=== PATIENT | female | born 1970 | race Caucasian/White ===

== ENCOUNTER 2017-02-19 19:04 | Emergency (ER) | payer MEDICARE, MEDICAID ==
[2017-02-19] MEDS ORDERED: BENZONATATE 100 MG CAPSULE PO ONE (20:11)
[2017-02-19] MEDS ORDERED: DEXAMETHASONE SOD PHOS INJ 10 MG/1 ML VIAL IM ONE (20:11)
[2017-02-19] MEDS ORDERED: ALBUTEROL SULFATE 0.083% NEB 2.5 MG/3 ML AMPUL NEB ONE (20:11)
--- NOTE | 2017-02-19 20:17 | ER Document Report ---
ED General - General Mode of Arrival: Ambulatory Information source: Patient TRAVEL OUTSIDE OF THE [place] IN LAST 30 DAYS: No - General Chief Complaint: Headache Stated Complaint: VOMITING Time Seen by Provider: 02/19/17 19:55 - HPI Notes: Patient is a 46-year-old female presented emergency department for cough headache and difficulty breathing. Patient states she has had these symptoms for 2 days. Patient states her cough is productive with thick green sputum. Patient also has some chills and rhinorrhea. Patient states she uses nebulizers and inhalers which have not been helping her. Patient does have seasonal allergies and she takes Claritin for such. Patient denies having a diagnosis of COPD. Patient is allergic to Prednisone and red dye but states she can take Decadron. (TITO FERNANDEZ) - Related Data Allergies/Adverse Reactions: prednisone [Prednisone] Allergy (Severe, Verified 02/19/17 19:09) Hives red dye [Red Dye] Allergy (Severe, Verified 02/19/17 19:09) Hives Past Medical History - General Information source: Patient - Social History Smoking Status: Current Every Day Smoker Cigarette use (# per day): Yes Chew tobacco use (# tins/day): No Smoking Education Provided: Yes - > 5 minutes Frequency of alcohol use: None Drug Abuse: None Family History: None Patient has suicidal ideation: No Patient has homicidal ideation: No - Past Medical History Cardiac Medical History: Reports: Hx Coronary Artery Disease, Hx Hypercholesterolemia, Hx Hypertension - on meds Pulmonary Medical History: Reports: Hx Asthma - inhalers,neb, Hx Bronchitis - hx of, Hx Pneumonia - hx of Neurological Medical History: Reports: Hx Cerebrovascular Accident - 2011, [facility] Endocrine Medical History: Reports: Hx Diabetes Mellitus Type 2 Musculoskeltal Medical History: Reports Hx Arthritis - generalized Psychiatric Medical History: Reports: Hx Bipolar Disorder, Hx Depression Past Surgical History: Reports: Hx Oral Surgery, Hx Orthopedic Surgery - R ankle , Hx Tonsillectomy - Immunizations Hx Diphtheria, Pertussis, Tetanus Vaccination: No Hx Pneumococcal Vaccination: 03/22/14 Review of Systems - Review of Systems Constitutional: See HPI, Chills. denies: Fever EENT: See HPI, Nose congestion Cardiovascular: No symptoms reported. denies: Chest pain Respiratory: See HPI, Cough, Short of breath, Sputum Gastrointestinal: No symptoms reported Musculoskeletal: No symptoms reported Skin: No symptoms reported Hematologic/Lymphatic: No symptoms reported Neurological/Psychological: See HPI, Headaches Physical Exam - Vital signs Interpretation: Normal - Vital signs Vitals: Temp Pulse Resp BP Pulse Ox 98.1 F 116 H 20 133/84 H 97 02/19/17 19:09 02/19/17 19:09 02/19/17 19:09 02/19/17 19:09 02/19/17 19:09 - Notes Notes: GENERAL: Alert, interacts well. Mild distress. HEAD: Normocephalic, atraumatic. EYES: Pupils equal, round, and reactive to light. Extraocular movements intact. ENT: Oral mucosa moist, tongue midline. NECK: Full range of motion. Supple. Trachea midline. LUNGS: Decreased air movement. Wet cough. Speaking 4-5 word sentences. Expiratory wheezes. No respiratory distress. HEART: Mild tachycardia. Regular rhythm. No murmurs, gallops, or rubs. ABDOMEN: Soft, non-tender. Non-distended. Bowel sounds present in all 4 quadrants. EXTREMITIES: Moves all 4 extremities spontaneously. No edema. No cyanosis. NEUROLOGICAL: Alert and oriented x3. Normal speech. PSYCH: Normal affect, normal mood. SKIN: Warm, dry, normal turgor. No rashes or lesions noted. (TITO FERNANDEZ) Course - Re-evaluation Re-evalutation: 02/19/17 21:45 Chest x-ray does not show any signs of pneumonia, oxygenating well, symptoms decreased with breathing treatments. Patient given dose of Decadron as she is allergic to prednisone, discharged to home on Decadron orally, albuterol and Tessalon Perles. (KATY SOFIA) - Vital Signs Vital signs: Temp Pulse Resp BP Pulse Ox 98.6 F 111 H 20 128/90 H 95 02/19/17 22:03 02/19/17 22:03 02/19/17 22:03 02/19/17 22:03 02/19/17 22:03 Discharge - Discharge Clinical Impression: Acute wheezy bronchitis, Tobacco abuse, Tobacco abuse counseling Hypertension Qualifiers: Hypertension type: essential hypertension Qualified Code(s): I10 - Essential ( primary) hypertension Condition: Stable Disposition: HOME, SELF-CARE Additional Instructions: Bronchitis You have acute bronchitis. This disease is an infection or inflammation of the air passageways in your lungs. Symptoms usually include cough, low grade fever, shortness of breath, and wheezing. The cough usually persists for a couple of weeks. Most cases of bronchitis get better without antibiotics. We prescribe antibiotics when we believe bacteria are damaging your airways, or if there's high risk the bronchitis will worsen into pneumonia. Increase your fluid intake. A cool mist humidifier may make your lungs more comfortable. An expectorant (cough medicine that loosens phlegm) can help. If you smoke, STOP!!! Recovery from bronchitis can be somewhat slow, but you should see improvement within a day or two. Repeated episodes of bronchitis may result in lung damage -- for example, chronic bronchitis, recurrent pneumonias, or emphysema. Call the doctor if you develop increasing fever, shortness of breath, chest pain, bloody sputum, or otherwise worsen. If you have not improved at all after several days, contact the physician. Prescriptions: Benzonatate [Tessalon Perles 100 mg Capsule] 100 mg PO Q8HP PRN #40 capsule PRN Reason: Dexamethasone [Decadron 4 Mg Tablet] 4 mg PO ONCE PRN #3 tablet PRN Reason: Forms: Smoking Cessation Education, Elevated Blood Pressure Referrals: MARYELLEN ZARATE MD [Primary Care Provider] - Follow up as needed Scribe Attestation: 02/19/17 23:57 I personally performed the services described in the documentation, reviewed and edited the documentation which was dictated to the scribe in my presence, and it accurately records my words and actions. (KATY SOFIA) Scribe Documentation - Scribe Written by Sebastien:: Sebastien Villanueva, 02/19/2017 23:22 acting as scribe for :: Inez
--- NOTE | 2017-02-19 21:24 | RADIOLOGY REPORT (SQ) ---
EXAM DESCRIPTION: CHEST PA/LAT COMPLETED DATE/TIME: 02/19/2017 9:10 pm REASON FOR STUDY: cough, wheeze, r/o pna COMPARISON: 03/18/2015 EXAM PARAMETERS: NUMBER OF VIEWS: two views TECHNIQUE: Digital Frontal and Lateral radiographic views of the chest acquired. RADIATION DOSE: NA LIMITATIONS: none FINDINGS: LUNGS AND PLEURA: No opacities, masses or pneumothorax. No pleural effusion. MEDIASTINUM AND HILAR STRUCTURES: No masses or contour abnormalities. HEART AND VASCULAR STRUCTURES: Heart normal size. No evidence for failure. BONES: No acute findings. HARDWARE: None in the chest. OTHER: No other significant finding. IMPRESSION: NO SIGNIFICANT RADIOGRAPHIC FINDING IN THE CHEST. TECHNICAL DOCUMENTATION: JOB ID: [id number] [email or web address]- All Rights Reserved
[2017-02-19 22:05] VITALS: BP 128/90
== END 2017-02-19 22:04 | disposition home or self-care (01) ==
LOC: ER 19:04
DX: J20.9 Acute bronchitis, unspecified (principal); R51 Headache; I10 Essential (primary) hypertension; F17.210 Nicotine dependence, cigarettes, uncomplicated; I25.10 Atherosclerotic heart disease of native coronary artery without angina pectoris; E78.00 Pure hypercholesterolemia, unspecified; I69.954 Hemiplegia and hemiparesis following unspecified cerebrovascular disease affecting left non-dominant side; E11.9 Type 2 diabetes mellitus without complications
CPT/HCPCS: 99406; 99283; 71020; A9270 ×2; J1100

== ENCOUNTER → 2017-03-30 | Outpatient (CLI) | payer MEDICARE, MEDICAID ==
--- NOTE | 2017-03-30 10:00 | RADIOLOGY REPORT (SQ) ---
EXAM DESCRIPTION: MRI LT LOWER JOINT WITHOUT COMPLETED DATE/TIME: 03/30/2017 9:43 am REASON FOR STUDY: OSTEOARTHRITIS LT KNEE M17.12 UNILATERAL PRIMARY OSTEOARTHRITIS, LEFT KNEE COMPARISON: None. TECHNIQUE: Leftknee images acquired and stored on PACS. Multiplanar images include fat sensitive se quences as T1, water sensitive sequences as FST2 or STIR, cartilage sensitive sequences as FSPD, and gradient echo sequences. LIMITATIONS: None. FINDINGS: JOINT AND BURSAE: No effusion. BONE CORTEX AND MARROW: No alteration of signal to suggest marrow replacement. No worrisome bone lesi ons. No occult fracture. ACL: Intact. No degeneration or ganglion cyst. PCL: Intact. MCL: Intact. No periligamentous edema or fluid. LCL: Intact. No periligamentous edema or fluid. MEDIAL MENISCUS: No tears. No abnormal signal. LATERAL MENISCUS: No tears. No abnormal signal. MEDIAL COMPARTMENT: Cartilage preserved. No bone bruises or reactive marrow edema. No osteophytes. LATERAL COMPARTMENT: Cartilage preserved. No bone bruises or reactive marrow edema. No osteophytes. PATELLA: Normal location. Irregular diffuse patellar chondral loss. This is full-thickness near the upper patellar apex with underlying subchondral cysts. Small osteophytes. EXTENSOR MECHANISM: Intact. Quadriceps and patella tendons normal. SOFT TISSUES: Small loculated hyperintense T2 lesion tracks superiorly along the medial knee, posteri or to the femur. This appears to track back towards the joint, suspect a popliteal cyst measuring at least in craniocaudal extent. Similar probable bursa or inferiorly dissecting deep popliteal cyst a s well. This likely measures just under 5 cm craniocaudal. OTHER: No other significant finding. IMPRESSION: 1. Chondromalacia patella. 2. Small superiorly and inferiorly deep dissecting popliteal cysts are suspected. 3. No cruciate or collateral ligament pathology. Menisci intact. TECHNICAL DOCUMENTATION: JOB ID: [id number] [employer]- All Rights Reserved
== END ==
LOC: RAD 08:46
PROVIDERS: ATTEND Orthopaedic Surgery Sports Medicine
DX: M17.12 Unilateral primary osteoarthritis, left knee (principal)

== ENCOUNTER → 2017-04-26 | Outpatient (CLI) | payer MEDICARE, MEDICAID ==
--- NOTE | 2017-04-26 16:48 | WOMENS IMAGING REPORT ---
EXAM DESCRIPTION: 3D SCREENING MAMMO BILAT COMPLETED DATE/TIME: 04/26/2017 12:03 pm REASON FOR STUDY: ROUTINE SCREENING; Z12.31 Z12.31 ENCNTR SCREEN MAMMOGRAM FOR MALIGNANT NEOPLASM O F SLAVA COMPARISON: March 2016 TECHNIQUE: Standard craniocaudal and mediolateral oblique views of each breast recorded using digita l acquisition and breast tomosynthesis. LIMITATIONS: None. FINDINGS: No masses, calcifications or architectural distortion. No areas of suspicion. Read with the assistance of CAD. .[facility] - R2 Cenova Version 1.3 .[facility] Imaging - R2 Cenova Version 1.3 .[facility] - R2 Cenova Version 2.4 .[facility] - R2 Cenova Version 2.4 .[facility] - R2 Learning [employer] Teacher Version 9.2 IMPRESSION: NORMAL MAMMOGRAM. BIRADS 1. BREAST DENSITY: b. There are scattered areas of fibroglandular density. BIRAD: 1 NEGATIVE RECOMMENDATION: ROUTINE SCREENING COMMENT: The patient has been notified of the results by letter per SA requirements. Additional no tification policies are in place for contacting patient with suspicious or incomplete findings. Quality ID #[id number]: The [employer] recommends an annual screening mammogram for women aged 40 years or over. This facility utilizes a reminder system to ensure that all patients receive reminder letters, and/or direct phone calls for appointments. This includes reminders for routine scr eening mammograms, diagnostic mammograms, or other Breast Imaging Interventions when appropriate. Th is patient will be placed in the appropriate reminder system. The [employer] (ACR) has developed recommendations for screening MRI of the breast s in certain patient populations, to be used in conjunction with mammography. Breast MRI surveillanc e may be appropriate for women with more than 20% lifetime risk of developing breast cancer as deter mined by genetic testing, significant family history of the disease, or history of mantle radiation f or Hodgkins Disease. ACR Practice Guidelines 2008. DBT Technology DBT is a type of tomographic mammography. With conventional mammography, overlapping breast tissue ma y make lesions difficult to detect, even with good compression. DBT uses an x-ray tube that rotates a round the breast, taking images at different angles. These images are then combined to create thin sl ices of the breast that the radiologist can view as a 3D reconstruction. The [facility] unit can perform full-field digital mammograms (2D imaging); or DBT (3D imaging); or both, in a combination mode that quickly performs both the mammogram and the tomosynthesis scan while the breast is still compressed. PQRS 6045F: Fluoroscopic imaging is not utilized for breast tomosynthesis. TECHNICAL DOCUMENTATION: FINDING NUMBER: (1) ASSESSMENT: (1) JOB ID: [id number] [employer]- All Rights Reserved
== END ==
LOC: WI 11:39
PROVIDERS: ATTEND Internal Medicine
DX: Z12.31 Encounter for screening mammogram for malignant neoplasm of breast (principal)
CPT/HCPCS: 77063; G0202; 77067

== ENCOUNTER 2017-06-06 16:34 | Observation (INO) | payer MEDICARE, MEDICAID ==
--- NOTE | 2017-06-06 16:56 | RADIOLOGY REPORT (SQ) ---
EXAM DESCRIPTION: CT HEAD WITHOUT COMPLETED DATE/TIME: 06/06/2017 4:48 pm REASON FOR STUDY: Stroke-like symptoms COMPARISON: 03/18/2012. TECHNIQUE: Axial images acquired through the brain without intravenous contrast. Images reviewed wi th bone, brain and subdural windows. Images stored on PACS. All CT scanners at this facility use dose modulation, iterative reconstruction, and/or weight based d osing when appropriate to reduce radiation dose to as low as reasonably achievable (ALARA). [facility]: Dose Right [facility]: CareDose [facility]: Dose Right [facility]: Teradose 4D [facility]: EntrenaYa RADIATION DOSE: CT Rad equipment meets quality standard of care and radiation dose reduction techniq ues were employed. CTDIvol: 64.6 mGy. DLP: 1163 mGy-cm. mGy. LIMITATIONS: None. FINDINGS: VENTRICLES: Normal size and contour. CEREBRUM: No masses. No hemorrhage. No midline shift. No evidence for acute infarction. Normal gra y/white matter differentiation. No areas of low density in the white matter. CEREBELLUM: No masses. No hemorrhage. No alteration of density. No evidence for acute infarction. EXTRAAXIAL SPACES: No fluid collections. No masses. ORBITS AND GLOBE: No intra- or extraconal masses. Normal contour of globe without masses. CALVARIUM: No fracture. PARANASAL SINUSES: No fluid or mucosal thickening. SOFT TISSUES: No mass or hematoma. OTHER: No other significant finding. IMPRESSION: NORMAL BRAIN CT WITHOUT CONTRAST. EVIDENCE OF ACUTE STROKE: NO. COMMENT: Quality ID # [id number]: Final reports with documentation of one or more dose reduction techniques (e.g., Automated exposure control, adjustment of the mA and/or kV according to patient size, use of iterative reconstruction technique) TECHNICAL DOCUMENTATION: JOB ID: [id number] [employer]- All Rights Reserved
--- NOTE | 2017-06-06 17:08 | RADIOLOGY REPORT (SQ) ---
EXAM DESCRIPTION: CHEST SINGLE VIEW COMPLETED DATE/TIME: 06/06/2017 4:52 pm REASON FOR STUDY: Stroke-like symptoms COMPARISON: 02/19/2017. EXAM PARAMETERS: NUMBER OF VIEWS: One view. TECHNIQUE: Single frontal radiographic view of the chest acquired. RADIATION DOSE: NA LIMITATIONS: None. FINDINGS: LUNGS AND PLEURA: No opacities, masses or pneumothorax. No pleural effusion. MEDIASTINUM AND HILAR STRUCTURES: No masses. Contour normal. HEART AND VASCULAR STRUCTURES: Heart normal in size. Normal vasculature. BONES: No acute findings. HARDWARE: None in the chest. OTHER: No other significant finding. IMPRESSION: NO ACUTE RADIOGRAPHIC FINDING IN THE CHEST. TECHNICAL DOCUMENTATION: JOB ID: [id number] [employer]- All Rights Reserved
[2017-06-06] MEDS ORDERED: ASPIRIN 325 MG TABLET PO ONE (17:12)
--- NOTE | 2017-06-06 17:21 | ER Document Report ---
ED Neuro Symptoms/Deficit - General Mode of Arrival: Ambulatory Information source: Patient Notes: 47 year old female with history of CVA (2011), TIA x7 (most recent 2015), hypertension, hyperlipidemia, and diabetes mellitus presents to the ED complaining of left sided numbness and altered sensation that started yesterday. Patient reports that her left side feels like 'bricks', is heavy, and is having difficulty moving her left upper and lower extremities. Patient additionally complains of a 'thick' feeling to her tongue and is experiencing some difficulty talking. Patient denies any pain. Patient's last known normal is unknown, but symptoms began yesterday. Patient denies changes in vision, nausea, or vomiting. Family reports that the patient's left her 2 weeks ago and the patient has been worked up secondary to this. Following her stroke in 2011, the patient regained some feeling in her left extremities, but explains that today she feels worse and is similar to when she had her stroke in 2012. PCP: Dr. Anderson Neurologist: Dr. Delgadillo ([place]) TRAVEL OUTSIDE OF THE [place] IN LAST 30 DAYS: No - HPI Patient complains to provider of: Weakness - left side Onset: Yesterday Exact time of onset: unknown Symptoms are: Constant Loss of consciousness: No loss of consciousness Baseline Cognitive: Alert, oriented X 3 Alert To: Name/Voice New weakness: LUE, LLE Altered sensation: LLE Associated symptoms: Other - see notes above <AZUL VILLANUEVA - Last Filed: 06/06/17 19:54> <KATY SOFIA - Last Filed: 06/06/17 23:25> - General Chief Complaint: Numbness Stated Complaint: LEFT SIDE PAIN Time Seen by Provider: 06/06/17 16:54 - Related Data Allergies/Adverse Reactions: prednisone [Prednisone] Allergy (Severe, Verified 02/19/17 19:09) Hives red dye [Red Dye] Allergy (Severe, Verified 02/19/17 19:09) Hives Home Medications: Current Home Medications Desvenlafaxine Succinate [Pristiq] 100 mg PO DAILY 06/06/17 [History] Folic Acid/Multivit,Iron,[place] [One Daily For Women Tablet] 1 tab PO DAILY 06/06 [History] Insulin Aspart [Novolog Insulin (Aspart) 100 unit/mL] See Protocol SQ PRN PRN 12 /25/17 [History] Pregabalin [Lyrica] 75 mg PO DAILY 06/06/17 [History] Verapamil HCl [Verapamil ER] 120 mg PO DAILY 06/06/17 [History] Past Medical History - General Information source: Patient - Social History Smoking Status: Current Every Day Smoker Chew tobacco use (# tins/day): No Frequency of alcohol use: None Drug Abuse: None Family History: None - Past Medical History Cardiac Medical History: Reports: Hx Coronary Artery Disease, Hx Hypercholesterolemia, Hx Hypertension - on meds Denies: Hx Heart Attack Pulmonary Medical History: Reports: Hx Asthma - inhalers,neb, Hx Bronchitis - hx of, Hx Pneumonia - hx of Denies: Hx COPD, Hx Tuberculosis Neurological Medical History: Reports: Hx Cerebrovascular Accident - 2012, L side seakness TIA x7 (most recent 2015). Denies: Hx Seizures Endocrine Medical History: Reports: Hx Diabetes Mellitus Type 2 Renal/ Medical History: Denies: Hx Peritoneal Dialysis Musculoskeltal Medical History: Reports Hx Arthritis - generalized Psychiatric Medical History: Reports: Hx Bipolar Disorder, Hx Depression Past Surgical History: Reports: Hx Oral Surgery, Hx Orthopedic Surgery - R ankle , Hx Tonsillectomy - Immunizations Hx Diphtheria, Pertussis, Tetanus Vaccination: No Hx Pneumococcal Vaccination: 03/22/14 <AZUL VILLANUEVA - Last Filed: 06/06/17 19:54> Review of Systems - Review of Systems Constitutional: No symptoms reported EENT: No symptoms reported. denies: Blurred vision, Double vision Cardiovascular: No symptoms reported Respiratory: No symptoms reported Gastrointestinal: No symptoms reported. denies: Nausea, Vomiting Genitourinary: No symptoms reported Female Genitourinary: No symptoms reported Musculoskeletal: See HPI, Other - Left upper and lower extremity weakness Skin: No symptoms reported Hematologic/Lymphatic: No symptoms reported Neurological/Psychological: See HPI, Sensory change - left sided and tongue, Weakness - left upper and lower extremity weakness, Speech impairment, Numbness - left sided -: Yes All other systems reviewed and negative <AZUL VILLANUEVA - Last Filed: 06/06/17 19:54> Physical Exam - Notes Notes: GENERAL: Alert, interacts well. No acute distress. HEAD: Normocephalic, atraumatic. EYES: Pupils equal, round, and reactive to light. Extraocular movements intact. Central visual field intact, bilaterally. Peripheral vision decreased, bilaterally. ENT: Oral mucosa moist, tongue midline. NECK: Full range of motion. Supple. Trachea midline. LUNGS: Clear to auscultation bilaterally, no wheezes, rales, or rhonchi. No respiratory distress. HEART: Regular rate and rhythm. No murmurs, gallops, or rubs. ABDOMEN: Soft, non-tender. Non-distended. Bowel sounds present in all 4 quadrants. EXTREMITIES: Moves all 4 extremities spontaneously, but has left upper extremity drift and is unable to hold left lower extremity above the bed for more than 5 seconds. No edema, radial and dorsalis pedis pulses 2/4 bilaterally. No cyanosis. Weakness to the left upper and lower extremities. NEUROLOGICAL: Alert and oriented x3. Normal speech. Cranial nerves II through XII grossly intact. Finger to Nose test normal, bilaterally. [id number] test normal, bilaterally. Slightly decreased audience coordinator strength on the left. Right audience coordinator strength normal. Loss of complete sensation to the left lower extremity. Left upper extremity and right extremities sensation intact. PSYCH: Normal affect, normal mood. SKIN: Warm, dry, normal turgor. No rashes or lesions noted. <AZUL VILLANUEVA - Last Filed: 06/06/17 19:54> - Vital signs Vitals: Pulse Resp BP Pulse Ox 87 21 H 127/97 H 95 06/06/17 16:41 06/06/17 16:41 06/06/17 16:41 06/06/17 16:41 <KATY SOFIA - Last Filed: 06/06/17 23:25> Course - Laboratory Result Diagrams: 06/06/17 17:25 06/06/17 17:25 - Consults Dr. Short Time consulted: 18:21 Reason for consultation: 06/06/17 18:21 Not accepting admits until 19:15. Dr. Liang Time consulted: 18:23 Reason for consultation: 06/06/17 18:23 Not accepting admits until 19:15. Dr. Rodriguez Time consulted: 19:21 Reason for consultation: 06/06/17 19:21 Patient was discussed with Dr. Rodriguez and he agrees to admit the patient. <AZUL VILLANUEVA - Last Filed: 06/06/17 19:54> - Re-evaluation Re-evalutation: 06/06/17 19:27 Symptoms consistent with a stroke, they onset close to 24 hours ago therefore she is not a candidate for TPA. Not a candidate for CT perfusion to look for mismatch and possible clot retrieval given how long ago the symptoms started. CBC shows slight leukocytosis of 10.7 CMP unremarkable, cardiac enzymes negative , CT scan of the head negative, coags normal. Chest x-ray shows no acute process. No evidence of atrial fibrillation on her EKG or while she has been here in the emergency department. Discussed patient with Dr. Rodriguez who agrees to admit the patient to his service on [facility]. 06/06/17 23:25 Hospitalist will continue to manage hypertension - Vital Signs Vital signs: Temp Pulse Resp BP Pulse Ox 98.0 F 87 16 134/83 H 94 06/06/17 17:04 06/06/17 16:41 06/06/17 18:16 06/06/17 18:16 06/06/17 18:16 - Laboratory Result Diagrams: 06/06/17 17:25 06/06/17 17:25 Laboratory results interpreted by me: 06/06/17 06/06/17 17:25 17:25 WBC 10.7 H Glucose 115 H - EKG Interpretation by Me Additional EKG results interpreted by me: 06/06/17 19:28 EKG shows sinus rhythm at a rate of 93, right axis deviation, normal intervals, no ST segment elevations or depressions, nonspecific T-wave inversions in lead III per my interpretation. <KATY SOFIA - Last Filed: 06/06/17 23:25> ED Alteplase Inc/Exc Criteria - Date/Time patient arrived in ED: _: 06/06/2017 16:34 <AZUL VILLANUEVA - Last Filed: 06/06/17 19:54> - Date/Time patient last known well: Date/Time: unknown - Inclusion Criteria: 1: Patient presented to ED within 3 hours of acute ischemic stroke symptom onset ? -: No 2: Did baseline CT exclude intracranial hemorrhage and/or other risk factors? -: Yes 3: Is the age of the patient 18 years of age or greater? -: Yes : If any of the above questions are answered "NO" then stop, patient is not a candidate for Alteplase, : If all of the above questions are answered "YES" then continue with Exclusion Criteria. - The patient is: -: Included and is eligible to receive Alteplase. *Initiate bed placement at higher level of care* Reviewd risks & benefits of thrombolytic therapy: I have reviewed the risks and benefits of thrombolytic therapy with the patient and/or his/her family. -: Excluded and not eligible to receive Alteplase for the above exclusions. --: Yes - onset over 6 hours ago -: Excluded and not eligible to receive Alteplase for other reasons (specify in comments): - Diagnosis of TIA: -: Patient presented with transient symptoms that are now resolved and no other neurologic findings are currently present. List symptoms in comments. -: Patient is NOT a candidate for tPA. -: Yes -: ____(put name in comment) has been consulted for admission and continued evaluation of risk factor assessment. Comment: Michael <KATY SOFIA - Last Filed: 06/06/17 23:25> ED NIH Stroke Scale - NIH Stroke Scale When completed:: Before Alteplase *: 1. NIH scale should be completed with appropriate accompanying assessment tools. *: 2. The NIH should reflect what the patient is capable of doing and should not be coached by the clinician. 1a. Level of Consciousness: 0=Alert;keenly responsive -: 1=Drowsy -: 2=Obtunded -: 3=Coma/unresponsive or reflex to noxious stimuli. 1a. Responses: 0 1b. Orientation Questions: a. What month is it? -: b. How old are you? -: 0=Answers both questions correctly. -: 1=Answers one question correctly or patient is intubated or has orotracheal trauma. -: 2=Answers neither question correctly. 1b. Responses: 0 1c. Response to commands: a. Open and close eyes? -: b. Stock Checkerer and release hand? -: Credit is given despite weakness. Demonstration of task is permitted. Substitute command if hands cannot be used. -: 0=Performs both tasks correctly -: 1=Performs one task correctly -: 2=Performs neither task correctly 1c. Responses: 0 2. Gaze: Establish eye contact and instruct patient to "Follow my finger" -: 0=Normal -: 1=Partial gaze palsy. Gaze is abnormal in one or both eyes, but where forced deviation or total gaze paresis is not present. -: 2=Forced deviation or total gaze paresis. 2. Responses: 0 3. Visual Dyson: Sees fingers in all four quadrants. -: 0=No visual loss. -: 1=Partial hemianopsia. -: 2=Complete hemianopsia. -: 3=Bilateral hemianopsia (including Cortical blindness) 3. Responses: 0 - Visual field is intact centrally, bilaterally. Peripheral vision decreased, bilaterally. 4. Facial Movement: Instruct patient to: -: a. Show me your teeth -: b. Raise your eyebrows -: c. Close your eyes -: d. Smile -: 0=Normal symmetrical movement -: 1=Minor paralysis (flattened nasolabial fold, asymmetry on smiling). -: 2=Partial paralysis (total or near total paralysis of lower face). -: 3=Complete paralysis of upper and lower face 4. Responses: 0 5. Motor functions (left arm): Alternate sides and extend each arm with palms down (90 degrees if sitting or 45 degrees for supine). -: 0=No drift;limb holds for full 10 seconds. -: 1=Drift; limb holds but drifts down before full 10 seconds, but does not hit bed. -: 2=Some effort against gravity; limb cannot get to or maintain position. -: 3=No effort against gravity; limb falls. -: 4=No movement. -: UN=Amputation, joint fusion, explain in comments. 5. Responses (left arm): 1 5. Motor Functions (right arm): Alternate sides and extend each arm with palms down (90 degrees if sitting or 45 degrees for supine). -: 0=No drift;limb holds for full 10 seconds. -: 1=Drift; limb holds but drifts down before full 10 seconds, but does not hit bed. -: 2=Some effort against gravity; limb cannot get to or maintain position. -: 3=No effort against gravity; limb falls. -: 4=No movement. -: UN=Amputation, joint fusion, explain in comments. 5. Responses (right arm): 0 6. Motor Functions (left leg): With patient lying supine, alternate sides and extend each leg (30 degrees always while supine). -: 0=No drift, leg holds position for full 5 seconds -: 1=Drift; leg falls before full 5 seconds but does not hit bed. -: 2=Some effort against gravity, leg falls to bed but some effort against gravity. -: 3=No effort against gravity, leg falls to bed immediately. -: 4=No movement. -: UN=Amputation, joint fusion; explain in comments. 6. Responses (left leg): 2 6. Motor Functions (right leg): With patient lying supine, alternate sides and extend each leg (30 degrees always while supine). -: 0=No drift, leg holds position for full 5 seconds -: 1=Drift; leg falls before full 5 seconds but does not hit bed. -: 2=Some effort against gravity, leg falls to bed but some effort against gravity. -: 3=No effort against gravity, leg falls to bed immediately. -: 4=No movement. -: UN=Amputation, joint fusion; explain in comments. 6. Responses (right leg): 0 7. Limb Ataxia: With eyes open instruct patient to: -: a. "Touch your finger to your nose". -: b. "Touch your heel to your h[place]" -: 0=Absent -: 1=Present in one limb. -: 2=Present in two limbs. -: UN=Amputation or joint fusion; explain in comments. 7. Responses: 0 8. Sensory: Test sensation using pinprick or noxious stimuli. Test as many body parts as possible. -: 0=Normal;no sensory loss -: 1=Mile to moderate sensory loss (patient feels pin prick but is less sharp on affected side). -: 2=Severe or total sensory loss. 8. Responses: 2 - Left lower extremity 9. Best Language: Instruct patient to: -: a. "Describe what you see in this picture." -: b. "Name the items in this picture." -: c. "Read these sentences." -: 0=No aphasia, normal -: 1=Mild to moderate aphasia. -: 2=Severe aphasia -: 3=Mute, global aphasia, no usable speech or auditory comprehension. 9. Responses: 1 10. Articulation, Dysarthia: Instruct patient to: -: "Read these words" or "Repeat these words" -: 0=Normal -: 1=Mild to moderate; patient may slur some words but can be understood without difficulty. -: 2=Severe; patients speech so slurred as to be unintelligible in the absence of dysphasia. -: UN=Intubated or other physical barrier, explain in comments. 10. Responses: 0 11. Extinction or inattention: 0=No abnormality -: 1= Visual, tactile, auditory, spatial, or personal inattention or extinction to bilateral simulation in one or the sensory modalities. -: 2=Profound cristopher-inattention or cristopher-inattention to more than one modality; does not recognize own hand. 11. Responses: 0 Total Score: 6 Notes: Completed at 1709. <AZUL VILLANUEVA - Last Filed: 06/06/17 19:54> Discharge <AZUL VILLANUEVA - Last Filed: 06/06/17 19:54> - Discharge Admitting Provider: [facility] Admitted: ELINA Scribe Attestation: 06/06/17 23:25 I personally performed the services described in the documentation, reviewed and edited the documentation which was dictated to the scribe in my presence, and it accurately records my words and actions. <KATY SOFIA - Last Filed: 06/06/17 23:25> - Discharge Clinical Impression: Acute CVA (cerebrovascular accident) Hypertension Qualifiers: Hypertension type: essential hypertension Qualified Code(s): I10 - Essential ( primary) hypertension Condition: Fair Disposition: ADMITTED INPATIENT Scribe Documentation - Scribe Written by Abdulazizibe:: Sebastien Prado, 06/06/2017 1733 acting as scribe for :: Inez <AZUL VILLANUEVA - Last Filed: 06/06/17 19:54>
[2017-06-06 17:44] LABS: ABSOLUTE BASOPHILS # (AUTO) 0.1 10^3/uL (0.0-0.2); ABSOLUTE EOSINOPHILS # (AUTO) 0.3 10^3/uL (0.0-0.6); ABSOLUTE LYMPHOCYTES (AUTO) 2.5 10^3/uL (0.5-4.7); ABSOLUTE MONOCYTES (AUTO) 0.6 10^3/uL (0.1-1.4); ABSOLUTE NEUT (AUTO) 7.2 10^3/uL (1.7-8.2); BASOPHILS % (AUTO) 0.8 % (0-2); EOSINOPHILS % (AUTO) 2.4 % (0-6); HEMATOCRIT 38.5 % (36.0-47.0); MEAN CORPUSCULAR HEMOGLOBIN 31.3 pg (27.0-33.4); MEAN CORPUSCULAR HGB CONC 33.8 g/dL (32.0-36.0); MEAN CORPUSCULAR VOLUME 93 fl (80-97); MONOCYTES % (AUTO) 5.9 % (3-13); PLATELET COUNT 167 10^3/uL (150-450); RED BLOOD COUNT 4.15 10^6/uL (3.72-5.28); SEGMENTED NEUTROPHILS % (AUTO) 67.9 % (42-78); TOTAL CELLS COUNTED % (AUTO) 100 %; WHITE BLOOD COUNT 10.7 10^3/uL (4.0-10.5)
[2017-06-06 17:46] LABS: PARTIAL THROMBOPLASTIN TIME 31.3 SEC (23.5-35.8); PROTHROMBIN TIME 12.8 SEC (11.4-15.4)
[2017-06-06 18:04] LABS: ALANINE AMINOTRANSFERASE 37 U/L (9-52); ALBUMIN 3.8 g/dL (3.5-5.0); ALKALINE PHOSPHATASE 96 U/L (38-126); ANION GAP 8 (5-19); ASPARTATE AMINO TRANSFERASE 26 U/L (14-36); BILIRUBIN,DIRECT 0.3 mg/dL (0.0-0.4); BILIRUBIN,TOTAL 0.5 mg/dL (0.2-1.3); BLOOD UREA NITROGEN 7 mg/dL (7-20); CALCIUM 9.7 mg/dL (8.4-10.2); CARBON DIOXIDE 27 mmol/L (22-30); CHLORIDE 104 mmol/L (98-107); CREATINE KINASE 74 U/L (30-135); GLUCOSE 115 mg/dL (75-110); POTASSIUM 4.2 mmol/L (3.6-5.0); SODIUM 138.9 mmol/L (137-145); TOTAL PROTEIN 6.4 g/dL (6.3-8.2)
[2017-06-06 18:16] LABS: CREATINE KINASE MB 0.49 ng/mL (<4.55)
[2017-06-06 18:18] LABS: TROPONIN I < 0.012 ng/mL
[2017-06-06] MEDS ORDERED: GLUCAGON,HUMAN RECOMB 1 MG INJ IM PRN (19:34)
[2017-06-06] MEDS ORDERED: MAGNESIUM HYDROXIDE SUSP 30 ML UDCUP PO PRN (19:34)
[2017-06-06] MEDS ORDERED: DEXTROSE 50%-WATER 25 GM/50 ML DISP.SYRIN IV PRN ×2 (19:34)
[2017-06-06] MEDS ORDERED: DOCUSATE SODIUM 100 MG CAPSULE PO PRN (19:34)
[2017-06-06] MEDS ORDERED: DEXTROSE 40% GEL 15 GM TUBE PO PRN ×2 (19:34)
--- NOTE | 2017-06-06 22:11 | EKG REPORT ---
SEVERITY:- OTHERWISE NORMAL ECG - SINUS RHYTHM RIGHT AXIS DEVIATION : Confirmed by: Leonel Recinos 06-Jun-2017 22:10:43
[2017-06-07] MEDS: ATORVASTATIN CALCIUM 20 MG TABLET PO SCH ×2 (00:09→21:44)
[2017-06-07] MEDS: HEPARIN SOD (PORCINE) 5,000 UNIT/ML 1 ML SYRINGE SUBCUT SCH ×4 (00:09→21:44)
[2017-06-07] MEDS ORDERED: INFLUENZA ADLT QUAD (36MOS+) 2017-18 VAC 0.5 ML SYR IM PRN (01:28)
[2017-06-07 06:21] LABS: TRIGLYCERIDES 202 mg/dL (<150)
[2017-06-07 06:32] LABS: DIRECT LDL 58 mg/dL (<100)
--- NOTE | 2017-06-07 06:39 | PDOC H&P ---
History of Present Illness Admission Date/PCP: 06/06/17 20:16 MARYELLEN ZARATE MD Patient complains of: 24 hours of left-sided weakness History of Present Illness: MELISSA NAGEL is a 47 year old female with a past medical history of diabetes, hypertension, morbid obesity, bipolar depression, multiple TIAs without long-term deficit or positive imaging. Patient presents with greater than 24 hours of vague left-sided weakness and numbness. Denies recent change in medications headache, palpitations, nausea vomiting or confusion. She admits exceptional social stressors undergoing separation and what sounds like assault charges from her spouse. Past Medical History Cardiac Medical History: Reports: Coronary Artery Disease, Hyperlipidema, Hypertension - on meds Denies: Myocardial Infarction Pulmonary Medical History: Reports: Asthma - inhalers,neb, Bronchitis - hx of, Pneumonia - hx of Denies: Chronic Obstructive Pulmonary Disease (COPD), Tuberculosis Neurological Medical History: Denies: Seizures Endocrine Medical History: Reports: Diabetes Mellitus Type 2, Obesity Musculoskeltal Medical History: Reports: Arthritis - generalized Psychiatric Medical History: Reports: Bipolar Disorder, Depression, Tobacco Dependency Hematology: Denies: Anemia Past Surgical History Past Surgical History: Reports: Orthopedic Surgery - R ankle, Tonsillectomy Social History Smoking Status: Current Every Day Smoker Cigarettes Packs Per Day: 3 Number of Years Smokin Hx Recreational Drug Use: No Drugs: None Hx Prescription Drug Abuse: No - Advance Directive Resuscitation Status: Full Code Family History Family History: DM Parental Family History Reviewed: Yes Children Family History Reviewed: Yes Sibling(s) Family History Reviewed.: Yes Medication/Allergy Home Medications: Albuterol Sulfate [Proventil 0.5% Neb 2.5 mg/0.5 mL Vial] 2.5 mg IH Q4HP PRN 27/05 Gabapentin [Neurontin 100 Mg Capsule] 100 mg PO TID 11/14/11 Ascorbic Acid [Vitamin C] 500 mg PO DAILY 03/19/12 Aspirin [Aspirin 81 mg Chewable Tablet] 325 mg PO DAILY 03/19/12 Metformin HCl 1,000 mg PO BID 03/22/12 Ezetimibe [Zetia 10 mg Tablet] 10 mg PO DAILY 07/29/13 Buspirone HCl [Buspar 30 mg Tablet] 10 mg PO DAILY 08/22/14 Linaclotide [Linzess 145 Mcg Capsule] 145 mcg PO DAILY 04/01/15 Atorvastatin Calcium 20 mg PO QHS 04/03/15 Cyanocobalamin (Vitamin B-12) [Vitamin B12] 1,000 mg PO BID 04/03/15 Hydrochlorothiazide 50 mg PO DAILY 04/03/15 Indomethacin [Indocin 25 Mg Capsule] 25 mg PO TID 04/03/15 Insulin Pump 70-30 See Protocol SQ CONTINUOUS PRN 04/03/15 Lisinopril 5 mg PO DAILY 04/03/15 Potassium Citrate [Urocit-K] 10 meq PO DAILY 04/03/15 Vitamin B6 100 mg PO DAILY 04/03/15 Tramadol HCl [Ultram] 50 mg PO BID #14 tablet 04/17/15 Desvenlafaxine Succinate [Pristiq] 100 mg PO DAILY 06/06/17 Folic Acid/Multivit,Iron,[place] Hammer Machine Operator [One Daily For Women Tablet] 1 tab PO DAILY 06/06 Insulin Aspart [Novolog Insulin (Aspart) 100 unit/mL] See Protocol SQ PRN PRN Pregabalin [Lyrica] 75 mg PO DAILY 06/06/17 Verapamil HCl [Verapamil ER] 120 mg PO DAILY 06/06/17 Allergies/Adverse Reactions: prednisone [Prednisone] Allergy (Severe, Verified 02/19/17 19:09) Hives red dye [Red Dye] Allergy (Severe, Verified 02/19/17 19:09) Hives Review of Systems ROS unobtainable: Due to mental status - History felt unreliable as she answers affirmatively to all questions Constitutional: ABSENT: chills, fever(s), headache(s), weight gain, weight loss Eyes: ABSENT: visual disturbances Ears: ABSENT: hearing changes Cardiovascular: ABSENT: chest pain, dyspnea on exertion, edema, orthropnea, palpitations Respiratory: ABSENT: cough, hemoptysis Gastrointestinal: ABSENT: abdominal pain, constipation, diarrhea, hematemesis, hematochezia, nausea, vomiting Genitourinary: ABSENT: dysuria, hematuria Musculoskeletal: ABSENT: joint swelling Integumentary: ABSENT: rash, wounds Neurological: ABSENT: abnormal gait, abnormal speech, confusion, dizziness, focal weakness, syncope Psychiatric: ABSENT: anxiety, depression, homidical ideation, suicidal ideation Endocrine: ABSENT: cold intolerance, heat intolerance, polydipsia, polyuria Hematologic/Lymphatic: ABSENT: easy bleeding, easy bruising Physical Exam Vital Signs: Temp Pulse Resp BP Pulse Ox 97.7 F 73 19 117/62 96 06/07/17 04:24 06/07/17 04:24 06/07/17 04:24 06/07/17 04:24 06/07/17 04:24 Intake & Output 06/05/17 06/06/17 06/07/17 11:59 11:59 11:59 Intake Total 0 Output Total 0 Balance 0 Weight 127.3 kg General appearance: PRESENT: no acute distress, cooperative, morbidly obese Head exam: PRESENT: atraumatic, normocephalic Eye exam: PRESENT: conjunctiva pink, EOMI, PERRLA. ABSENT: scleral icterus Ear exam: PRESENT: normal external ear exam Mouth exam: PRESENT: moist, tongue midline Neck exam: ABSENT: carotid bruit, JVD, lymphadenopathy, thyromegaly Respiratory exam: PRESENT: clear to auscultation jean. ABSENT: rales, rhonchi, wheezes Cardiovascular exam: PRESENT: RRR. ABSENT: diastolic murmur, rubs, systolic murmur Pulses: PRESENT: normal dorsalis pedis pul Vascular exam: PRESENT: normal capillary refill GI/Abdominal exam: PRESENT: normal bowel sounds, soft. ABSENT: distended, guarding, mass, organolmegaly, rebound, tenderness Rectal exam: PRESENT: deferred Extremities exam: PRESENT: full ROM. ABSENT: calf tenderness, clubbing, pedal edema Neurological exam: PRESENT: alert, awake, oriented to person, oriented to place , oriented to time, oriented to situation, CN II-XII grossly intact. ABSENT: motor sensory deficit Psychiatric exam: PRESENT: appropriate affect, normal mood. ABSENT: homicidal ideation, suicidal ideation Skin exam: PRESENT: dry, intact, warm. ABSENT: cyanosis, rash Results Impressions: Chest X-Ray 06/06/17 16:40 IMPRESSION: NO ACUTE RADIOGRAPHIC FINDING IN THE CHEST. Head CT 06/06/17 16:40 IMPRESSION: NORMAL BRAIN CT WITHOUT CONTRAST. EVIDENCE OF ACUTE STROKE: NO. Assessment & Plan - Diagnosis (1) TIA (transient ischemic attack) Is this a current diagnosis for this admission?: Yes Plan: Obtain records from [facility] for recent TIA and MRI, Dr. Thornton her neurologist, on aspirin consider Aggrenox, continue statin. No clear current deficits case complicated by bipolar affect. Will obtain physical therapy eval. (2) Bipolar affective Is this a current diagnosis for this admission?: Yes Plan: Medication reconciliation and incomplete, patient does not know her regiment (3) Diabetes Is this a current diagnosis for this admission?: Yes Plan: Obtain A1c and sliding scale hold metformin. (4) Morbid obesity Is this a current diagnosis for this admission?: Yes Plan: Morbid obesity will evaluate for metabolic cause with evaluation of thyroid function and dietitian consultation (5) Hypertension Qualifiers: Hypertension type: essential hypertension Qualified Code(s): I10 - Essential (primary) hypertension Is this a current diagnosis for this admission?: Yes Plan: Medication reconciliation pending, permissive hypertension (6) Tobacco dependency Is this a current diagnosis for this admission?: Yes Plan: Tobacco Dependence patient received tobacco cessation counseling and offered nicotine replacement options - Time Time Spent: 50 to 70 Minutes - Inpatient Certification Medical Necessity: Need Close Monitoring Due to Risk of Patient Decompensation
[2017-06-07 06:42] LABS: VLDL CHOLESTEROL 40.4 mg/dL (10-31)
--- NOTE | 2017-06-07 08:31 | RADIOLOGY REPORT (SQ) ---
EXAM DESCRIPTION: MRI HEAD WITHOUT COMPLETED DATE/TIME: 06/07/2017 7:46 am REASON FOR STUDY: left sided weakness and numbness COMPARISON: CT dated 06/06/2017. TECHNIQUE: Multiplanar imaging includes non-contrasted T1, T2, FLAIR, and diffusion with ADC map seq uences. Images stored on PACS. LIMITATIONS: None. FINDINGS: ANATOMY: No anomalies. Normal vascular flow voids. Pituitary fossa normal. CSF SPACES: Normal in size and contour. No hemorrhage. CEREBRUM: Sulci and gyri normal in size and contour. Normal white matter signal on FLAIR imaging. No evidence of hemorrhage, mass, or extraaxial fluid collection. POSTERIOR FOSSA: No signal alteration. No hemorrhage. No edema, masses or mass effect. Internal ly tory canals, cerebello-pontine angles, mastoids normal. DIFFUSION IMAGING: Negative for acute or sub-acute infarction. ORBITS: No masses. Globes normal. PARANASAL SINUSES: No fluid levels. Mucosa normal. OTHER: No other significant finding. IMPRESSION: NORMAL MRI OF THE BRAIN WITHOUT INTRAVENOUS GADOLINIUM CONTRAST. EVIDENCE OF ACUTE STROKE: NO. TECHNICAL DOCUMENTATION: JOB ID: [id number] [employer]- All Rights Reserved
[2017-06-07] MEDS: ASPIRIN 325 MG TABLET, ENT COATED PO SCH (09:59)
[2017-06-07] MEDS: VERAPAMIL HCL 120 MG TABLET.SA PO SCH (09:59)
[2017-06-07] MEDS: INSULIN LISPRO 100 UNIT/ML 3 ML VIAL SUBCUT PRN ×2 (13:38→17:20)
[2017-06-07] MEDS ORDERED: NICOTINE 21 MG/24 HR PATCH.TD24 TD PRN (13:46)
--- NOTE | 2017-06-07 14:53 | PROGRESS NOTE E ---
Progress Note NAME: MELISSA NAGEL : 1970 AGE: 47Y DATE: 06/07/2017 ROOM: 323 SUBJECTIVE: The patient is currently lying in bed. The patient states that she still feels weak in her left upper and lower extremity and describes numbness. The patient has been afebrile. Blood pressures have been in a good range. There have been no reported episodes of nausea, vomiting or diarrhea, shortness of breath, dizziness, chest pain. No fever or chills. The patient has been afebrile. Blood pressures have been in a good range. Patient does not voice any other concerns at this time. REVIEW OF SYSTEMS: Rest of the review of systems negative. MEDICATIONS: Have been reviewed. OBJECTIVE: GENERAL: The patient is a 47-year-old female who is awake, alert, and oriented to person, place, time, and situation. She is verbal, conversational, and does not appear to be in any acute distress. VITAL SIGNS: Temperature 97.6, pulse 77, respirations 20, blood pressure 125/67, oxygen saturation 97% on room air. SKIN: Warm and dry. No rash. She is not diaphoretic. HEENT: Pupils equal, round, reactive to light and accommodation. Conjunctivae are pink. There is no JVP. CARDIOVASCULAR: Heart is regular. There is no murmur or rub. CHEST: The patient does have a prolonged expiratory phase, sounds of emphysema. Symmetrical, unlabored. ABDOMEN: Obese, soft. Bowel sounds are present. EXTREMITIES: No clubbing, cyanosis, or edema. PSYCHIATRIC: Bizarre affect and flat mood. DIAGNOSTICS: Lab values are as follow: Hematology obtained on 06/06/2017: WBCs are 10.7, hemoglobin is 13.0, hematocrit is 35.6, platelet count is 167,000. Chemistry obtained on 06/06/2017: Triglycerides are 202, cholesterol 115, LDL 58, VLDL 40, HDL is 40, TSH is 1.28, A1c is 8.5. IMPRESSION AND PLAN: 1. LEFT-SIDED PARESTHESIAS AND WEAKNESS. Uncertain of the exact etiology of this. MRI is unremarkable. Will obtain carotid echo and await records from [facility]. Will continue aspirin and statin therapy and follow. 2. BIPOLAR DISORDER. The patient does have a bizarre affect. The patient is unsure of her home medications, which is not a sign that the patient is taking these medications. 3. DIABETES MELLITUS TYPE 2. A1c is elevated. Will continue metformin as well as sliding scale coverage. 4. MORBID OBESITY WITH A BMI OF 48. Will encourage weight reduction. 5. HYPERTENSION. Will continue the patient's home medications. 6. TOBACCO DEPENDENCY CONTINUOUS. Spent 3 minutes discussing smoking cessation education. The patient declines any pharmacological intervention at this time. Will add a p.r.n. nicotine patch. DISPOSITION: The patient is a FULL CODE. Pending patient's symptomatology and diagnostic findings, will reevaluate in the a.m. Time spent on this followup including assessment, plan, physical examination, patient education, and family meeting is 35 minutes. DICTATING PHYSICIAN: MARYELLEN GERMAIN NP [id number] PHY#: [id number] ID: [id number] JOB#: [id number] ACCT: [id number] cc: >
--- NOTE | 2017-06-07 16:11 | RADIOLOGY REPORT (SQ) ---
EXAM DESCRIPTION: CAROTID DOPPLER COMPLETED DATE/TIME: 06/07/2017 4:00 pm REASON FOR STUDY: Left weakness COMPARISON: None. TECHNIQUE: Grayscale ultrasound, Doppler velocity and spectra, and color Doppler images acquired of the extra-cranial carotid and vertebral arteries. Images stored on PACS. LIMITATIONS: None. FINDINGS: RIGHT CAROTID CCA Velocities: Within normal limits. ICA Velocities Peak systolic 0.92 m/s. End diastolic 0.29 m/s. Proximal ICA/CCA peak systolic ratio 1.2. Spectra normal. No significant plaque. LEFT CAROTID CCA Velocities: Within normal limits. ICA Velocities Peak systolic 0.6 m/s. End diastolic 0.25 m/s. Proximal ICA/CCA peak systolic ratio 1.0. Spectra normal. No significant plaque. VERTEBRAL ARTERIES: Antegrade flow. Normal waveforms. SUBCLAVIAN ARTERIES: No finding. OTHER: No other significant finding. IMPRESSION: NO HEMODYNAMICALLY SIGNIFICANT STENOSIS. COMMENT: Quality ID #[id number]: Velocity criteria are extrapolated from the diameter data as defined by t he Society of Radiologists in Ultrasound Consensus Conference. Radiology 2003: 229; 340-346. TECHNICAL DOCUMENTATION: JOB ID: [id number] [employer]- All Rights Reserved
[2017-06-07] MEDS: METFORMIN HCL 500 MG TABLET PO SCH (17:19)
[2017-06-07] MEDS: GABAPENTIN 100 MG CAPSULE PO SCH ×2 (17:20→21:44)
[2017-06-07] MEDS: CYANOCOBALAMIN (VITAMIN B-12) 1,000 MCG TABLET PO SCH (17:20)
[2017-06-07] MEDS ORDERED: CYANOCOBALAMIN 1000 MG PO SCH (18:00)
[2017-06-07] MEDS ORDERED: (PENDING PHARMACY ID) (Metformin Hcl [Metformin Hcl] 1,000 MG) PO SCH (18:00)
--- NOTE | 2017-06-07 18:02 | XCELERA REPORT ---
[address] [address] Transthoracic Echocardiogram Report Name: MELISSA NAGEL Age: 47 yrs Gender: Female : 1970 Patient Status: Inpatient Patient Location: [address] [place] [address] Study Date: 06/07/2017 03:06 PM Height: 64 in Weight: 270 lb BSA: 2.2 m2 Procedure: A complete two-dimensional transthoracic echocardiogram was performed (2D, M-mode, spectral and color flow Doppler). The study was technically difficult with many images being suboptimal in quality. Reason For Study: tia hx pafib? Ordering Physician: MAUREEN HOU Performed By: Mindy Paz Interpretation Summary The study was technically difficult with many images being suboptimal in quality. The left ventricular ejection fraction is normal. There is borderline concentric left ventricular hypertrophy. The left ventricle is grossly normal size. Doppler measurements suggest impaired left ventricular relaxation, which is associated with grade I/IV or mild diastolic dysfunction Wall motion cannot be accurately commented on, but no definite regional wall motion abnormalities noted. The right ventricular systolic function is normal. The left atrial size is normal. The right atrium is normal in size There is a trace amount of mitral regurgitation There is no mitral valve stenosis. No aortic regurgitation is present. There is no aortic valve stenosis There is a trace or physiologic amount of tricuspid regurgitation Tricuspid regurgitation jet envelope not well defined to measure RV systolic pressure accurately. The aortic root is not well visualized but is probably normal size. The inferior vena cava was not visualized There is no pericardial effusion. No definite cardiac source of CVA/TIA noted on this particular trans- thoracic study. Consider LENA if clinically indicated. May consider mobile cardiac telemetry monitoring (MCT) for ruling out transient AFIB. MMode/2D Measurements & Calculations RVDd: 3.1 cm LVIDd: 4.9 cm FS: 30.8 % Ao root diam: 2.6 cm IVSd: 1.1 cm LVIDs: 3.4 cm EDV(Teich): 114.8 ml LVPWd: 1.1 cm ESV(Teich): 48.0 ml Ao root area: 5.2 cm2 EF(Teich): 58.2 % LA dimension: 3.3 cm Doppler Measurements & Calculations MV E max evaristo: MV P1/2t max evaristo: Ao V2 max: LV V1 max P.1 cm/sec 109.6 cm/sec 144.3 cm/sec 5.6 mmHg MV A max evaristo: MV P1/2t: 49.5 msec Ao max PG: LV V1 max: 65.2 cm/sec 8.3 mmHg 118.0 cm/sec MV E/A: 1.7 MVA(P1/2t): 4.4 cm2 MV dec slope: 648.3 cm/sec2 PA V2 max: 90.3 cm/sec PA max P.3 mmHg Left Ventricle The left ventricle is grossly normal size. There is borderline concentric left ventricular hypertrophy. The left ventricular ejection fraction is normal. Doppler measurements suggest impaired left ventricular relaxation, which is associated with grade I/IV or mild diastolic dysfunction. Wall motion cannot be accurately commented on, but no definite regional wall motion abnormalities noted. Right Ventricle The right ventricle is grossly normal size. There is normal right ventricular wall thickness. The right ventricular systolic function is normal. Atria The right atrium is normal in size. The left atrial size is normal. Interarterial septum not well visualized and not well dopplered. Cannot comment on ASD/PFO presence. Mitral Valve The mitral valve is grossly normal. There is no mitral valve stenosis. There is a trace amount of mitral regurgitation. Aortic Valve The aortic valve is not well visualized secondary to technical limitations. There is no aortic valve stenosis. No aortic regurgitation is present. Tricuspid Valve The tricuspid valve is not well visualized secondary to technical limitations. There is no tricuspid stenosis. There is a trace or physiologic amount of tricuspid regurgitation. Tricuspid regurgitation jet envelope not well defined to measure RV systolic pressure accurately. Pulmonic Valve The pulmonic valve is not well visualized. Great Vessels The aortic root is not well visualized but is probably normal size. The inferior vena cava was not visualized. Effusions There is no pericardial effusion. Incidental Findings No definite cardiac source of CVA/TIA noted on this particular trans- thoracic study. Consider LENA if clinically indicated. May consider mobile cardiac telemetry monitoring (MCT) for ruling out transient AFIB. : MAUREEN HOU > Leonel Recinos
[2017-06-08] MEDS: HEPARIN SOD (PORCINE) 5,000 UNIT/ML 1 ML SYRINGE SUBCUT SCH (05:34)
[2017-06-08] MEDS: GABAPENTIN 100 MG CAPSULE PO SCH (05:34)
--- NOTE | 2017-06-08 09:16 | DISCHARGE SUMMARY E ---
Discharge Summary NAME: MELISSA NAGEL : 1970 AGE: 47Y ADMITTED: 06/06/2017 DISCHARGED: 06/08/2017 CODE STATUS: FULL CODE. PRIMARY CARE PROVIDER: Dr. Anderson OUTPATIENT NEUROLOGIST: Dr. Delgadillo DISCHARGE DIAGNOSES: Includes: 1. Left-sided paresthesia, most likely complex migraine. 2. History of complex migraines. 3. Bipolar disorder. 4. Diabetes mellitus type 2. 5. Morbid obesity with a BMI of 48. 6. Hypertension. 7. Tobacco dependency, continuous with excessive consumption. DISCHARGE MEDICATIONS: Include: 1. Vitamin B6 100 mg p.o. daily. 2. 70/30 as directed. 3. Verapamil 120 mg p.o. daily. 4. Ultram 50 mg p.o. b.i.d. 5. Lyrica 75 mg p.o. daily. 6. Potassium citrate 10 mEq p.o. daily. 7. Metformin 1000 mg p.o. b.i.d. 8. Lisinopril 5 mg p.o. daily. 9. Linzess 145 mcg p.o. daily. 10. Novolog sliding scale coverage before meals and at bedtime. 11. Indomethacin 25 mg p.o. t.i.d. 12. Neurontin 100 mg p.o. t.i.d. 13. Multivitamin 1 tablet p.o. daily. 14. Zetia 10 mg p.o. daily. 15. Pristiq 100 mg p.o. daily. 16. Vitamin B12 1000 mg p.o. b.i.d. 17. BuSpar 10 mg p.o. daily. 18. Atorvastatin 25 mg p.o. q. hour of sleep. 19. Aspirin 325 mg p.o. daily. 20. Vitamin C 500 mg p.o. daily. 21. Proventil 2.5 mg inhalation q. 4 hours p.r.n. DIET: Heart healthy. ACTIVITY: Recommend 45 minutes of cardiovascular activity most days of the week. DIAGNOSTICS: Lab values are as follows: Hematology obtained on 06/06/2017: WBCs are 10.7, hemoglobin is 13.0, hematocrit is 38.5, platelet count is 168,000. Coagulation obtained on 06/06/2017: PT is 12.8, INR is 0.9. Chemistry obtained on 06/08/2017: Sodium is 138, potassium 4.2, chloride is 104, carbon dioxide 27, BUN 7, creatinine is 0.66, glucose 115. A1C is 8.5, calcium is 9.7, bilirubin is 0.5. AST 26, ALT is 37, Alk phos 96, CK 74, CK-MB is 0.49, troponin is 0.012. Total protein 6.4, albumin 3.8, triglycerides are 202, cholesterol 115. LDL 58, VLDL was 40, HDL was 40. TSH is 1.28. Chest x-ray obtained on 06/06/2017 reveals no acute radiographic finding of the chest. EKG obtained on 06/06/[address] Head [address] obtained on 06/06/[address] reveals [address] normal brain CT without contrast. Carotid Doppler obtained on 06/06/2017 reveals no hemodynamically significant stenosis. Echocardiogram obtained on 06/07/2017 reveals mild diastolic dysfunction. Head MRI obtained on 06/07/2017 reveals normal MRI of the brain without gadolinium. PHYSICAL EXAMINATION: GENERAL: On examination, the patient is a morbidly obese 47-year-old female who is awake, alert. She is oriented to person, place, time, and situation. She is verbal, conversational, has a bizarre affect, does not appear to be distressed. VITAL SIGNS: Temperature is 97.7, pulse 78, respirations 16, blood pressure is 99/61, oxygen saturation is 94% on room air. SKIN: Warm and dry. No rash. She is not diaphoretic. HEENT: Pupils equal, round, and reactive to light and accommodation. Conjunctiva is pink. No JVP. CARDIOVASCULAR SYSTEM: Heart is regular. There is no murmur or rub. CHEST: Diminished, symmetrical, unlabored. ABDOMEN: Soft, nontender, nondistended. BACK: No CVA tenderness or sacral edema. EXTREMITIES: No clubbing, cyanosis, edema. PSYCHIATRIC: Once again, very odd unusual affect. HISTORY OF PRESENT ILLNESS: The patient is a 47-year-old female with a past medical history of diabetes, hypertension, and bipolar depression. The patient presented to the emergency department with a chief complaint of 24 hours of left-sided weakness. The patient denied any recent changes in medication, headache. Denied any heart palpitation, nausea, vomiting, or confusion. The patient admitted to exceptional social stressors while undergoing a separation and what sounds like a possible assault charge against herself on her . Given the patient's reported history of TIAs, she was referred to the hospitalist for observation and management. The patient has been seen numerous times at [facility] for similar complaints and the patient is actually followed by Dr. Delgadillo of Neurology. The patient has been placed on chronic indomethacin, aspirin, as well as verapamil for the symptoms, which could be associated with complex migraine. The patient does not have any imaging to suggest actual cerebrovascular disease. HOSPITAL COURSE: The patient was observed in [facility]. The patient underwent MRI and findings were unremarkable. The patient did have a carotid Doppler as well as an echocardiogram. The patient's echocardiogram did reveal a mild diastolic dysfunction as well as a carotid Doppler that was unremarkable. The patient was continued on aspirin, but dose was maximized to 325 as well as the statin therapy. The patient did not have any weakness on examination, but reported paresthesias. The patient appears stable for discharge. The patient's, who was initially hypertensive, blood pressure improved with the addition of her home medication. The patient did receive a significant amount of tobacco cessation education given her heavy tobacco use. DISCHARGE PLANNING: The patient is to follow up with Dr. Delgadillo within 1-2 weeks for hospital followup. Time spent on this discharge including assessment and plan, physical examination, patient education, family meeting, and review of records is 25 minutes. DICTATING PHYSICIAN: MARYELLEN GERMAIN NP [id number] PHY#: [id number] ID: [id number] JOB#: [id number] ACCT: [id number] cc:MAUREEN HOU M.D. MARYELLEN GERMAIN NP >
[2017-06-08] MEDS: CYANOCOBALAMIN (VITAMIN B-12) 1,000 MCG TABLET PO SCH (09:51)
[2017-06-08] MEDS: ASPIRIN 325 MG TABLET, ENT COATED PO SCH (09:51)
[2017-06-08] MEDS: METFORMIN HCL 500 MG TABLET PO SCH (09:51)
[2017-06-08] MEDS ORDERED: PYRIDOXINE HCL 50 MG TABLET PO SCH (10:00)
[2017-06-08] MEDS ORDERED: [UNRECOGNIZED DRUG - OTHER] PO SCH (10:00)
[2017-06-08] MEDS ORDERED: PREGABALIN 75 MG CAPSULE PO SCH (10:00)
[2017-06-08] MEDS ORDERED: EZETIMIBE 10 MG TABLET PO SCH (10:00)
[2017-06-08] MEDS ORDERED: VITAMIN B6 100 MG PO SCH (10:00)
[2017-06-08] MEDS ORDERED: BUSPIRONE HCL 10 MG TABLET PO SCH (10:00)
[2017-06-08] MEDS ORDERED: ASCORBIC ACID 500 MG TABLET PO SCH (10:00)
[2017-06-08] MEDS ORDERED: LISINOPRIL 5 MG TABLET PO SCH (10:00)
[2017-06-08] MEDS ORDERED: POTASSIUM CHLORIDE 10 MEQ TABLET.SA PO SCH (10:00)
[2017-06-08] MEDS ORDERED: MULTIVIT-STRESS FORMULA/ZINC TABLET PO SCH (10:00)
[2017-06-08] MEDS ORDERED: (PENDING PHARMACY ID) (Ascorbic Acid [Vitamin C] 500 MG) PO SCH (10:00)
[2017-06-08] MEDS ORDERED: MULTIVIT IRON MINER PO SCH (10:00)
[2017-06-08] MEDS ORDERED: (PENDING PHARMACY ID) (Linaclotide 145 MCG) PO SCH (10:00)
[2017-06-08] MEDS ORDERED: DESVENLAFAXINE SUCCINATE 100 MG PO SCH (10:00)
[2017-06-08] MEDS ORDERED: BUSPIRONE HCL 10 MG PO SCH (10:00)
[2017-06-08] MEDS ORDERED: (PENDING PHARMACY ID) (Potassium Citrate [Urocit-K] 10 MEQ) PO SCH (10:00)
[2017-06-08] MEDS ORDERED: FOLIC ACID PO SCH (10:00)
[2017-06-08] MEDS: VERAPAMIL HCL 120 MG TABLET.SA PO SCH (11:02)
[2017-06-08 11:51] VITALS: BP 119/60
== END 2017-06-08 13:23 | disposition home or self-care (01) ==
LOC: ER 16:34 → EH 20:16 → 3W 22:16
PROVIDERS: ADMIT Internal Medicine; ATTEND Internal Medicine
PROC: 3E0234Z Introduction of Serum, Toxoid and Vaccine into Muscle, Percutaneous Approach (ICD-10-PCS; principal; 2017-06-08)
DX: R20.2 Paresthesia of skin (principal); Z86.69 Personal history of other diseases of the nervous system and sense organs; F31.9 Bipolar disorder, unspecified; E11.9 Type 2 diabetes mellitus without complications; E66.01 Morbid (severe) obesity due to excess calories; R53.1 Weakness; I10 Essential (primary) hypertension; R20.0 Anesthesia of skin; I51.89 Other ill-defined heart diseases; F17.210 Nicotine dependence, cigarettes, uncomplicated; R44.8 Other symptoms and signs involving general sensations and perceptions; I69.354 Hemiplegia and hemiparesis following cerebral infarction affecting left non-dominant side; R47.89 Other speech disturbances; I25.10 Atherosclerotic heart disease of native coronary artery without angina pectoris; J45.909 Unspecified asthma, uncomplicated; Z68.42 Body mass index [BMI] 45.0-49.9, adult; Z63.5 Disruption of family by separation and divorce; Z79.1 Long term (current) use of non-steroidal anti-inflammatories (NSAID); Z23 Encounter for immunization; Z79.4 Long term (current) use of insulin
CPT/HCPCS: 93005; 99285; 36415 ×2; 82553; 82962 ×3; 82550; 84443; 85025; 85610; 85730; 80053; 84484; 83036; 80061; 93306; 93880; 70551; 71010; 70450; 90686; 93010; 97163; 97167; A9270 ×19; J1644 ×2; J3490 ×2; G8978; G8979; G8987; G8988; G8989; J1815

== ENCOUNTER 2017-08-01 14:24 | Emergency (ER) | payer MEDICARE, MEDICAID ==
--- NOTE | 2017-08-01 16:09 | ER Document Report ---
ED Medical Screen (RME) - General Chief Complaint: Breathing Difficulty Stated Complaint: COUGH,CONGESTION,CHILLS Time Seen by Provider: 08/01/17 16:08 Notes: cp, cough, sob, vomiting. weak TRAVEL OUTSIDE OF THE [place] IN LAST 30 DAYS: No - Related Data Allergies/Adverse Reactions: prednisone [Prednisone] Allergy (Severe, Verified 08/01/17 14:25) Hives red dye [Red Dye] Allergy (Severe, Verified 08/01/17 14:25) Hives Past Medical History - Social History Frequency of alcohol use: None Drug Abuse: None - Past Medical History Cardiac Medical History: Reports: Hx Coronary Artery Disease, Hx Hypercholesterolemia, Hx Hypertension - on meds Denies: Hx Heart Attack Pulmonary Medical History: Reports: Hx Asthma - inhalers,neb, Hx Bronchitis - hx of, Hx Pneumonia - hx of Denies: Hx COPD, Hx Tuberculosis Neurological Medical History: Reports: Hx Cerebrovascular Accident - 2011, L side seakness TIA x7 (most recent 2015). Denies: Hx Seizures Endocrine Medical History: Reports: Hx Diabetes Mellitus Type 2 Renal/ Medical History: Denies: Hx Peritoneal Dialysis Musculoskeltal Medical History: Reports Hx Arthritis - generalized Psychiatric Medical History: Reports: Hx Bipolar Disorder, Hx Depression - anxiety Past Surgical History: Reports: Hx Oral Surgery, Hx Orthopedic Surgery - R ankle , Hx Tonsillectomy - Immunizations Hx Diphtheria, Pertussis, Tetanus Vaccination: No History of Influenza Vaccine for 03/2017 - 08/2017 Season: No Physical Exam - Vital signs Vitals: Temp Pulse Resp BP Pulse Ox 97.7 F 97 20 119/73 97 08/01/17 14:29 08/01/17 14:29 08/01/17 14:29 08/01/17 14:29 08/01/17 14:29 Course - Vital Signs Vital signs: Temp Pulse Resp BP Pulse Ox 97.7 F 97 20 119/73 97 08/01/17 14:29 08/01/17 14:29 08/01/17 14:29 08/01/17 14:29 08/01/17 14:29
[2017-08-01 16:48] LABS: ABSOLUTE BASOPHILS # (AUTO) 0.1 10^3/uL (0.0-0.2); ABSOLUTE EOSINOPHILS # (AUTO) 0.2 10^3/uL (0.0-0.6); ABSOLUTE LYMPHOCYTES (AUTO) 2.2 10^3/uL (0.5-4.7); ABSOLUTE MONOCYTES (AUTO) 0.4 10^3/uL (0.1-1.4); ABSOLUTE NEUT (AUTO) 7.3 10^3/uL (1.7-8.2); BASOPHILS % (AUTO) 0.6 % (0-2); EOSINOPHILS % (AUTO) 2.1 % (0-6); HEMOGLOBIN 13.1 g/dL (12.0-15.5); LYMPHOCYTES % (AUTO) 21.7 % (13-45); MEAN CORPUSCULAR HEMOGLOBIN 31.4 pg (27.0-33.4); MEAN CORPUSCULAR HGB CONC 33.7 g/dL (32.0-36.0); MEAN CORPUSCULAR VOLUME 93 fl (80-97); MONOCYTES % (AUTO) 4.1 % (3-13); PLATELET COUNT 173 10^3/uL (150-450); RED BLOOD COUNT 4.18 10^6/uL (3.72-5.28); RED CELL DISTRIBUTION WIDTH 13.4 % (11.5-14.0); SEGMENTED NEUTROPHILS % (AUTO) 71.5 % (42-78); TOTAL CELLS COUNTED % (AUTO) 100 %; WHITE BLOOD COUNT 10.2 10^3/uL (4.0-10.5)
[2017-08-01 17:04] LABS: ALANINE AMINOTRANSFERASE 27 U/L (9-52); ALBUMIN 3.9 g/dL (3.5-5.0); ALKALINE PHOSPHATASE 107 U/L (38-126); ANION GAP 10 (5-19); ASPARTATE AMINO TRANSFERASE 15 U/L (14-36); BILIRUBIN,TOTAL 0.3 mg/dL (0.2-1.3); BLOOD UREA NITROGEN 9 mg/dL (7-20); CALCIUM 8.8 mg/dL (8.4-10.2); CARBON DIOXIDE 27 mmol/L (22-30); CHLORIDE 104 mmol/L (98-107); GLUCOSE 236 mg/dL (75-110); POTASSIUM 4.5 mmol/L (3.6-5.0); SODIUM 141.4 mmol/L (137-145); TOTAL PROTEIN 6.2 g/dL (6.3-8.2)
--- NOTE | 2017-08-01 17:08 | RADIOLOGY REPORT (SQ) ---
EXAM DESCRIPTION: CHEST PA/LAT COMPLETED DATE/TIME: 08/01/2017 4:59 pm REASON FOR STUDY: cough COMPARISON: 02/19/2017. EXAM PARAMETERS: NUMBER OF VIEWS: two views TECHNIQUE: Digital Frontal and Lateral radiographic views of the chest acquired. RADIATION DOSE: NA LIMITATIONS: none FINDINGS: LUNGS AND PLEURA: No acute infiltrates or effusions. MEDIASTINUM AND HILAR STRUCTURES: No masses or contour abnormalities. HEART AND VASCULAR STRUCTURES: The heart is normal with normal pulmonary vasculature. BONES: No acute findings. HARDWARE: None in the chest. OTHER: No other significant finding. IMPRESSION: NO ACUTE DISEASE. TECHNICAL DOCUMENTATION: JOB ID: [id number] [employer]- All Rights Reserved
--- NOTE | 2017-08-01 17:28 | ER Document Report ---
ED General - General Chief Complaint: Breathing Difficulty Stated Complaint: COUGH,CONGESTION,CHILLS Time Seen by Provider: 08/01/17 16:08 Mode of Arrival: Ambulatory Information source: Patient Notes: 47-year-old diabetic female presents with complaints of 3 day duration of productive cough shortness of breath. Patient admits to intermittent fevers denies any chills. Patient denies any nausea vomiting. Patient notes that the sputum is a thick brownish green color TRAVEL OUTSIDE OF THE [place] IN LAST 30 DAYS: No - HPI Onset: Other Onset/Duration: Persistent Quality of pain: Achy Severity: Mild Pain Level: 1 Associated symptoms: Productive cough, Nausea, Vomiting, Shortness of breath Exacerbated by: Denies Relieved by: Denies Similar symptoms previously: No Recently seen / treated by doctor: No - Related Data Allergies/Adverse Reactions: prednisone [Prednisone] Allergy (Severe, Verified 08/01/17 14:25) Hives red dye [Red Dye] Allergy (Severe, Verified 08/01/17 14:25) Hives Past Medical History - Social History Smoking Status: Current Every Day Smoker Cigarette use (# per day): Yes Chew tobacco use (# tins/day): No Smoking Education Provided: No Frequency of alcohol use: None Drug Abuse: None Family History: DM Patient has suicidal ideation: No Patient has homicidal ideation: No - Past Medical History Cardiac Medical History: Reports: Hx Coronary Artery Disease, Hx Hypercholesterolemia, Hx Hypertension - on meds Denies: Hx Heart Attack Pulmonary Medical History: Reports: Hx Asthma - inhalers,neb, Hx Bronchitis - hx of, Hx Pneumonia - hx of Denies: Hx COPD, Hx Tuberculosis Neurological Medical History: Reports: Hx Cerebrovascular Accident - 2011, L side seakness TIA x7 (most recent 2016). Denies: Hx Seizures Endocrine Medical History: Reports: Hx Diabetes Mellitus Type 2 Renal/ Medical History: Denies: Hx Peritoneal Dialysis Musculoskeltal Medical History: Reports Hx Arthritis - generalized Psychiatric Medical History: Reports: Hx Bipolar Disorder, Hx Depression - anxiety Past Surgical History: Reports: Hx Oral Surgery, Hx Orthopedic Surgery - R ankle , Hx Tonsillectomy - Immunizations Hx Diphtheria, Pertussis, Tetanus Vaccination: No Hx Pneumococcal Vaccination: 03/22/14 Review of Systems - Review of Systems Notes: REVIEW OF SYSTEMS: CONSTITUTIONAL : Admits to fever EENT: Denies eye, ear, throat, or mouth pain or symptoms. Denies nasal or sinus congestion or discharge. Denies throat, tongue, or mouth swelling or difficulty swallowing. CARDIOVASCULAR: Denies chest pain. Denies palpitations or racing or irregular heart beat. Denies ankle edema. RESPIRATORY: Admits to productive cough GASTROINTESTINAL: Admits nausea vomiting GENITOURINARY: Denies difficulty urinating, painful urination, burning, frequency, blood in urine, or discharge. FEMALE GENITOURINARY: Denies vaginal bleeding, heavy or abnormal periods, irregular periods. Denies vaginal discharge or odor. MUSCULOSKELETAL: Denies back or neck pain or stiffness. Denies joint pain or swelling. SKIN: Denies rash, lesions or sores. HEMATOLOGIC : Denies easy bruising or bleeding. LYMPHATIC: Denies swollen, enlarged glands. NEUROLOGICAL: Denies confusion or altered mental status. Denies passing out or loss of consciousness. Denies dizziness or lightheadedness. Denies headache. Denies weakness or paralysis or loss of use of either side. Denies problems with gait or speech. Denies sensory loss, numbness, or tingling. Denies seizures. PSYCHIATRIC: Denies anxiety or stress. Denies depression, suicidal ideation, or homicidal ideation. ALL OTHER SYSTEMS REVIEWED AND NEGATIVE. PHYSICAL EXAMINATION: GENERAL: Well-appearing, well-nourished and in no acute distress. HEAD: Atraumatic, normocephalic. EYES: Pupils equal round and reactive to light, extraocular movements intact, conjunctiva are normal. ENT: Nares patent, oropharynx clear without exudates. Moist mucous membranes. NECK: Normal range of motion, supple without lymphadenopathy LUNGS: Breath sounds clear to auscultation bilaterally and equal. No wheezes rales or rhonchi. No respiratory distress HEART: Regular rate and rhythm without murmurs ABDOMEN: Soft, nontender, nondistended abdomen. No guarding, no rebound. No masses appreciated. Female : deferred Musculoskeletal: Normal range of motion, no pitting or edema. No cyanosis. NEUROLOGICAL: Cranial nerves grossly intact. Normal speech, normal gait. Normal sensory, motor exams PSYCH: Normal mood, normal affect. SKIN: Warm, Dry, normal turgor, no rashes or lesions noted. Dictation was performed using [employer] voice recognition software Physical Exam - Vital signs Vitals: Temp Pulse Resp BP Pulse Ox 97.7 F 97 20 119/73 97 02/19/18 14:29 08/01/17 14:29 08/01/17 14:29 08/01/17 14:29 08/01/17 14:29 Course - Re-evaluation Re-evalutation: 08/01/17 23:00 Patient on evaluation is noted intermittent hacking cough noted, patient has had no apneic episodes or respiratory distress, given hx of diabetes i will treat the patient with antibiotics and nausea control. Patient states she feels well is happy with this plan After performing a Medical Screening Examination, I estimate there is LOW risk for ACUTE CORONARY SYNDROME, PULMONARY EMBOLI, RESPIRATORY FAILURE, SEPSIS OR MENINGITIS, thus I consider the discharge disposition reasonable. I have reevaluated this patient multiple times and no significant life threatening changes are noted. The patient and I have discussed the diagnosis and risks, and we agree with discharging home with close follow-up. We also discussed returning to the Emergency Department immediately if new or worsening symptoms occur. We have discussed the symptoms which are most concerning (e.g., changing or worsening pain, trouble swallowing or breathing, neck stiffness, fever) that necessitate immediate return. - Vital Signs Vital signs: Temp Pulse Resp BP Pulse Ox 98.0 F 85 16 105/63 96 08/01/17 17:57 08/01/17 17:57 08/01/17 17:57 08/01/17 17:57 08/01/17 17:57 - Laboratory Result Diagrams: 08/01/17 16:30 08/01/17 16:30 Laboratory results interpreted by me: 08/01/17 16:30 Glucose 236 H Total Protein 6.2 L Discharge - Discharge Clinical Impression: Pneumonia Qualifiers: Pneumonia type: due to unspecified organism Laterality: left Lung location: upper lobe of lung Qualified Code(s): J18.1 - Lobar pneumonia, unspecified organism Diabetes Qualifiers: Diabetes mellitus type: type 2 Diabetes mellitus complication status: with unspecified complications Diabetes mellitus buttermaker continuous churn insulin use: without buttermaker continuous churn use Qualified Code(s): E11.8 - Type 2 diabetes mellitus with unspecified complications Nausea & vomiting Qualifiers: Vomiting type: unspecified Vomiting Intractability: non-intractable Qualified Code(s): R11.2 - Nausea with vomiting, unspecified Condition: Stable Disposition: HOME, SELF-CARE Instructions: Pneumonia ([facility]) Additional Instructions: Follow up with your physician tomorrow for further care or return to the ED IMMEDIATELY if symptoms worsen or new concerns occur. If you cannot afford to follow up with your primary care physician a list of low cost clinics have been provided at the end of your discharge papers as well. Prescriptions: Levofloxacin [Levaquin 750 mg Tablet] 750 mg PO DAILY #4 tablet Ondansetron [Zofran Odt 4 mg Tablet] 1 - 2 tab PO Q4H PRN #15 tab.rapdis PRN Reason: For Nausea/Vomiting Referrals: MARYELLEN ZARATE MD [Primary Care Provider] - Follow up as needed
[2017-08-01] MEDS ORDERED: LEVOFLOXACIN 750 MG TABLET PO ONE (17:49)
[2017-08-01 17:59] VITALS: BP 105/63
--- NOTE | 2017-08-01 18:08 | EKG REPORT ---
SEVERITY:- OTHERWISE NORMAL ECG - SINUS RHYTHM RIGHT AXIS DEVIATION : Confirmed by: Regulo Chavira MD 01-Aug-2017 18:06:44
== END 2017-08-01 17:57 | disposition home or self-care (01) ==
LOC: ER 14:24
DX: J18.1 Lobar pneumonia, unspecified organism (principal); E11.8 Type 2 diabetes mellitus with unspecified complications; R11.2 Nausea with vomiting, unspecified; R06.02 Shortness of breath; R05 Cough; R09.81 Nasal congestion; R50.9 Fever, unspecified; F17.210 Nicotine dependence, cigarettes, uncomplicated
CPT/HCPCS: 93005; 99285; 36415; 85025; 80053; 84484; 71046; 93010; A9270

== ENCOUNTER 2017-10-08 21:18 | Emergency (ER) | payer MEDICARE, MEDICAID ==
[2017-10-08] MEDS ORDERED: MORPHINE SULFATE 10 MG/ML INJ IV ONE (22:42)
[2017-10-08] MEDS ORDERED: ONDANSETRON HCL INJ/PF 4 MG/2 ML SDV IV ONE (22:42)
[2017-10-08] MEDS ORDERED: ASPIRIN 81 MG TABLET, CHEWABLE PO ONE (22:42)
--- NOTE | 2017-10-08 22:45 | ER Document Report ---
ED General - General Chief Complaint: Chest Pain Stated Complaint: CHEST PAIN Time Seen by Provider: 10/08/17 22:30 Notes: Patient is a 47-year-old female comes emergency department for chief complaint of sharp pain in her left side, pain happens when she takes deep breaths, coughs , or moves. Pain started yesterday, she started having a productive cough with green sputum yesterday. She also complains of nasal congestion and irritation in her throat. She states that when she does not move, take deep breaths, or cough she does not have any pain. She denies dizziness, nausea or vomiting, or fever. Past medical history includes morbid obesity, type 2 diabetes on insulin pump, hypertension, smoking, TIA, bipolar, depression. TRAVEL OUTSIDE OF THE [place] IN LAST 30 DAYS: No - Related Data Allergies/Adverse Reactions: prednisone [Prednisone] Allergy (Severe, Verified 08/01/17 14:25) Hives red dye [Red Dye] Allergy (Severe, Verified 08/01/17 14:25) Hives Past Medical History - General Information source: Patient - Social History Smoking Status: Current Every Day Smoker Smoking Education Provided: Yes - <3 min Frequency of alcohol use: None Drug Abuse: None Lives with: Family Family History: DM - Past Medical History Cardiac Medical History: Reports: Hx Coronary Artery Disease, Hx Hypercholesterolemia, Hx Hypertension - on meds Denies: Hx Heart Attack Pulmonary Medical History: Reports: Hx Asthma - inhalers,neb, Hx Bronchitis - hx of, Hx Pneumonia - hx of Denies: Hx COPD, Hx Tuberculosis Neurological Medical History: Reports: Hx Cerebrovascular Accident - 2011, L side seakness TIA x7 (most recent 2015). Denies: Hx Seizures Endocrine Medical History: Reports: Hx Diabetes Mellitus Type 2 Renal/ Medical History: Denies: Hx Peritoneal Dialysis Musculoskeltal Medical History: Reports Hx Arthritis - generalized Psychiatric Medical History: Reports: Hx Bipolar Disorder, Hx Depression - anxiety Past Surgical History: Reports: Hx Oral Surgery, Hx Orthopedic Surgery - R ankle , Hx Tonsillectomy - Immunizations Hx Diphtheria, Pertussis, Tetanus Vaccination: No Hx Pneumococcal Vaccination: 03/22/14 Review of Systems - Review of Systems Constitutional: See HPI EENT: See HPI Cardiovascular: No symptoms reported Respiratory: See HPI Gastrointestinal: No symptoms reported Genitourinary: No symptoms reported Female Genitourinary: No symptoms reported Musculoskeletal: No symptoms reported Skin: No symptoms reported Hematologic/Lymphatic: No symptoms reported Neurological/Psychological: No symptoms reported Physical Exam - Vital signs Vitals: Temp Pulse Resp BP Pulse Ox 98.6 F 106 H 22 H 118/84 95 10/08/17 21:38 10/08/17 21:38 10/08/17 21:38 10/08/17 21:38 10/08/17 21:38 - General General appearance: Appears well, Alert In distress: None - HEENT Head: Normocephalic, Atraumatic Eyes: Normal Conjunctiva: Normal Eyelashes: Normal Pupils: PERRL Nasal: Normal Mouth/Lips: Normal Mucous membranes: Normal Pharynx: Normal Neck: Normal - Respiratory Respiratory status: No respiratory distress. No: Respiratory distress, Labored Chest status: Tender - Tender over the left chest wall in approximately ribs 4 through 6, reproducible, no crepitus, ecchymosis, erythema, or other abnormality noted Breath sounds: Productive cough - Patient coughed up some greenish sputum on evaluation - Cardiovascular Rhythm: Regular. No: Tachycardia Heart sounds: Normal auscultation, S1 appreciated, S2 appreciated - Abdominal Inspection: Normal Tenderness: Nontender. No: Tender, Guarding - Back Back: Normal, Nontender. No: Tender - Extremities General upper extremity: Normal inspection, Nontender, Normal ROM, Normal strength General lower extremity: Normal inspection, Nontender, Normal ROM, Normal strength - Neurological Neuro grossly intact: Yes Cognition: Normal Orientation: AAOx4 [place] Coma Scale Eye Opening: Spontaneous [place] Coma Scale Verbal: Oriented [place] Coma Scale Motor: Obeys Commands [place] Coma Scale Total: 15 Speech: Normal Cranial nerves: Normal Cerebellar coordination: Normal Motor strength normal: LUE, RUE, LLE, RLE Sensory: Normal - Skin Skin Temperature: Warm Skin Moisture: Dry Skin Color: Normal Course - Re-evaluation Re-evalutation: Patient is well-appearing except for productive cough. Symptoms have been going on for over 48 hours. Cardiac enzymes negative, CBC is not remarkable, chemistry unremarkable, chest x-ray does not show pneumonia. Patient coughed up more green sputum on reevaluation. Patient was given dexamethasone for her chest wall pain and cough, apparently she can take this despite being allergic to prednisone per her report. Because of productive cough after discussion patient will be treated with doxycycline for possible developing underlying sinus or pneumonia infections. Discussed follow-up and return precautions with patient and family, they state satisfaction and agreement with plan. - Vital Signs Vital signs: Temp Pulse Resp BP Pulse Ox 97.7 F 106 H 16 119/81 97 10/09/17 01:27 10/08/17 21:38 10/09/17 01:01 10/09/17 01:01 10/09/17 01:01 - Laboratory Result Diagrams: 10/08/17 23:38 10/08/17 23:38 Laboratory results interpreted by me: 10/08/17 10/08/17 23:38 23:38 WBC 10.6 H Glucose 228 H Discharge - Discharge Clinical Impression: Productive cough, Chest wall pain, Tobacco dependency Condition: Stable Disposition: HOME, SELF-CARE Additional Instructions: Your workup at this time does not show pneumonia or any concerning abnormalities , however because of the productive cough we are covering you to prevent development of pneumonia with doxycycline. You have been treated with dexamethasone to help your rib and symptoms as well, take Tessalon for cough during the day if needed, take the syrup at night if needed. Stop smoking. Follow-up with primary care for additional evaluation and management. Return for any concerning symptoms including difficulty breathing, spiking fever, or any other concerning or worsening symptoms. Prescriptions: Hydrocodone Bit/Homatropine [Hycodan Syrup 5-1.5 mg/5 ml Ud Cup] 5 ml PO Q4HP PRN #120 ml PRN Reason: Benzonatate [Tessalon Perle 100 mg Capsule] 100 mg PO Q8HP PRN #20 cap PRN Reason: Doxycycline Hyclate 100 mg PO BID #14 capsule Forms: Smoking Cessation Education Referrals: MARYELLEN ZARATE MD [Primary Care Provider] - Follow up as needed
[2017-10-08] MEDS ORDERED: OXYCODONE-ACETAMINOPHEN 5-325 MG TABLET PO ONE (22:49)
--- NOTE | 2017-10-09 00:06 | RADIOLOGY REPORT (SQ) ---
EXAM DESCRIPTION: CHEST SINGLE VIEW CLINICAL HISTORY: 47 years Female, chest pain COMPARISON: 2.19.18. NUMBER OF VIEWS/TECHNIQUE: 1/AP FINDINGS: Adequate lung volume, clear parenchyma, normal cardiac silhouette, and intact bony thorax. IMPRESSION: No acute cardiopulmonary findings.
[2017-10-09 00:07] LABS: ABSOLUTE BASOPHILS # (AUTO) 0.1 10^3/uL (0.0-0.2); ABSOLUTE EOSINOPHILS # (AUTO) 0.4 10^3/uL (0.0-0.6); ABSOLUTE MONOCYTES (AUTO) 0.5 10^3/uL (0.1-1.4); ABSOLUTE NEUT (AUTO) 6.6 10^3/uL (1.7-8.2); BASOPHILS % (AUTO) 0.7 % (0-2); EOSINOPHILS % (AUTO) 3.6 % (0-6); HEMATOCRIT 41.9 % (36.0-47.0); HEMOGLOBIN 14.2 g/dL (12.0-15.5); MEAN CORPUSCULAR HEMOGLOBIN 31.4 pg (27.0-33.4); MEAN CORPUSCULAR HGB CONC 33.9 g/dL (32.0-36.0); MEAN CORPUSCULAR VOLUME 93 fl (80-97); MONOCYTES % (AUTO) 5.2 % (3-13); PLATELET COUNT 163 10^3/uL (150-450); RED BLOOD COUNT 4.52 10^6/uL (3.72-5.28); RED CELL DISTRIBUTION WIDTH 13.7 % (11.5-14.0); SEGMENTED NEUTROPHILS % (AUTO) 62.5 % (42-78); TOTAL CELLS COUNTED % (AUTO) 100 %; WHITE BLOOD COUNT 10.6 10^3/uL (4.0-10.5)
[2017-10-09 00:20] LABS: ALANINE AMINOTRANSFERASE 21 U/L (9-52); ALBUMIN 4.1 g/dL (3.5-5.0); ALKALINE PHOSPHATASE 109 U/L (38-126); ANION GAP 12 (5-19); ASPARTATE AMINO TRANSFERASE 21 U/L (14-36); BILIRUBIN,DIRECT 0.2 mg/dL (0.0-0.4); BILIRUBIN,TOTAL 0.2 mg/dL (0.2-1.3); BLOOD UREA NITROGEN 11 mg/dL (7-20); CALCIUM 9.4 mg/dL (8.4-10.2); CARBON DIOXIDE 27 mmol/L (22-30); CHLORIDE 102 mmol/L (98-107); CREATINE KINASE 69 U/L (30-135); GLUCOSE 228 mg/dL (75-110); POTASSIUM 4.3 mmol/L (3.6-5.0); SODIUM 141.1 mmol/L (137-145); TOTAL PROTEIN 6.9 g/dL (6.3-8.2)
[2017-10-09 00:35] LABS: TROPONIN I < 0.012 ng/mL
[2017-10-09] MEDS ORDERED: DOXYCYCLINE HYCLATE 100 MG TABLET PO ONE (00:57)
[2017-10-09] MEDS ORDERED: DEXAMETHASONE SOD PHOS INJ 10 MG/1 ML VIAL IM ONE (00:57)
[2017-10-09 01:14] VITALS: BP 119/81
--- NOTE | 2017-10-09 08:09 | EKG REPORT ---
SEVERITY:- BORDERLINE ECG - SINUS RHYTHM RIGHT AXIS DEVIATION BORDERLINE T ABNORMALITIES, ANTERIOR LEADS : Confirmed by: Regulo Chavira MD 09-Oct-2017 08:08:41
== END 2017-10-09 01:30 | disposition home or self-care (01) ==
LOC: ER 21:18
DX: R05 Cough (principal); R07.89 Other chest pain; F17.200 Nicotine dependence, unspecified, uncomplicated; J45.909 Unspecified asthma, uncomplicated; R09.81 Nasal congestion; R09.89 Other specified symptoms and signs involving the circulatory and respiratory systems; I25.10 Atherosclerotic heart disease of native coronary artery without angina pectoris; I10 Essential (primary) hypertension; E11.9 Type 2 diabetes mellitus without complications; Z96.41 Presence of insulin pump (external) (internal); Z88.8 Allergy status to other drugs, medicaments and biological substances; Z91.048 Other nonmedicinal substance allergy status; Z87.01 Personal history of pneumonia (recurrent)
CPT/HCPCS: 93005; 99285; 96372; 36415; 82553; 82550; 85025; 80053; 84484; 71045; 93010; A9270 ×3; J1100

== ENCOUNTER → 2018-06-14 | Outpatient (CLI) | payer MEDICARE, MEDICAID ==
--- NOTE | 2018-06-14 11:03 | WOMENS IMAGING REPORT ---
EXAM DESCRIPTION: 3D SCREENING MAMMO BILAT COMPLETED DATE/TIME: 06/14/2018 10:39 am REASON FOR STUDY: SCREENING MAMMO Z12.31 ENCNTR SCREEN MAMMOGRAM FOR MALIGNANT NEOPLASM OF SLAVA COMPARISON: 2015, 2016 TECHNIQUE: Standard craniocaudal and mediolateral oblique views of each breast recorded using digita l acquisition and breast tomosynthesis. LIMITATIONS: None. FINDINGS: No masses, calcifications or architectural distortion. No areas of suspicion. Read with the assistance of CAD. .[facility] - R2 Cenova Version 1.3 .[facility] - R2 Cenova Version 1.3 .[facility] - R2 Cenova Version 2.4 .[facility] - R2 Cenova Version 2.4 .[facility] - R2 [employer] Version 9.2 IMPRESSION: NORMAL MAMMOGRAM. BIRADS 1. BREAST DENSITY: a. The breasts are almost entirely fatty. BIRAD: 1 NEGATIVE RECOMMENDATION: ROUTINE SCREENING COMMENT: The patient has been notified of the results by letter per SA requirements. Additional no tification policies are in place for contacting patient with suspicious or incomplete findings. Quality ID #[id number]: The [employer] [employer] recommends an annual screening mammogram for women aged 40 years or over. This facility utilizes a reminder system to ensure that all patients receive reminder letters, and/or direct phone calls for appointments. This includes reminders for routine scr eening mammograms, diagnostic mammograms, or other Breast Imaging Interventions when appropriate. Th is patient will be placed in the appropriate reminder system. The [employer] [place] [employer] (ACR) has developed recommendations for screening MRI of the breast s in certain patient populations, to be used in conjunction with mammography. Breast MRI surveillanc e may be appropriate for women with more than 20% lifetime risk of developing breast cancer as deter mined by genetic testing, significant family history of the disease, or history of mantle radiation f or Hodgkins Disease. ACR Practice Guidelines 2008. DBT Technology DBT is a type of tomographic mammography. With conventional mammography, overlapping breast tissue ma y make lesions difficult to detect, even with good compression. DBT uses an x-ray tube that rotates a round the breast, taking images at different angles. These images are then combined to create thin sl ices of the breast that the radiologist can view as a 3D reconstruction. The evOLED unit can perform full-field digital mammograms (2D imaging); or DBT (3D imaging); or both, in a combination mode that quickly performs both the mammogram and the tomosynthesis scan while the breast is still compressed. PQRS 6045F: Fluoroscopic imaging is not utilized for breast tomosynthesis. TECHNICAL DOCUMENTATION: FINDING NUMBER: (1) ASSESSMENT: (1) JOB ID: [id number] [employer]- All Rights Reserved Reading location - IP/workstation name: [facility]
== END ==
LOC: WI 10:05
PROVIDERS: ATTEND Internal Medicine
DX: Z12.31 Encounter for screening mammogram for malignant neoplasm of breast (principal)
CPT/HCPCS: 77063; 77067

== ENCOUNTER 2018-07-30 20:36 | Emergency (ER) | payer MEDICARE, MEDICAID ==
--- NOTE | 2018-07-30 21:40 | RADIOLOGY REPORT (SQ) ---
EXAM DESCRIPTION: XR HIP 2 OR MORE VIEWS COMPLETED DATE/TME: 07/30/2018 00:00 CLINICAL HISTORY: 48 years, Female, Fell this AM. Hurts to walk. COMPARISON: 12/15/2014. NUMBER OF VIEWS: Two TECHNIQUE: Single frontal view of the pelvis and lateral view of the RIGHT hip was obtained. LIMITATIONS: None. FINDINGS: No fracture or dislocation. The joint spaces are preserved. The soft tissues are within normal limits. IMPRESSION: No acute radiographic abnormality. copyright 2010 [employer]- All Rights Reserved
[2018-07-30] MEDS ORDERED: ACETAMINOPHEN 325 MG TABLET PO ONE (22:18)
[2018-07-30] MEDS ORDERED: LIDOCAINE 5% (700 MG) TRANSDERMAL ADH..PATCH TP ONE (22:18)
[2018-07-30] MEDS ORDERED: IBUPROFEN 600 MG TABLET PO ONE (22:18)
--- NOTE | 2018-07-30 22:18 | ER Document Report ---
HPI - HPI Time Seen by Provider: 07/30/18 21:44 Pain Level: 5 Context: Patient is an obese 48-year-old female who presents to the emergency department with a chief complaint of right hip pain. She states that she fell this morning on her hip and was able to get up with the help of her "helping dog." She is able to walk with help. Reports she fell also a month ago and has had issues since. She took some ibuprofen earlier today, but states that only helped a little bit. She has a an extensive past medical history with chronic issues. She is on Lyrica. - CONSTITUTIONAL Constitutional: DENIES: Fever, Chills - NEURO Neurology: DENIES: Headache, Weakness, Vision blurred, Dizzinesss / Vertigo - CARDIOVASCULAR Cardiovascular: DENIES: Chest pain - RESPIRATORY Respiratory: DENIES: Trouble Breathing - GASTROINTESTINAL Gastrointestinal: DENIES: Abdominal Pain - URINARY Urinary: DENIES: Dysuria - REPRODUCTIVE Reproductive: DENIES: : - MUSCULOSKELETAL Musculoskeletal: REPORTS: Extremity pain - DERM Skin Color: Normal Skin Problems: None Past Medical History - Social History Smoking Status: Current Every Day Smoker Frequency of alcohol use: None Drug Abuse: None Family History: DM Patient has suicidal ideation: No Patient has homicidal ideation: No - Past Medical History Cardiac Medical History: Reports: Hx Coronary Artery Disease, Hx Hypercholesterolemia, Hx Hypertension - on meds Denies: Hx Heart Attack Pulmonary Medical History: Reports: Hx Asthma - inhalers,neb, Hx Bronchitis - hx of, Hx Pneumonia - hx of Denies: Hx COPD, Hx Tuberculosis Neurological Medical History: Reports: Hx Cerebrovascular Accident - 2012, L side seakness TIA x7 (most recent 2015). Denies: Hx Seizures Endocrine Medical History: Reports: Hx Diabetes Mellitus Type 2 Renal/ Medical History: Denies: Hx Peritoneal Dialysis Musculoskeletal Medical History: Reports Hx Arthritis - generalized Psychiatric Medical History: Reports: Hx Bipolar Disorder, Hx Depression - anxiety Past Surgical History: Reports: Hx Oral Surgery, Hx Orthopedic Surgery - R ankle, Hx Tonsillectomy - Immunizations Hx Diphtheria, Pertussis, Tetanus Vaccination: No Hx Pneumococcal Vaccination: 03/22/14 Vertical Provider Document - CONSTITUTIONAL Exam Limitations: No Limitations General Appearance: No Apparent Distress, Obese - INFECTION CONTROL TRAVEL OUTSIDE OF THE [place] IN LAST 30 DAYS: No - HEENT HEENT: Atraumatic - NECK Neck: Normal Inspection - RESPIRATORY Respiratory: Breath Sounds Normal, No Respiratory Distress - CARDIOVASCULAR Cardiovascular: Regular Rate, Regular Rhythm Pulses: Normal: Radial, Dorsalis pedis - GI/ABDOMEN Gastrointestinal: Abdomen Soft, Normal Bowel Sounds - BACK Back: Normal Inspection - MUSCULOSKELETAL/EXTREMETIES Musculoskeletal/Extremeties: FROM, Tender - right hip, No Edema - NEURO Level of Consciousness: Awake, Alert, Appropriate Motor/Sensory: No Motor Deficit, No Sensory Deficit - DERM Integumentary: Warm, Dry Course - Re-evaluation Re-evalutation: The patient's x-ray is negative for an acute fracture or dislocation. She will be ordered motin, tylenol, and a lidocaine patch for her symptoms. She is on Lyrica I have informed her to keep taking her lyrica as directed. She does not move a lot, nor is she physically active. I have strongly suggested she go to physical therapy to help strengthen her muscles since she does not seem like she is strong normally. Verbal discharge instructions were given to the patient. They verbalized understanding. They are stable for discharge. - Vital Signs Vital signs: Temp Pulse Resp BP Pulse Ox 98.8 F 122 H 20 178/110 H 94 07/30/18 20:43 07/30/18 20:43 07/30/18 20:43 07/30/18 20:43 07/30/18 20:43 Discharge - Discharge Clinical Impression: Right hip pain Fall Qualifiers: Encounter type: initial encounter Qualified Code(s): W19.XXXA - Unspecified fall, initial encounter Condition: Stable Disposition: HOME, SELF-CARE Additional Instructions: You were seen today in the emergency apartment for a fall. There is no fracture on x-ray. You may have bruised your hip, causing your pain. You can take Motrin 600 mg and Tylenol 1000 mg every 6 hours as needed for your pain. Please follow-up with your primary care doctor in regards to this visit. If you are unable to walk, have worsening symptoms, or have any symptoms that are worrisome to you, please return to the emergency department. Referrals: MARYELLEN ZARATE MD [Primary Care Provider] - 07/31/18
[2018-07-30 22:42] VITALS: BP 138/77
== END 2018-07-30 22:37 | disposition home or self-care (01) ==
LOC: ER 20:36
DX: M25.551 Pain in right hip (principal); W19.XXXA Unspecified fall, initial encounter; F17.200 Nicotine dependence, unspecified, uncomplicated; I25.10 Atherosclerotic heart disease of native coronary artery without angina pectoris; I10 Essential (primary) hypertension; J45.909 Unspecified asthma, uncomplicated; E11.9 Type 2 diabetes mellitus without complications
CPT/HCPCS: 99283; 73502; A9270 ×2

== ENCOUNTER 2019-01-28 07:04 | Emergency (ER) | payer MEDICARE, MEDICAID ==
--- NOTE | 2019-01-28 07:11 | ER Document Report ---
ED Medical Screen (RME) - General Stated Complaint: FALL/KNEE PAIN Time Seen by Provider: 01/28/19 07:09 Primary Care Provider: MARYELLEN ZARATE MD [Primary Care Provider] - Follow up as needed Mode of Arrival: Wheelchair Information source: Patient Notes: Patient presents emergency department with complaints of left knee pain. Reports she fell yesterday on her knee and has had pain since that time. Reports difficult to walk due to the pain. No obvious deformity no erythema notes obvious swelling patient complains of pain to touch I have greeted and performed a rapid initial assessment of this patient. A comprehensive ED assessment and evaluation of the patient, analysis of test results and completion of the medical decision making process will be conducted by additional ED providers. Dictation of this chart was performed using voice recognition software; therefore, there may be some unintended grammatical errors. TRAVEL OUTSIDE OF THE [place] IN LAST 30 DAYS: No - Related Data Allergies/Adverse Reactions: prednisone [Prednisone] Allergy (Severe, Verified 08/01/17 14:25) Hives red dye [Red Dye] Allergy (Severe, Verified 08/01/17 14:25) Hives Past Medical History - Past Medical History Cardiac Medical History: Reports: Hx Coronary Artery Disease, Hx Hypercholesterolemia, Hx Hypertension - on meds Denies: Hx Heart Attack Pulmonary Medical History: Reports: Hx Asthma - inhalers,neb, Hx Bronchitis - hx of, Hx Pneumonia - hx of Denies: Hx COPD, Hx Tuberculosis Neurological Medical History: Reports: Hx Cerebrovascular Accident - 2011, L side seakness TIA x7 (most recent 2015). Denies: Hx Seizures Endocrine Medical History: Reports: Hx Diabetes Mellitus Type 2 Renal/ Medical History: Denies: Hx Peritoneal Dialysis Musculoskeltal Medical History: Reports Hx Arthritis - generalized Psychiatric Medical History: Reports: Hx Bipolar Disorder, Hx Depression - anxiety Past Surgical History: Reports: Hx Oral Surgery, Hx Orthopedic Surgery - R ankle, Hx Tonsillectomy - Immunizations Hx Diphtheria, Pertussis, Tetanus Vaccination: No History of Influenza Vaccine for 03/2017 - 08/2017 Season: No Doctor's Discharge - Discharge Referrals: MARYELLEN ZARATE MD [Primary Care Provider] - Follow up as needed
[2019-01-28 07:13] VITALS: BP 135/97
[2019-01-28] MEDS ORDERED: KETOROLAC TROMETHAMINE 60 MG/2 ML SDV IM ONE (07:37)
--- NOTE | 2019-01-28 07:51 | RADIOLOGY REPORT (SQ) ---
EXAM DESCRIPTION: XR KNEE 4 OR MORE VIEWS COMPLETED DATE/TME: 01/28/2019 07:09 CLINICAL HISTORY: 48 years Female, PAIN, FELL YESTERDAY COMPARISON: None. Findings: Mild tricompartmental osteoarthritis. Bones, joints, and soft tissues of the LEFT XR KNEE 4 OR MORE VIEWS appear otherwise unremarkable. IMPRESSION: No acute findings.
--- NOTE | 2019-01-28 07:57 | ER Document Report ---
Entered by MARYELLEN VERA SCRIBE 01/28/19 0733 Acting as scribe for:ISAÍAS HARVEY MD ED General - General Chief Complaint: Knee Injury Stated Complaint: FALL/KNEE PAIN Time Seen by Provider: 01/28/19 07:09 Primary Care Provider: MARYELLEN ZARATE MD [Primary Care Provider] - Follow up as needed (Follow- up in 2 weeks if symptoms not improving) Mode of Arrival: Wheelchair Notes: Is a 48-year-old female presented to the emergency department complaining of knee pain. Patient states that she experience a fall, she slipped in the rain while letting her dogs out. Patient states that she fell down on her left knee. Patient states that she took Aleve at midnight last night to alleviate the pain. Patient states that she takes 1 aspirin a day. TRAVEL OUTSIDE OF THE [place] IN LAST 30 DAYS: No - Related Data Allergies/Adverse Reactions: prednisone [Prednisone] Allergy (Severe, Verified 08/01/17 14:25) Hives red dye [Red Dye] Allergy (Severe, Verified 08/01/17 14:25) Hives Past Medical History - General Information source: Patient - Social History Smoking Status: Unknown if Ever Smoked Cigarette use (# per day): No Chew tobacco use (# tins/day): No Frequency of alcohol use: None Drug Abuse: None Family History: DM Patient has suicidal ideation: No Patient has homicidal ideation: No - Past Medical History Cardiac Medical History: Reports: Hx Coronary Artery Disease, Hx Hypercholesterolemia, Hx Hypertension - on meds Pulmonary Medical History: Reports: Hx Asthma - inhalers,neb, Hx Bronchitis - hx of, Hx Pneumonia - hx of Neurological Medical History: Reports: Hx Cerebrovascular Accident - 2012, L side seakness TIA x7 (most recent 2016) Endocrine Medical History: Reports: Hx Diabetes Mellitus Type 2 Musculoskeletal Medical History: Reports Hx Arthritis - generalized Psychiatric Medical History: Reports: Hx Bipolar Disorder, Hx Depression - anxiety Past Surgical History: Reports: Hx Oral Surgery, Hx Orthopedic Surgery - R ankle, Hx Tonsillectomy - Immunizations Hx Diphtheria, Pertussis, Tetanus Vaccination: No Hx Pneumococcal Vaccination: 03/22/14 Review of Systems - Review of Systems Constitutional: No symptoms reported EENT: No symptoms reported Cardiovascular: No symptoms reported Respiratory: No symptoms reported Gastrointestinal: No symptoms reported Genitourinary: No symptoms reported Female Genitourinary: No symptoms reported Musculoskeletal: See HPI, Other - Left Knee pain Skin: No symptoms reported Hematologic/Lymphatic: No symptoms reported Neurological/Psychological: No symptoms reported -: Yes All other systems reviewed and negative Physical Exam - Vital signs Vitals: Temp Pulse Resp BP Pulse Ox 98.3 F 96 20 135/97 H 99 01/28/19 07:10 01/28/19 07:10 01/28/19 07:10 01/28/19 07:10 01/28/19 07:10 - Notes Notes: Physical Exam: General: Alert, appears well, talkative. HEENT: Normocephalic. Atraumatic. PERRL. Extraocular movements intact. Oropharynx clear. Neck: Supple. Non-tender. Respiratory: No respiratory distress. Clear and equal breath sounds bilaterally. Cardiovascular: Regular rate and rhythm. Abdominal: Normal Inspection. Non-tender. No distension. Normal Bowel Sounds. Back: Non-tender. No deformity or step off. Extremities: Moves all four extremities. Upper extremities: Normal inspection. Normal ROM. Lower extremities: Tenderness to palpation over the right patella. Joint stability present. No edema. Normal ROM. Neurological: Normal cognition. AAOx4. Normal speech. Psychological: Normal affect. Normal Mood. Skin: Warm. Dry. Normal color. Course - Re-evaluation Re-evalutation: 01/28/19 07:55 3 shows no acute abnormalities. Instructed patient to use heating pad range of motion and anti-inflammatories [id number]. She is to follow-up with medical care within the next 2 weeks if symptoms are not improving for further evaluation. - Vital Signs Vital signs: Temp Pulse Resp BP Pulse Ox 98.3 F 96 20 135/97 H 99 01/28/19 07:10 01/28/19 07:10 01/28/19 07:10 01/28/19 07:10 01/28/19 07:10 Discharge - Discharge Clinical Impression: Knee pain, left Qualifiers: Chronicity: acute Qualified Code(s): M25.562 - Pain in left knee Condition: Good Disposition: HOME, SELF-CARE Instructions: Sprained Knee ([facility]) Prescriptions: Diclofenac Sodium [Voltaren] 100 gm TP QID #1 gel..gm. Referrals: MARYELLEN ZARATE MD [Primary Care Provider] - Follow up as needed (Follow- up in 2 weeks if symptoms not improving) I personally performed the services described in the documentation, reviewed and edited the documentation which was dictated to the scribe in my presence, and it accurately records my words and actions.
== END 2019-01-28 08:18 | disposition home or self-care (01) ==
LOC: ER 07:04
DX: M25.562 Pain in left knee (principal); W01.0XXA Fall on same level from slipping, tripping and stumbling without subsequent striking against object, initial encounter; Z79.82 Long term (current) use of aspirin; Z79.899 Other long term (current) drug therapy; I25.10 Atherosclerotic heart disease of native coronary artery without angina pectoris; I10 Essential (primary) hypertension; J45.909 Unspecified asthma, uncomplicated; E11.9 Type 2 diabetes mellitus without complications
CPT/HCPCS: 73564; J1885; 96374; 99283

== ENCOUNTER 2019-02-04 22:28 | Inpatient (IN) | payer MEDICARE, MEDICAID ==
--- NOTE | 2019-02-04 22:54 | ER Document Report ---
ED Syncope and Near Syncope - General Chief Complaint: Fainting Stated Complaint: WEAKNESS Time Seen by Provider: 02/04/19 22:44 Primary Care Provider: MARYELELN ZARATE MD [Primary Care Provider] - Follow up as needed TRAVEL OUTSIDE OF THE [place] IN LAST 30 DAYS: No - HPI Notes: Patient is a 48-year-old female that presents to the emergency department for chief complaint of syncopal episode. Patient's daughter states that she was with the patient outside and they were digging a grave to bury their dog. She states she went inside to get something and when she came back out the patient was sitting on the ground leaning to the side unresponsive. She states that she was trying to wake her up but she would not. She denies any fall or injury. Patient became more awake with EMS after an ammonia stimulation. Patient's daughter states it was about 5 minutes of not responding prior to EMS arriving. Patient now complaining of some numbness in her left arm which she states is new. She does have a history of stroke with chronic left upper and lower extremity weakness compared to the right. She denies headache, vision changes, chest pain, palpitations and shortness of breath. Past Medical History: Diabetes, stroke, hypertension, hyperlipidemia Past Surgical History: Reviewed in chart Social History: Reviewed in chart Family History: Reviewed and noncontributory for presenting illness Allergies: Reviewed, see documented allergy list. REVIEW OF SYSTEMS: CONSTITUTIONAL : No fever No chills No diaphoresis No recent illness EENT: No vision changes No congestion No sore throat CARDIOVASCULAR: No chest pain Syncope No palpitations RESPIRATORY: No shortness of breath No cough No difficulty breathing GASTROINTESTINAL: No abdominal pain No nausea No vomiting No diarrhea GENITOURINARY: No dysuria No hematuria No difficulty urinating MUSCULOSKELETAL: No back pain No leg pain No arm pain SKIN: No rashes No lesions LYMPHATIC: No swollen, enlarged glands. NEUROLOGICAL: No lightheadedness No headache weakness paresthesias PSYCHIATRIC: No anxiety depression PHYSICAL EXAMINATION: Vital signs reviewed, nursing noted reviewed. GENERAL: Disheveled, obese and in no acute distress. HEAD: Atraumatic, normocephalic. EYES: Eyes appear normal, extraocular movements intact, sclera anicteric, conjunctiva are normal. ENT: nares patent, oropharynx clear without exudates. Moist mucous membranes. NECK: Normal range of motion, supple without lymphadenopathy LUNGS: Breath sounds clear to auscultation bilaterally and equal. No wheezes rales or rhonchi. HEART: Regular rate and rhythm without murmurs ABDOMEN: Soft, nontender, normoactive bowel sounds. No rebound, guarding, or rigidity. No masses appreciated. EXTREMITIES: Nontender, good range of motion, no pitting or edema. NEUROLOGICAL: Left upper and lower extremity weakness compared to the right side but still 5/5 strength. Subjective paresthesia to left upper and lower extremity diffusely, normal sensory testing to the right extremities and face. A&O x3, alert PSYCH: Depressed mood, flat affect. SKIN: Warm, Dry, normal turgor, no rashes or lesions noted on exposed skin - Related Data Allergies/Adverse Reactions: prednisone [Prednisone] Allergy (Severe, Verified 08/01/17 14:25) Hives red dye [Red Dye] Allergy (Severe, Verified 08/01/17 14:25) Hives Past Medical History - Social History Smoking Status: Never Smoker Family History: DM - Past Medical History Cardiac Medical History: Reports: Hx Coronary Artery Disease, Hx Hypercholesterolemia, Hx Hypertension - on meds Denies: Hx Heart Attack Pulmonary Medical History: Reports: Hx Asthma - inhalers,neb, Hx Bronchitis - hx of, Hx Pneumonia - hx of Denies: Hx COPD, Hx Tuberculosis Neurological Medical History: Reports: Hx Cerebrovascular Accident - 2012, L side seakness TIA x7 (most recent 2016). Denies: Hx Seizures Endocrine Medical History: Reports: Hx Diabetes Mellitus Type 2 Renal/ Medical History: Denies: Hx Peritoneal Dialysis Musculoskeletal Medical History: Reports Hx Arthritis - generalized Psychiatric Medical History: Reports: Hx Bipolar Disorder, Hx Depression - anxiety Past Surgical History: Reports: Hx Oral Surgery, Hx Orthopedic Surgery - R ankle, Hx Tonsillectomy - Immunizations Hx Diphtheria, Pertussis, Tetanus Vaccination: No Hx Pneumococcal Vaccination: 03/22/14 Physical Exam - Vital signs Vitals: Pulse Resp BP Pulse Ox 90 18 145/87 H 98 02/04/19 22:44 02/04/19 22:44 02/04/19 22:44 02/04/19 22:44 Course - Re-evaluation Re-evalutation: 02/04/19 22:54 Vitals reviewed. Nursing notes reviewed. Patient syncopal episode occurred around 940 this evening. She does report new left arm numbness but has chronic weakness on the left and chronic numbness in the left leg. Patient's NIH is 3 and she is not a candidate for TPA. She does have a history of stroke and CT scan of the brain will be obtained to further evaluate her change in mental status and new numbness. EKG shows no STEMI 02/05/19 00:[address] scan shows no acute intracranial hemorrhage or new stroke. Her neurologic reevaluation is unchanged. She is still complaining of new numbness in the left arm. Patient now also complaining of a headache over her right eye. She was given aspirin and a dose of Tylenol in the ED. Patient's cardiac work- up is also unremarkable. At this point is unclear if she had a syncopal episode causing her to be unresponsive or new acute stroke. Patient will be admitted to the hospital for further monitoring. case discussed with admitting physician. Laboratory 02/04/19 02/04/19 02/04/19 22:48 22:48 22:48 WBC 9.6 RBC 4.54 Hgb 14.0 Hct 40.7 MCV 90 MCH 30.9 MCHC 34.5 RDW 13.8 Plt Count 132 L Lymph % (Auto) 24.3 [place] % (Auto) 4.7 Eos % (Auto) 1.9 Baso % (Auto) 0.6 Absolute Neuts (auto) 6.6 Absolute Lymphs (auto) 2.3 Absolute Monos (auto) 0.4 Absolute Eos (auto) 0.2 Absolute Basos (auto) 0.1 Seg Neutrophils % 68.5 PT 14.0 INR 1.08 APTT 30.3 Sodium 136.2 L Potassium 3.7 Chloride 100 Carbon Dioxide 28 Anion Gap 8 BUN 8 Creatinine 0.69 Est GFR ( Amer) > 60 Est GFR (MDRD) Non-Af > 60 Glucose 228 H Calcium 8.8 Total Bilirubin 0.6 Direct Bilirubin 0.2 Neonat Total Bilirubin Not Reportable Neonat Direct Bilirubin Not Reportable Neonat Indirect Bili Not Reportable AST 31 ALT 14 Alkaline Phosphatase 99 Troponin I Total Protein 6.8 Albumin 3.9 Urine Color Urine Appearance Urine pH Ur Specific [place] Urine Protein Urine Glucose (UA) Urine Ketones Urine Blood Urine Nitrite Urine Bilirubin Urine Urobilinogen Ur Leukocyte Esterase Urine WBC (Auto) Urine RBC (Auto) Urine Bacteria (Auto) Squamous Epi Cells Auto Urine Mucus (Auto) Urine Ascorbic Acid 02/04/19 02/04/19 22:48 23:50 WBC RBC Hgb Hct MCV MCH MCHC RDW Plt Count Lymph % (Auto) [place] % (Auto) Eos % (Auto) Baso % (Auto) Absolute Neuts (auto) Absolute Lymphs (auto) Absolute Monos (auto) Absolute Eos (auto) Absolute Basos (auto) Seg Neutrophils % PT INR APTT Sodium Potassium Chloride Carbon Dioxide Anion Gap BUN Creatinine Est GFR ( Amer) Est GFR (MDRD) Non-Af Glucose Calcium Total Bilirubin Direct Bilirubin Neonat Total Bilirubin Neonat Direct Bilirubin Neonat Indirect Bili AST ALT Alkaline Phosphatase Troponin I < 0.012 Total Protein Albumin Urine Color STRAW Urine Appearance CLEAR Urine pH 7.0 Ur Specific [place] 1.002 Urine Protein NEGATIVE Urine Glucose (UA) NEGATIVE Urine Ketones NEGATIVE Urine Blood NEGATIVE Urine Nitrite NEGATIVE Urine Bilirubin NEGATIVE Urine Urobilinogen NEGATIVE Ur Leukocyte Esterase NEGATIVE Urine WBC (Auto) 1 Urine RBC (Auto) 0 Urine Bacteria (Auto) TRACE Squamous Epi Cells Auto 4 Urine Mucus (Auto) RARE Urine Ascorbic Acid NEGATIVE Chest X-Ray 02/04/19 22:44 IMPRESSION: Negative chest copyright 2011 [employer]- All Rights Reserved Head CT 02/04/19 22:44 IMPRESSION: No acute intracranial abnormality TECHNICAL DOCUMENTATION: Quality ID # 436: Final reports with documentation of one or more dose reduction techniques (e.g., Automated exposure control, adjustment of the mA and/or kV according to patient size, use of iterative reconstruction technique) copyright 2011 [employer]- All Rights Reserved - Vital Signs Vital signs: Temp Pulse Resp BP Pulse Ox 90 18 145/87 H 98 02/04/19 22:44 02/04/19 22:44 02/04/19 22:44 02/04/19 22:44 - Laboratory Result Diagrams: 02/04/19 22:48 02/04/19 22:48 Laboratory results interpreted by me: 02/04/19 02/04/19 22:48 22:48 Plt Count 132 L Sodium 136.2 L Glucose 228 H - EKG Interpretation by Me Additional EKG results interpreted by me: 02/04/19 22:54 Interpreted by myself [id number]: Normal sinus rhythm, rate 91, normal axis, no ectopy, no STEMI Discharge - Discharge Clinical Impression: Left arm numbness Syncope Qualifiers: Syncope type: unspecified Qualified Code(s): R55 - Syncope and collapse Condition: Stable Disposition: ADMITTED INPATIENT Admitting Provider: Karey (Hospitalist) Unit Admitted: [facility] ED NIH Stroke Scale - NIH Stroke Scale *: 1. NIH scale should be completed with appropriate accompanying assessment tools. *: 2. The NIH should reflect what the patient is capable of doing and should not be coached by the clinician. 1a. Level of Consciousness: 0=Alert;keenly responsive -: 1=Drowsy -: 2=Obtunded -: 3=Coma/unresponsive or reflex to noxious stimuli. 1a. Responses: 0 1b. Orientation Questions: a. What month is it? -: b. How old are you? -: 0=Answers both questions correctly. -: 1=Answers one question correctly or patient is intubated or has orotracheal trauma. -: 2=Answers neither question correctly. 1b. Responses: 0 1c. Response to commands: a. Open and close eyes? -: b. Neurobiologist and release hand? -: Credit is given despite weakness. Demonstration of task is permitted. Substitute command if hands cannot be used. -: 0=Performs both tasks correctly -: 1=Performs one task correctly -: 2=Performs neither task correctly 1c. Responses: 0 2. Gaze: Establish eye contact and instruct patient to "Follow my finger" -: 0=Normal -: 1=Partial gaze palsy. Gaze is abnormal in one or both eyes, but where forced deviation or total gaze paresis is not present. -: 2=Forced deviation or total gaze paresis. 2. Responses: 0 3. Visual Dyson: Sees fingers in all four quadrants. -: 0=No visual loss. -: 1=Partial hemianopsia. -: 2=Complete hemianopsia. -: 3=Bilateral hemianopsia (including Cortical blindness) 3. Responses: 0 4. Facial Movement: Instruct patient to: -: a. Show me your teeth -: b. Raise your eyebrows -: c. Close your eyes -: d. Smile -: 0=Normal symmetrical movement -: 1=Minor paralysis (flattened nasolabial fold, asymmetry on smiling). -: 2=Partial paralysis (total or near total paralysis of lower face). -: 3=Complete paralysis of upper and lower face 4. Responses: 0 5. Motor functions (left arm): Alternate sides and extend each arm with palms down (90 degrees if sitting or 45 degrees for supine). -: 0=No drift;limb holds for full 10 seconds. -: 1=Drift; limb holds but drifts down before full 10 seconds, but does not hit bed. -: 2=Some effort against gravity; limb cannot get to or maintain position. -: 3=No effort against gravity; limb falls. -: 4=No movement. -: UN=Amputation, joint fusion, explain in comments. 5. Responses (left arm): 1 5. Motor Functions (right arm): Alternate sides and extend each arm with palms down (90 degrees if sitting or 45 degrees for supine). -: 0=No drift;limb holds for full 10 seconds. -: 1=Drift; limb holds but drifts down before full 10 seconds, but does not hit bed. -: 2=Some effort against gravity; limb cannot get to or maintain position. -: 3=No effort against gravity; limb falls. -: 4=No movement. -: UN=Amputation, joint fusion, explain in comments. 5. Responses (right arm): 0 6. Motor Functions (left leg): With patient lying supine, alternate sides and extend each leg (30 degrees always while supine). -: 0=No drift, leg holds position for full 5 seconds -: 1=Drift; leg falls before full 5 seconds but does not hit bed. -: 2=Some effort against gravity, leg falls to bed but some effort against gravity. -: 3=No effort against gravity, leg falls to bed immediately. -: 4=No movement. -: UN=Amputation, joint fusion; explain in comments. 6. Responses (left leg): 1 6. Motor Functions (right leg): With patient lying supine, alternate sides and extend each leg (30 degrees always while supine). -: 0=No drift, leg holds position for full 5 seconds -: 1=Drift; leg falls before full 5 seconds but does not hit bed. -: 2=Some effort against gravity, leg falls to bed but some effort against gravity. -: 3=No effort against gravity, leg falls to bed immediately. -: 4=No movement. -: UN=Amputation, joint fusion; explain in comments. 6. Responses (right leg): 0 7. Limb Ataxia: With eyes open instruct patient to: -: a. "Touch your finger to your nose". -: b. "Touch your heel to your hidalgo" -: 0=Absent -: 1=Present in one limb. -: 2=Present in two limbs. -: UN=Amputation or joint fusion; explain in comments. 7. Responses: 0 8. Sensory: Test sensation using pinprick or noxious stimuli. Test as many body parts as possible. -: 0=Normal;no sensory loss -: 1=Mile to moderate sensory loss (patient feels pin prick but is less sharp on affected side). -: 2=Severe or total sensory loss. 8. Responses: 1 9. Best Language: Instruct patient to: -: a. "Describe what you see in this picture." -: b. "Name the items in this picture." -: c. "Read these sentences." -: 0=No aphasia, normal -: 1=Mild to moderate aphasia. -: 2=Severe aphasia -: 3=Mute, global aphasia, no usable speech or auditory comprehension. 9. Responses: 0 10. Articulation, Dysarthia: Instruct patient to: -: "Read these words" or "Repeat these words" -: 0=Normal -: 1=Mild to moderate; patient may slur some words but can be understood without difficulty. -: 2=Severe; patients speech so slurred as to be unintelligible in the absence of dysphasia. -: UN=Intubated or other physical barrier, explain in comments. 10. Responses: 0 11. Extinction or inattention: 0=No abnormality -: 1= Visual, tactile, auditory, spatial, or personal inattention or extinction to bilateral simulation in one or the sensory modalities. -: 2=Profound cristopher-inattention or cristopher-inattention to more than one modality; does not recognize own hand. 11. Responses: 0 Total Score: 3
[2019-02-04 23:03] LABS: ABSOLUTE BASOPHILS # (AUTO) 0.1 10^3/uL (0.0-0.2); ABSOLUTE EOSINOPHILS # (AUTO) 0.2 10^3/uL (0.0-0.6); ABSOLUTE LYMPHOCYTES (AUTO) 2.3 10^3/uL (0.5-4.7); ABSOLUTE MONOCYTES (AUTO) 0.4 10^3/uL (0.1-1.4); ABSOLUTE NEUT (AUTO) 6.6 10^3/uL (1.7-8.2); BASOPHILS % (AUTO) 0.6 % (0-2); EOSINOPHILS % (AUTO) 1.9 % (0-6); HEMATOCRIT 40.7 % (36.0-47.0); LYMPHOCYTES % (AUTO) 24.3 % (13-45); MEAN CORPUSCULAR HEMOGLOBIN 30.9 pg (27.0-33.4); MEAN CORPUSCULAR HGB CONC 34.5 g/dL (32.0-36.0); MEAN CORPUSCULAR VOLUME 90 fl (80-97); MONOCYTES % (AUTO) 4.7 % (3-13); PLATELET COUNT 132 10^3/uL (150-450); RED BLOOD COUNT 4.54 10^6/uL (3.72-5.28); RED CELL DISTRIBUTION WIDTH 13.8 % (11.5-14.0); SEGMENTED NEUTROPHILS % (AUTO) 68.5 % (42-78); TOTAL CELLS COUNTED % (AUTO) 100 %; WHITE BLOOD COUNT 9.6 10^3/uL (4.0-10.5)
[2019-02-04 23:10] LABS: INTERNATIONAL RATION (INR) 1.08
[2019-02-04 23:11] LABS: PARTIAL THROMBOPLASTIN TIME 30.3 SEC (23.5-35.8)
--- NOTE | 2019-02-04 23:19 | RADIOLOGY REPORT (SQ) ---
EXAM DESCRIPTION: XR CHEST 1 VIEW COMPLETED DATE/TME: 02/04/2019 22:44 CLINICAL HISTORY: 48 years, Female, left side weakness COMPARISON: 08/01/2017 chest NUMBER OF VIEWS: 1 TECHNIQUE: Portable chest LIMITATIONS: None. FINDINGS: Heart size is normal. Lungs are clear. There is no pneumothorax IMPRESSION: Negative chest copyright 2010 [employer]- All Rights Reserved
[2019-02-04 23:31] LABS: ALBUMIN 3.9 g/dL (3.5-5.0); ALKALINE PHOSPHATASE 99 U/L (38-126); ANION GAP 8 (5-19); ASPARTATE AMINO TRANSFERASE 31 U/L (14-36); BILIRUBIN,DIRECT 0.2 mg/dL (0.0-0.4); BILIRUBIN,TOTAL 0.6 mg/dL (0.2-1.3); BLOOD UREA NITROGEN 8 mg/dL (7-20); CALCIUM 8.8 mg/dL (8.4-10.2); CARBON DIOXIDE 28 mmol/L (22-30); CHLORIDE 100 mmol/L (98-107); GLUCOSE 228 mg/dL (75-110); POTASSIUM 3.7 mmol/L (3.6-5.0); TOTAL PROTEIN 6.8 g/dL (6.3-8.2)
--- NOTE | 2019-02-04 23:38 | RADIOLOGY REPORT (SQ) ---
EXAM DESCRIPTION: CT HEAD WITHOUT IV CONTRAST COMPLETED DATE/TME: 02/04/2019 22:44 CLINICAL HISTORY: 48 years, Female, left side weakness COMPARISON: 06/07/2017 TECHNIQUE: [id number] Images stored on PACS. All CT scanners at this facility use dose modulation, iterative reconstruction, and/or weight based dosing when appropriate to reduce radiation dose to as low as reasonably achievable (ALARA). [facility]: Dose Right [facility]: CareDose [facility]: Dose Right [facility]: Teradose 4D [facility]: [employer] LIMITATIONS: None. FINDINGS: The globes are intact. The paranasal sinuses and mastoid air cells are well aerated. No displaced or depressed skull fracture. No intra or extra-axial hemorrhage. CT is limited for evaluation of acute infarct. No CT evidence for large or territorial acute infarct. No mass. No midline shift IMPRESSION: No acute intracranial abnormality TECHNICAL DOCUMENTATION: Quality ID # 436: Final reports with documentation of one or more dose reduction techniques (e.g., Automated exposure control, adjustment of the mA and/or kV according to patient size, use of iterative reconstruction technique) copyright 2011 [employer]- All Rights Reserved
[2019-02-05] MEDS ORDERED: ASPIRIN 325 MG TABLET PO ONE (00:02)
[2019-02-05 00:04] LABS: APPEARANCE,URINE CLEAR; BILIRUBIN,URINE NEGATIVE (NEGATIVE); COLOR,URINE STRAW; GLUCOSE, URINE NEGATIVE (NEGATIVE); KETONES,URINE NEGATIVE (NEGATIVE); LEUKOCYTE ESTERASE,URINE NEGATIVE (NEGATIVE); NITRITE,URINE NEGATIVE (NEGATIVE); PROTEIN,URINE NEGATIVE (NEGATIVE); URINE SPECIFIC GRAVITY 1.002; UROBILINOGEN,URINE NEGATIVE mg/dL (<2.0)
[2019-02-05] MEDS ORDERED: ONDANSETRON HCL INJ/PF 4 MG/2 ML SDV IV PRN (01:46)
[2019-02-05] MEDS ORDERED: RINGERS SOLUTION,LACTATED 1,000 ML IV PRN (01:46)
[2019-02-05] MEDS ORDERED: MAGNESIUM HYDROXIDE SUSP 30 ML UDCUP PO PRN (01:46)
[2019-02-05] MEDS ORDERED: MAG HYDROX/AL HYDROX/SIMETH SUSP 30 ML UDCUP PO PRN (01:46)
[2019-02-05] MEDS ORDERED: HYDRALAZINE HCL INJ/PF 20 MG/1 ML SDV IV PRN (01:52)
[2019-02-05] MEDS ORDERED: GLUCAGON,HUMAN RECOMB 1 MG INJ IM PRN (01:52)
[2019-02-05] MEDS ORDERED: METOPROLOL TARTRATE PF/INJ 5 MG/5 ML SDV IV PRN (01:52)
[2019-02-05] MEDS ORDERED: ACETAMINOPHEN 325 MG TABLET PO PRN (01:52)
[2019-02-05] MEDS ORDERED: DEXTROSE 50%-WATER 25 GM/50 ML DISP.SYRIN IV PRN ×2 (01:52)
[2019-02-05] MEDS ORDERED: DEXTROSE 40% GEL 15 GM TUBE PO PRN ×2 (01:52)
[2019-02-05 03:18] LABS: FREE T3 2.99 pg/mL (2.77-5.27); FREE T4 (FREE THYROXINE) 0.91 ng/dL (0.78-2.19)
[2019-02-05 03:32] LABS: THYROID STIMULATING HORMONE 1.28 uIU/mL (0.47-4.68)
[2019-02-05 05:32] LABS: CHOLESTEROL 142.21 mg/dL (0-200); TRIGLYCERIDES 166 mg/dL (<150)
[2019-02-05 05:43] LABS: DIRECT LDL 96 mg/dL (<100)
[2019-02-05 05:44] LABS: CREATINE KINASE MB 0.23 ng/mL (<4.55)
[2019-02-05 05:46] LABS: TROPONIN I < 0.012 ng/mL; VLDL CHOLESTEROL 33.2 mg/dL (10-31)
[2019-02-05] MEDS: BUSPIRONE HCL 10 MG TABLET PO SCH ×3 (05:51→21:41)
[2019-02-05] MEDS: TRAMADOL HCL 50 MG TABLET PO SCH ×2 (05:51→14:10)
[2019-02-05] MEDS: HEPARIN SOD (PORCINE) 5,000 UNIT/ML 1 ML VIAL SUBCUT SCH ×3 (05:51→21:41)
--- NOTE | 2019-02-05 06:15 | PDOC H&P ---
History of Present Illness Admission Date/PCP: 02/05/19 00:58 MARYELLEN ZARATE MD Patient complains of: Syncopal episode History of Present Illness: MELISSA NAGEL is a 48 year old female presented to the emergency room with an acute syncopal episode. She admits that while she was outside digging a grave to bury her dog she collapsed to a sitting position leaning over to the ground one side and was unresponsive when family members found her. EMS was summoned and she was awakened with ammonia stimulation after a period of approximately 5 minutes of unresponsiveness. After she recovered consciousness she complained of numbness in her left arm and leg which is the only new symptom she has noticed. She is amnestic for her time unconsciousness. She has a history of a prior stroke with a mild chronic left hemiplegia and did develop a headache during her emergency room course. She denies other associated or accompanying signs and symptoms. She admits some similar episodes in the past with TIAs/strokes. She has not identified any aggravating or ameliorating factors for her syncopal episode. In the emergency room she was found to have a CT scan that showed no acute intracranial process and her laboratory evaluation was essentially unremarkable. She was subsequently admitted to the hospital for further evaluation and treatment. Past Medical History Cardiac Medical History: Reports: Coronary Artery Disease, Hyperlipidema, Hyp ertension Denies: Atrial Fibrillation, Congestive Heart Failure, DVT, Myocardial Infarction, Pulmonary Embolism Pulmonary Medical History: Reports: Asthma, Bronchitis, Pneumonia EENT Medical History: Denies: Cataracts, Ears - Hearing aids Neurological Medical History: Reports: Ischemic CVA Denies: Hemorrhagic CVA, Seizures Endocrine Medical History: Reports: Diabetes Mellitus Type 2, Obesity Denies: Diabetes Mellitus Type 1, Hyperthyroidism, Hypothyroidism Renal/ Medical History: Denies: Chronic Kidney Disease, Nephrolithiasis Malignancy Medical History: Reports: None GI Medical History: Denies: Cirrhosis, Crohn's Disease, Hepatitis, Peptic Ulcer Disease, Ulcerative Colitis Musculoskeltal Medical History: Reports: Arthritis - generalized Denies: Fibromyalgia, Gout Skin Medical History: Denies: Eczema, Psoriasis Psychiatric Medical History: Reports: Bipolar Disorder, Depression, General Anxiety Disorder Denies: Alcohol Dependency, Substance Abuse, Tobacco Dependency Traumatic Medical History: Reports: None Hematology: Denies: Anemia, Bleeding Tendencies Infectious Medical History: Reports: None Past Surgical History Past Surgical History: Reports: Orthopedic Surgery - R ankle, Tonsillectomy Social History Information Source: Patient Lives with: Spouse/Significant other Smoking Status: Never Smoker Frequency of Alcohol Use: None Hx Recreational Drug Use: No Drugs: None Hx Prescription Drug Abuse: No - Advance Directive Resuscitation Status: Full Code Surrogate healthcare decision maker:: Bailee Pardo Family History Family History: DM. denies: CAD, Hypertension, Malignancy Parental Family History Reviewed: Yes Children Family History Reviewed: No Sibling(s) Family History Reviewed.: Yes Medication/Allergy Home Medications: Albuterol Sulfate [Proventil 0.5% Neb 2.5 mg/0.5 mL Vial] 2.5 mg IH Q4HP PRN 07/28/11 Gabapentin [Neurontin 100 mg Capsule] 100 mg PO TID 11/14/11 Ascorbic Acid [Vitamin C] 500 mg PO DAILY 03/19/12 Aspirin [Aspirin 81 mg Chewable Tablet] 325 mg PO DAILY 03/19/12 Metformin HCl 1,000 mg PO BID 03/22/12 Ezetimibe [Zetia 10 mg Tablet] 10 mg PO DAILY 07/29/13 Linaclotide [Linzess 145 Mcg Capsule] 145 mcg PO DAILY 04/01/15 Atorvastatin Calcium 20 mg PO QHS 04/03/15 Cyanocobalamin (Vitamin B-12) [Vitamin B12] 1,000 mg PO BID 04/03/15 Indomethacin [Indocin 25 mg Capsule] 25 mg PO TID 04/03/15 Insulin Pump 70-30 See Protocol SQ CONTINUOUS PRN 04/03/15 Lisinopril 5 mg PO DAILY 04/03/15 Potassium Citrate [Urocit-K] 10 meq PO DAILY 04/03/15 Vitamin B6 100 mg PO DAILY 04/03/15 Tramadol HCl [Ultram] 50 mg PO BID #14 tablet 04/17/15 Desvenlafaxine Succinate [Pristiq] 100 mg PO DAILY 06/06/17 Folic Acid/Multivit,Iron,Owen [One Daily For Women Tablet] 1 tab PO DAILY 06/06/17 Insulin Aspart [Novolog Insulin (Aspart) 100 unit/mL] See Protocol SQ PRN PRN 06/06/17 Pregabalin [Lyrica] 75 mg PO DAILY 06/06/17 Verapamil HCl [Verapamil ER] 120 mg PO DAILY 06/06/17 Buspirone HCl [Buspar 10 mg Tablet] 10 mg PO DAILY 06/07/17 Levofloxacin [Levaquin 750 mg Tablet] 750 mg PO DAILY #4 tablet 08/01/17 Ondansetron [Zofran Odt 4 mg Tablet] 1 - 2 tab PO Q4H PRN #15 tab.rapdis 08/01/17 Benzonatate [Tessalon Perle 100 mg Capsule] 100 mg PO Q8HP PRN #20 cap 10/09/17 Doxycycline Hyclate 100 mg PO BID #14 capsule 10/09/17 Hydrocodone Bit/Homatropine [Hycodan Syrup 5-1.5 mg/5 ml Ud Cup] 5 ml PO Q4HP PRN #120 ml 10/09/17 Diclofenac Sodium [Voltaren] 100 gm TP QID #1 gel..gm. 01/28/19 Allergies/Adverse Reactions: prednisone [Prednisone] Allergy (Severe, Verified 08/01/17 14:25) Hives red dye [Red Dye] Allergy (Severe, Verified 08/01/17 14:25) Hives Review of Systems Constitutional: PRESENT: as per HPI, headache(s). ABSENT: chills, fever(s) Eyes: ABSENT: visual disturbances, other - Ocular pain Ears: ABSENT: hearing changes, other - Ear pain Nose, Mouth, and Throat: ABSENT: mouth pain, sore throat Cardiovascular: ABSENT: chest pain, palpitations Respiratory: ABSENT: cough, dyspnea Gastrointestinal: ABSENT: abdominal pain, constipation, diarrhea, nausea, vomiting Genitourinary: ABSENT: dysuria, hematuria Musculoskeletal: ABSENT: joint swelling, muscle weakness Integumentary: ABSENT: pruritus, rash Neurological: PRESENT: as per HPI, memory loss, numbness, syncope. ABSENT: confusion, convulsions, focal weakness Psychiatric: ABSENT: anxiety, depression Endocrine: ABSENT: cold intolerance, heat intolerance Hematologic/Lymphatic: ABSENT: easy bleeding, easy bruising Allergic/Immunologic: ABSENT: seasonal rhinorrhea Physical Exam Vital Signs: Temp Pulse Resp BP Pulse Ox 78 12 133/73 H 100 02/05/19 00:00 02/05/19 01:01 02/05/19 01:01 02/05/19 01:01 General appearance: PRESENT: no acute distress, cooperative, morbidly obese Head exam: PRESENT: atraumatic, normocephalic Eye exam: PRESENT: conjunctiva pink. ABSENT: conjunctival injection, scleral icterus Ear exam: PRESENT: normal external ear exam. ABSENT: bleeding, drainage Mouth exam: PRESENT: dry mucosa, neck supple Neck exam: ABSENT: thyromegaly, tracheal deviation Respiratory exam: PRESENT: clear to auscultation jean, symmetrical, unlabored Cardiovascular exam: PRESENT: RRR. ABSENT: clicks, gallop, rubs Pulses: PRESENT: normal radial pulses, normal dorsalis pedis pul Vascular exam: PRESENT: normal capillary refill. ABSENT: pallor GI/Abdominal exam: PRESENT: normal bowel sounds, soft Rectal exam: PRESENT: deferred Extremities exam: ABSENT: joint swelling, pedal edema, tenderness Musculoskeletal exam: PRESENT: deformity, dislocation Neurological exam: PRESENT: alert, oriented to person, oriented to place, oriented to time, oriented to situation, CN II-XII grossly intact, motor sensory deficit - mild left hemiplegia noted acting the upper and lower extremity, subjective decreased sensation/numbness left upper and lower extremities plus left torso. Psychiatric exam: PRESENT: appropriate affect, normal mood Skin exam: PRESENT: dry, intact, warm. ABSENT: jaundice, rash, urticaria Results Laboratory Results: 02/04/19 22:48 02/04/19 22:48 02/04/19 02/04/19 02/04/19 22:48 22:48 23:50 WBC 9.6 RBC 4.54 Hgb 14.0 Hct 40.7 MCV 90 MCH 30.9 MCHC 34.5 RDW 13.8 Plt Count 132 L Seg Neutrophils % 68.5 Sodium 136.2 L Potassium 3.7 Chloride 100 Carbon Dioxide 28 Anion Gap 8 BUN 8 Creatinine 0.69 Est GFR ( Amer) > 60 Glucose 228 H Calcium 8.8 Total Bilirubin 0.6 AST 31 Alkaline Phosphatase 99 Total Protein 6.8 Albumin 3.9 Urine Color STRAW Urine Appearance CLEAR Urine pH 7.0 Ur Specific [place] 1.002 Urine Protein NEGATIVE Urine Glucose (UA) NEGATIVE Urine Ketones NEGATIVE Urine Blood NEGATIVE Urine Nitrite NEGATIVE Ur Leukocyte Esterase NEGATIVE Urine WBC (Auto) 1 Urine RBC (Auto) 0 02/04/19 22:48 Troponin I < 0.012 Impressions: Chest X-Ray 02/04/19 22:44 IMPRESSION: Negative chest copyright 2011 [employer]- All Rights Reserved Head CT 02/04/19 22:44 IMPRESSION: No acute intracranial abnormality TECHNICAL DOCUMENTATION: Quality ID # 436: Final reports with documentation of one or more dose reduction techniques (e.g., Automated exposure control, adjustment of the mA and/or kV according to patient size, use of iterative reconstruction technique) copyright 2011 [employer]- All Rights Reserved Assessment and Plan - Diagnosis (1) Syncope Qualifiers: Syncope type: unspecified Qualified Code(s): R55 - Syncope and collapse Is this a current diagnosis for this admission?: Yes Plan: Patient syncopal episode will be treated with IV fluid hydration and close observation on IMCU. Patient will additionally have an MRI of the brain, a carotid Doppler study and an echocardiogram performed to evaluate her syncope and her acute neurologic changes. (2) Paresthesia Is this a current diagnosis for this admission?: Yes Plan: Patient will have close observation on IMCU. Patient will additionally have an MRI of the brain, a carotid Doppler study and an echocardiogram performed to evaluate her syncope and her acute neurologic changes. (3) Hypertension Qualifiers: Hypertension type: essential hypertension Qualified Code(s): I10 - Essential (primary) hypertension Is this a current diagnosis for this admission?: Yes Plan: Patient be continued on her usual blood pressure medications and her blood pressure monitored closely throughout her hospital course. Hypotensive episodes will be treated with hydralazine and/or metoprolol IV for blood pressures greater than 160 systolic or 100 diastolic. (4) Bipolar affective Qualifiers: Active/Remission status: remission status unspecified Qualified Code(s): F31.9 - Bipolar disorder, unspecified Is this a current diagnosis for this admission?: Yes Plan: Patient will be continued on her usual medications for bipolar affective disorder. Psychiatric consultation will be obtained if warranted. - Time Time Spent with patient: 15-24 minutes Medications reviewed and adjusted accordingly: Yes Anticipated discharge: Home - Inpatient Certification Based on my medical assessment, after consideration of the patient's comorbidities, presenting symptoms, or acuity I expect that the services needed warrant INPATIENT care.: Yes I certify that my determination is in accordance with my understanding of Medicare's requirements for reasonable and necessary INPATIENT services [42 CFR 412.3e].: Yes Medical Necessity: Significant Comorbidiites Make Outpatient Treatment Too Risky, Need Close Monitoring Due to Risk of Patient Decompensation, Need For IV Fluids, Need For Continuous Telemetry Monitoring, Need for Neurological Checks, Risk of Complication if Not Cared For in Hospital
[2019-02-05] MEDS: METFORMIN HCL 500 MG TABLET PO SCH ×2 (08:09→18:23)
[2019-02-05] MEDS: INSULIN REG, HUMAN 100 UNIT/ML 3 ML VIAL (PYX) SUBCUT PRN ×2 (08:09→12:07)
[2019-02-05] MEDS ORDERED: PREGABALIN 75 MG CAPSULE PO SCH (10:00)
[2019-02-05] MEDS: FAMOTIDINE 20 MG TABLET PO SCH ×2 (10:18→21:42)
[2019-02-05] MEDS: VERAPAMIL HCL 120 MG TABLET.SA PO SCH (10:18)
[2019-02-05] MEDS: DOCUSATE SODIUM 100 MG CAPSULE PO SCH ×2 (10:18→18:24)
[2019-02-05] MEDS: LISINOPRIL 5 MG TABLET PO SCH (10:19)
[2019-02-05] MEDS ORDERED: LORAZEPAM 1 MG TABLET PO PRN (11:00)
[2019-02-05 11:30] LABS: CREATINE KINASE MB < 0.22 ng/mL (<4.55); TROPONIN I < 0.012 ng/mL
--- NOTE | 2019-02-05 13:47 | PDOC PROGRESS REPORT ---
Subjective Progress Note for:: 02/05/19 Subjective:: Patient was admitted through the emergency room yesterday for an acute syncopal episode patient also complained of some left arm and left leg numbness. Patient states she has had over 6 different TIA episodes in the past. CT scan in the emergency room was negative for acute events.. May have been some stress involved because patient was outside digging a grave for her pet syncope occurred Patient has had a CVA approximately 6 years ago. Reason For Visit: SYNCOPAL EPISODE,NEW LEFT ARM NUMBNESS Physical Exam Vital Signs: Temp Pulse Resp BP Pulse Ox 98.3 F 75 18 108/67 96 02/05/19 11:07 02/05/19 11:07 02/05/19 11:07 02/05/19 11:07 02/05/19 11:07 Intake & Output 02/04/19 02/05/19 02/06/19 06:59 06:59 06:59 Intake Total 103 687 Output Total 300 Balance -197 687 Weight 108.4 kg General appearance: PRESENT: no acute distress Respiratory exam: PRESENT: clear to auscultation jean. ABSENT: rales, rhonchi, wheezes Cardiovascular exam: PRESENT: RRR. ABSENT: diastolic murmur, rubs, systolic murmur Pulses: PRESENT: normal dorsalis pedis pul Neurological exam: PRESENT: alert, awake, oriented to person, oriented to place, oriented to time, oriented to situation, CN II-XII grossly intact, other. ABSENT: motor sensory deficit - Patient's left electrolytic de scaler strength may be slightly less than the right, patient has no hard focal findings Psychiatric exam: PRESENT: anxious - Patient is anxious and is asked for something to take prior to her MRI scan, appropriate affect, normal mood. ABSENT: homicidal ideation, suicidal ideation Results Laboratory Results: 02/04/19 22:48 02/04/19 22:48 02/04/19 02/04/19 02/04/19 22:48 22:48 22:48 WBC 9.6 RBC 4.54 Hgb 14.0 Hct 40.7 MCV 90 MCH 30.9 MCHC 34.5 RDW 13.8 Plt Count 132 L Seg Neutrophils % 68.5 Sodium 136.2 L Potassium 3.7 Chloride 100 Carbon Dioxide 28 Anion Gap 8 BUN 8 Creatinine 0.69 Est GFR ( Amer) > 60 Glucose 228 H Calcium 8.8 Total Bilirubin 0.6 AST 31 Alkaline Phosphatase 99 Total Protein 6.8 Albumin 3.9 Triglycerides Cholesterol LDL Cholesterol Direct VLDL Cholesterol HDL Cholesterol TSH 1.28 Free T4 0.91 Free T3 pg/mL 2.99 Urine Color Urine Appearance Urine pH Ur Specific [place] Urine Protein Urine Glucose (UA) Urine Ketones Urine Blood Urine Nitrite Ur Leukocyte Esterase Urine WBC (Auto) Urine RBC (Auto) 02/04/19 02/05/19 23:50 04:49 WBC RBC Hgb Hct MCV MCH MCHC RDW Plt Count Seg Neutrophils % Sodium Potassium Chloride Carbon Dioxide Anion Gap BUN Creatinine Est GFR ( Amer) Glucose Calcium Total Bilirubin AST Alkaline Phosphatase Total Protein Albumin Triglycerides 166 H Cholesterol 142.21 LDL Cholesterol Direct 96 VLDL Cholesterol 33.2 H HDL Cholesterol 33 L TSH Free T4 Free T3 pg/mL Urine Color STRAW Urine Appearance CLEAR Urine pH 7.0 Ur Specific [place] 1.002 Urine Protein NEGATIVE Urine Glucose (UA) NEGATIVE Urine Ketones NEGATIVE Urine Blood NEGATIVE Urine Nitrite NEGATIVE Ur Leukocyte Esterase NEGATIVE Urine WBC (Auto) 1 Urine RBC (Auto) 0 02/04/19 02/04/19 02/04/19 22:48 22:48 22:48 Creatine Kinase 68 CK-MB (CK-2) 0.35 Troponin I < 0.012 Cancelled 02/05/19 02/05/19 02/05/19 04:49 04:49 10:26 Creatine Kinase 53 48 CK-MB (CK-2) 0.23 Troponin I < 0.012 02/05/19 10:26 Creatine Kinase CK-MB (CK-2) < 0.22 Troponin I < 0.012 Impressions: Chest X-Ray 02/04/19 22:44 IMPRESSION: Negative chest copyright 2010 [employer]- All Rights Reserved Head CT 02/04/19 22:44 IMPRESSION: No acute intracranial abnormality TECHNICAL DOCUMENTATION: Quality ID # 436: Final reports with documentation of one or more dose reduction techniques (e.g., Automated exposure control, adjustment of the mA and/or kV according to patient size, use of iterative reconstruction technique) copyright 2010 [employer]- All Rights Reserved Assessment and Plan - Diagnosis (1) Left arm numbness Is this a current diagnosis for this admission?: Yes Plan: Patient will have close observation on IMCU. Patient will additionally have an MRI of the brain, a carotid Doppler study and an echocardiogram performed to evaluate her syncope and her acute neurologic changes. 02/05/2019 patient is still complaining of some actually dysesthesias left upper extremity. I have ordered carotid Dopplers MRI of the brain and will order an echo as well. I do not feel that the patient is having an acute neurologic event however (2) Syncope Qualifiers: Syncope type: unspecified Qualified Code(s): R55 - Syncope and collapse Is this a current diagnosis for this admission?: Yes (3) Acute CVA (cerebrovascular accident) Is this a current diagnosis for this admission?: Yes Plan: Patient has no hard focal deficits, initial CT head scan was negative for stroke Patient reports that she has had 6 separate TIA events since her CVA 6 years ago. Patiently currently takes aspirin daily as well as a patent. May want to add Plavix or dipyridamole (4) Morbid obesity Is this a current diagnosis for this admission?: Yes Plan: Weight is approximately 108 kg. (5) TIA (transient ischemic attack) Is this a current diagnosis for this admission?: Yes Plan: It is unknown if this is an actual TIA. Patient was performing a stressful event the burial of her dog, at the time of this event patient reports having had these in the past. Patient is currently on heparin for prophylaxis DVT - Time Time Spent with patient: 25-34 minutes
--- NOTE | 2019-02-05 13:48 | Progress Note Acknowledgement ---
Progress Note Acknowledgement Progess Note Acknowledgement: I, the undersigned member of the medical staff with appropriate privileges and with supervisory authority over [ PAC], a dependent practice allied health professional, acknowledge that I have reviewed the progress notes entered on this patient, and in my professional judgment believe that the assessment made and/or any care evidenced was appropriate
--- NOTE | 2019-02-05 15:36 | RADIOLOGY REPORT (SQ) ---
EXAM DESCRIPTION: MRI HEAD WITHOUT COMPLETED DATE/TIME: 02/05/2019 3:22 pm REASON FOR STUDY: syncope, left sided weakness COMPARISON: 06/07/2017, 02/04/2019 TECHNIQUE: Multiplanar imaging includes non-contrasted T1, T2, FLAIR, and diffusion with ADC map seq uences. Images stored on PACS. LIMITATIONS: Motion artifact. FINDINGS: ANATOMY: No anomalies. Normal vascular flow voids. Pituitary fossa normal. CSF SPACES: Normal in size and contour. No hemorrhage. CEREBRUM: Sulci and gyri normal in size and contour. Minimal scattered nonspecific areas of perivent ricular subcortical T2 signal prolongation noted on FLAIR imaging, likely sequelae of microangiopathi c disease and stable compared MRI. No evidence of hemorrhage, mass, or extraaxial fluid collection. POSTERIOR FOSSA: No signal alteration. No hemorrhage. No edema, masses or mass effect. Internal ly tory canals, cerebello-pontine angles, mastoids normal. DIFFUSION IMAGING: Negative for acute or sub-acute infarction. ORBITS: No masses. Globes normal. PARANASAL SINUSES: No fluid levels. Mucosa normal. OTHER: No other significant finding. IMPRESSION: No evidence of acute infarct or other intracranial abnormality. EVIDENCE OF ACUTE STROKE: NO. TECHNICAL DOCUMENTATION: JOB ID: [id number] [employer]- All Rights Reserved Reading location - IP/workstation name: [email or web address]
[2019-02-05] MEDS: NYSTATIN TOPICAL POWDER 15 GM TP PRN (20:40)
[2019-02-05] MEDS: TRAMADOL HCL 50 MG TABLET PO PRN (21:42)
[2019-02-05] MEDS ORDERED: ATORVASTATIN CALCIUM 20 MG TABLET PO SCH (22:00)
[2019-02-05] MEDS: TRAZODONE HCL 50 MG TABLET PO PRN (22:03)
[2019-02-06 04:52] LABS: HEMATOCRIT 38.6 % (36.0-47.0); MEAN CORPUSCULAR HEMOGLOBIN 30.6 pg (27.0-33.4); MEAN CORPUSCULAR HGB CONC 33.7 g/dL (32.0-36.0); MEAN CORPUSCULAR VOLUME 91 fl (80-97); PLATELET COUNT 124 10^3/uL (150-450); RED BLOOD COUNT 4.26 10^6/uL (3.72-5.28); RED CELL DISTRIBUTION WIDTH 13.6 % (11.5-14.0); WHITE BLOOD COUNT 9.1 10^3/uL (4.0-10.5)
[2019-02-06 05:13] LABS: ANION GAP 6 (5-19); BLOOD UREA NITROGEN 10 mg/dL (7-20); CALCIUM 8.7 mg/dL (8.4-10.2); CARBON DIOXIDE 27 mmol/L (22-30); CHLORIDE 105 mmol/L (98-107); GLUCOSE 160 mg/dL (75-110)
[2019-02-06] MEDS: BUSPIRONE HCL 10 MG TABLET PO SCH ×3 (05:50→21:49)
[2019-02-06] MEDS: HEPARIN SOD (PORCINE) 5,000 UNIT/ML 1 ML VIAL SUBCUT SCH ×3 (05:50→22:56)
[2019-02-06] MEDS: INSULIN LISPRO 100 UNIT/ML 3 ML VIAL SUBCUT SCH ×4 (07:31→21:43)
[2019-02-06] MEDS: METFORMIN HCL 500 MG TABLET PO SCH ×2 (07:31→16:47)
--- NOTE | 2019-02-06 08:28 | RADIOLOGY REPORT (SQ) ---
EXAM DESCRIPTION: CAROTID DOPPLER COMPLETED DATE/TIME: 02/05/2019 7:31 pm REASON FOR STUDY: syncope, left sided weakness COMPARISON: 06/07/2017 TECHNIQUE: Grayscale ultrasound, Doppler velocity and spectra, and color Doppler images acquired of the extra-cranial carotid and vertebral arteries. Images stored on PACS. LIMITATIONS: None. FINDINGS: RIGHT CAROTID CCA Velocities: Within normal limits. ICA Velocities Peak systolic 93 cm/s. End diastolic 25 cm/s. Proximal ICA/CCA peak systolic ratio 1.5. Normal spectral waveform. Grayscale evaluation demonstrates no significant luminal stenosis. LEFT CAROTID CCA Velocities: Within normal limits. ICA Velocities Peak systolic 100 cm/s. End diastolic 12 cm/s. Proximal ICA/CCA peak systolic ratio 1.3. Normal spectral waveform. Grayscale evaluation demonstrates minimal eccentric heterogeneous plaque w ithout significant stenosis. VERTEBRAL ARTERIES: Antegrade flow. Normal waveforms. SUBCLAVIAN ARTERIES: Not imaged. OTHER: No other significant finding. IMPRESSION: NO HEMODYNAMICALLY SIGNIFICANT STENOSIS. COMMENT: Quality ID #195: Velocity criteria are extrapolated from the diameter data as defined by t he Society of Radiologists in Ultrasound Consensus Conference. Radiology 2003: 229; 340-346. TECHNICAL DOCUMENTATION: JOB ID: [id number] [employer]- All Rights Reserved Reading location - IP/workstation name: [email or web address]
[2019-02-06] MEDS: DOCUSATE SODIUM 100 MG CAPSULE PO SCH ×2 (09:35→17:05)
[2019-02-06] MEDS: FAMOTIDINE 20 MG TABLET PO SCH ×2 (09:36→21:49)
[2019-02-06] MEDS ORDERED: (PENDING PHARMACY ID) (Metformin Hcl [Metformin Hcl] 1,000 MG) PO SCH (10:00)
[2019-02-06] MEDS: LISINOPRIL 5 MG TABLET PO SCH (11:25)
[2019-02-06] MEDS: ASPIRIN 325 MG TABLET PO SCH (11:25)
[2019-02-06] MEDS: VERAPAMIL HCL 120 MG TABLET.SA PO SCH (11:26)
[2019-02-06] MEDS ORDERED: TRIAMTERENE/HYDROCHLOROTHIAZID 75-50 MG TABLET PO SCH (12:00)
[2019-02-06] MEDS: GABAPENTIN 300 MG CAPSULE PO SCH ×2 (13:16→21:49)
[2019-02-06] MEDS: PREGABALIN 75 MG CAPSULE PO SCH ×2 (13:16→21:53)
--- NOTE | 2019-02-06 13:56 | PDOC PROGRESS REPORT ---
Subjective Progress Note for:: 02/06/19 Subjective:: This is a 48 years old female patient with past medical history of type 2 diabetes mellitus, history of ischemic stroke with residual left-sided weakness, coronary artery disease, hyperlipidemia, hypertension, morbid obesity reports to ER after she passed out while she was digging a grave for her dog. Her blood work is unremarkable her CT head and MRI of the brain are negative for acute CVA. This morning I seen patient resting in bed comfortably she is awake alert oriented. Surgical examination she has mild weakness on the left side most probably it is from her previous stroke. Reason For Visit: SYNCOPAL EPISODE,NEW LEFT ARM NUMBNESS Physical Exam Vital Signs: Temp Pulse Resp BP Pulse Ox 98.0 F 64 18 99/51 L 97 02/06/19 07:38 02/06/19 08:00 02/06/19 08:00 02/06/19 08:00 02/06/19 08:00 Intake & Output 02/05/19 02/06/19 02/07/19 06:59 06:59 06:59 Intake Total 103 1017 Output Total 300 750 Balance -197 267 Weight 108.4 kg 109.1 kg Results Laboratory Results: 02/06/19 04:26 02/06/19 04:26 02/06/19 02/06/19 04:26 04:26 WBC 9.1 RBC 4.26 Hgb 13.0 Hct 38.6 MCV 91 MCH 30.6 MCHC 33.7 RDW 13.6 Plt Count 124 L Sodium 138.3 Potassium 4.0 Chloride 105 Carbon Dioxide 27 Anion Gap 6 BUN 10 Creatinine 0.67 Est GFR ( Amer) > 60 Glucose 160 H Calcium 8.7 Magnesium 1.7 02/04/19 02/04/19 02/04/19 22:48 22:48 22:48 Creatine Kinase 68 CK-MB (CK-2) 0.35 Troponin I < 0.012 Cancelled 02/05/19 02/05/19 02/05/19 04:49 04:49 10:26 Creatine Kinase 53 48 CK-MB (CK-2) 0.23 Troponin I < 0.012 02/05/19 10:26 Creatine Kinase CK-MB (CK-2) < 0.22 Troponin I < 0.012 Impressions: Chest X-Ray 02/04/19 22:44 IMPRESSION: Negative chest copyright 2010 [employer]- All Rights Reserved Head CT 02/04/19 22:44 IMPRESSION: No acute intracranial abnormality TECHNICAL DOCUMENTATION: Quality ID # 436: Final reports with documentation of one or more dose reduction techniques (e.g., Automated exposure control, adjustment of the mA and/or kV according to patient size, use of iterative reconstruction technique) copyright 2010 [employer]- All Rights Reserved Carotid Doppler Study 02/05/19 09:23 IMPRESSION: NO HEMODYNAMICALLY SIGNIFICANT STENOSIS. Head MRI 02/05/19 09:24 IMPRESSION: No evidence of acute infarct or other intracranial abnormality. EVIDENCE OF ACUTE STROKE: NO. Assessment and Plan - Diagnosis (1) Syncope Is this a current diagnosis for this admission?: Yes Plan: May be vasovagal attack. (2) Hypertension Qualifiers: Hypertension type: essential hypertension Qualified Code(s): I10 - Essential (primary) hypertension Is this a current diagnosis for this admission?: Yes Plan: Continue home medication (3) Coronary artery disease Qualifiers: Associated angina: without angina Is this a current diagnosis for this admission?: Yes Plan: No anginal symptoms. (4) Type 2 diabetes mellitus Is this a current diagnosis for this admission?: Yes Plan: Continue home medication and sliding scale. (5) Bipolar disorder Is this a current diagnosis for this admission?: Yes Plan: Continue her home medication. (6) Tobacco dependence Is this a current diagnosis for this admission?: Yes Plan: Patient counseled and encouraged to quit smoking.
[2019-02-06] MEDS ORDERED: (PENDING PHARMACY ID) (Desvenlafaxine Succinate [Pristiq] 50 MG) PO SCH (18:00)
[2019-02-06] MEDS: TRAMADOL HCL 50 MG TABLET PO PRN (21:48)
[2019-02-06] MEDS: TRAZODONE HCL 50 MG TABLET PO PRN (21:49)
[2019-02-06] MEDS: NYSTATIN TOPICAL POWDER 15 GM TP PRN (21:54)
[2019-02-06] MEDS ORDERED: ATORVASTATIN CALCIUM 40 MG TABLET PO SCH (22:00)
[2019-02-07 05:04] LABS: HEMATOCRIT 40.6 % (36.0-47.0); HEMOGLOBIN 13.8 g/dL (12.0-15.5); MEAN CORPUSCULAR HEMOGLOBIN 30.5 pg (27.0-33.4); MEAN CORPUSCULAR HGB CONC 34.1 g/dL (32.0-36.0); MEAN CORPUSCULAR VOLUME 90 fl (80-97); PLATELET COUNT 117 10^3/uL (150-450); RED BLOOD COUNT 4.53 10^6/uL (3.72-5.28); RED CELL DISTRIBUTION WIDTH 13.5 % (11.5-14.0); WHITE BLOOD COUNT 7.6 10^3/uL (4.0-10.5)
[2019-02-07] MEDS: GABAPENTIN 300 MG CAPSULE PO SCH (05:21)
[2019-02-07] MEDS: HEPARIN SOD (PORCINE) 5,000 UNIT/ML 1 ML VIAL SUBCUT SCH (05:21)
[2019-02-07] MEDS: BUSPIRONE HCL 10 MG TABLET PO SCH (05:21)
[2019-02-07] MEDS: PREGABALIN 75 MG CAPSULE PO SCH (05:22)
[2019-02-07 05:23] LABS: ANION GAP 9 (5-19); BLOOD UREA NITROGEN 10 mg/dL (7-20); CALCIUM 9.3 mg/dL (8.4-10.2); CARBON DIOXIDE 27 mmol/L (22-30); CHLORIDE 101 mmol/L (98-107); GLUCOSE 198 mg/dL (75-110); POTASSIUM 3.9 mmol/L (3.6-5.0)
[2019-02-07] MEDS ORDERED: PANTOPRAZOLE SODIUM 40 MG TABLET.DR PO SCH (06:00)
[2019-02-07] MEDS ORDERED: (PENDING PHARMACY ID) (Desvenlafaxine Succinate 100 MG) PO SCH (08:00)
[2019-02-07] MEDS: METFORMIN HCL 500 MG TABLET PO SCH (09:31)
[2019-02-07] MEDS: ASPIRIN 325 MG TABLET PO SCH (09:31)
[2019-02-07] MEDS: LISINOPRIL 5 MG TABLET PO SCH (09:31)
[2019-02-07] MEDS: VERAPAMIL HCL 120 MG TABLET.SA PO SCH (09:31)
[2019-02-07] MEDS: FAMOTIDINE 20 MG TABLET PO SCH (09:31)
[2019-02-07] MEDS: INSULIN LISPRO 100 UNIT/ML 3 ML VIAL SUBCUT SCH (09:31)
[2019-02-07] MEDS: DOCUSATE SODIUM 100 MG CAPSULE PO SCH (09:31)
--- NOTE | 2019-02-07 10:48 | PDOC DISCHARGE SUMMARY ---
General - Admit/Disc Date/PCP Admission Date/Primary Care Provider: 02/05/19 00:58 MARYELLEN ZARATE MD Discharge Date: 02/07/19 - Discharge Diagnosis (1) Syncope Is this a current diagnosis for this admission?: Yes (2) Hypertension Is this a current diagnosis for this admission?: Yes (3) Coronary artery disease Is this a current diagnosis for this admission?: Yes (4) Type 2 diabetes mellitus Is this a current diagnosis for this admission?: Yes (5) Bipolar disorder Is this a current diagnosis for this admission?: Yes (6) Tobacco dependence Is this a current diagnosis for this admission?: Yes - Additional Information Resuscitation Status: Full Code Home Medications: Metformin HCl 1,000 mg PO BID 03/22/12 Aspirin [Aspirin 325 mg Tablet] 325 mg PO DAILY 02/05/19 Atorvastatin Calcium [Lipitor 40 mg Tablet] 40 mg PO QHS 02/05/19 Desvenlafaxine Succinate [Pristiq ER 100 mg Tab.sr] 100 mg PO QAM 02/05/19 Desvenlafaxine Succinate [Pristiq ER] 50 mg PO QPM 02/05/19 Gabapentin [Neurontin 300 mg Capsule] 300 mg PO Q8 02/05/19 Omeprazole 40 mg PO DAILY 02/05/19 Pregabalin [Lyrica] 150 mg PO TID 02/05/19 Triamterene/Hydrochlorothiazid [Maxzide 75 mg-50 mg Tablet] 1 each PO DAILY 02/05/19 History of Present Illness History of Present Illness: MELISSA NAGEL is a 48 year old female presented to the emergency room with an acute syncopal episode. She admits that while she was outside digging a grave to bury her dog she collapsed to a sitting position leaning over to the ground one side and was unresponsive when family members found her. EMS was summoned and she was awakened with ammonia stimulation after a period of approximately 5 minutes of unresponsiveness. After she recovered consciousness she complained of numbness in her left arm and leg which is the only new symptom she has noticed. She is amnestic for her time unconsciousness. She has a history of a prior stroke with a mild chronic left hemiplegia and did develop a headache during her emergency room course. She denies other associated or accompanying signs and symptoms. She admits some similar episodes in the past with TIAs/strokes. She has not identified any aggravating or ameliorating factors for her syncopal episode. In the emergency room she was found to have a CT scan that showed no acute intracranial process and her laboratory evaluation was essentially unremarkable. She was subsequently admitted to the hospital for further evaluation and treatment. Hospital Course Hospital Course: This is a 48 years old female patient with past medical history of type 2 diabetes mellitus, history of ischemic stroke with residual left-sided weakness, coronary artery disease, hyperlipidemia, hypertension, morbid obesity reports to ER after she passed out while she was digging a grave for her dog. Her blood work is unremarkable her CT head and MRI of the brain are negative for acute CVA. This morning I seen patient resting in bed comfortably she is awake alert oriented. Surgical examination she has mild weakness on the left side most probably it is from her previous stroke. 02/07/2019: Patient seen resting in bed comfortably and chatting with her boyfriend who is in the room during my encounter. She is awake alert oriented. She is not in pain or distress. Her vitals and blood works are unremarkable. Patient stable enough to go home today. I will continue all her home medications and I will send her also with lisinopril and carvedilol and she is advised to follow-up with her primary care physician. Physical Exam Vital Signs: Temp Pulse Resp BP Pulse Ox 98.0 F 61 20 126/73 H 96 02/07/19 03:38 02/07/19 07:00 02/07/19 03:59 02/07/19 03:59 02/07/19 03:59 Intake & Output 02/06/19 02/07/19 02/08/19 06:59 06:59 06:59 Intake Total 1017 1360 Output Total 750 1800 Balance 267 -440 Weight 109.1 kg 107.6 kg General appearance: PRESENT: no acute distress Head exam: PRESENT: atraumatic Eye exam: PRESENT: conjunctiva pink Mouth exam: PRESENT: moist Neck exam: ABSENT: carotid bruit, JVD, lymphadenopathy, thyromegaly Respiratory exam: PRESENT: clear to auscultation jean. ABSENT: rales, rhonchi, wheezes Cardiovascular exam: PRESENT: RRR. ABSENT: diastolic murmur, rubs, systolic murmur GI/Abdominal exam: PRESENT: normal bowel sounds, soft. ABSENT: distended, guarding, mass, organolmegaly, rebound, tenderness Neurological exam: PRESENT: alert, awake, oriented to person, oriented to place, oriented to time, oriented to situation Results Laboratory Results: 02/07/19 04:29 02/07/19 04:29 02/07/19 02/07/19 04:29 04:29 WBC 7.6 RBC 4.53 Hgb 13.8 Hct 40.6 MCV 90 MCH 30.5 MCHC 34.1 RDW 13.5 Plt Count 117 L Sodium 136.8 L Potassium 3.9 Chloride 101 Carbon Dioxide 27 Anion Gap 9 BUN 10 Creatinine 0.67 Est GFR ( Amer) > 60 Glucose 198 H Calcium 9.3 Magnesium 1.7 02/04/19 02/04/19 02/04/19 22:48 22:48 22:48 Creatine Kinase 68 CK-MB (CK-2) 0.35 Troponin I < 0.012 Cancelled 02/05/19 02/05/19 02/05/19 04:49 04:49 10:26 Creatine Kinase 53 48 CK-MB (CK-2) 0.23 Troponin I < 0.012 02/05/19 10:26 Creatine Kinase CK-MB (CK-2) < 0.22 Troponin I < 0.012 Impressions: Chest X-Ray 02/04/19 22:44 IMPRESSION: Negative chest copyright 2010 [employer]- All Rights Reserved Head CT 02/04/19 22:44 IMPRESSION: No acute intracranial abnormality TECHNICAL DOCUMENTATION: Quality ID # 436: Final reports with documentation of one or more dose reduction techniques (e.g., Automated exposure control, adjustment of the mA and/or kV according to patient size, use of iterative reconstruction technique) copyright 2010 [employer]- All Rights Reserved Carotid Doppler Study 02/05/19 09:23 IMPRESSION: NO HEMODYNAMICALLY SIGNIFICANT STENOSIS. Head MRI 02/05/19 09:24 IMPRESSION: No evidence of acute infarct or other intracranial abnormality. EVIDENCE OF ACUTE STROKE: NO. Qualifiers - * PATIENT BEING DISCHARGED WITH ANY OF THE FOLLOWING DIAGNOSIS: No Acute Heart Failure - Is this a Heart Failure Patient?: No LVEF < 40%?: No- if no continue to question #3 e) For LVEF <35%, discharged on Aldosterone antagonist?: N/A (LVEF > or = 35%)
[2019-02-07 11:15] VITALS: BP 127/73
== END 2019-02-07 11:50 | disposition home or self-care (01) | DRG 312 ==
LOC: ER 22:28 → EH 02-05 00:58 → 3N 02-05 02:30
PROVIDERS: ADMIT Emergency Medicine; ATTEND Emergency Medicine
DX: R55 Syncope and collapse (principal); I69.354 Hemiplegia and hemiparesis following cerebral infarction affecting left non-dominant side; I10 Essential (primary) hypertension; E11.9 Type 2 diabetes mellitus without complications; F31.9 Bipolar disorder, unspecified; F17.210 Nicotine dependence, cigarettes, uncomplicated; E78.5 Hyperlipidemia, unspecified; E66.01 Morbid (severe) obesity due to excess calories; I25.10 Atherosclerotic heart disease of native coronary artery without angina pectoris; F41.1 Generalized anxiety disorder; R29.703 NIHSS score 3; I25.2 Old myocardial infarction; Z79.899 Other long term (current) drug therapy; Z79.84 Long term (current) use of oral hypoglycemic drugs; Z79.82 Long term (current) use of aspirin; Z79.4 Long term (current) use of insulin; Z88.8 Allergy status to other drugs, medicaments and biological substances; Z91.02 Food additives allergy status; Z83.3 Family history of diabetes mellitus
CPT/HCPCS: 36415; 70450; 70551; 71045; 80048; 80053; 80061; 81001; 82550; 82553; 82962; 83036; 83735; 84439; 84443; 84481; 84484; 85025; 85027; 85610; 85730; 93880; 99285; J1644; J1815; J3490; J7120

== ENCOUNTER 2019-03-29 01:54 | Emergency (ER) | payer MEDICARE, MEDICAID ==
[2019-03-29 02:43] LABS: ABSOLUTE EOSINOPHILS # (AUTO) 0.2 10^3/uL (0.0-0.6); ABSOLUTE LYMPHOCYTES (AUTO) 3.2 10^3/uL (0.5-4.7); ABSOLUTE MONOCYTES (AUTO) 0.4 10^3/uL (0.1-1.4); BASOPHILS % (AUTO) 0.5 % (0-2); EOSINOPHILS % (AUTO) 2.4 % (0-6); HEMATOCRIT 41.8 % (36.0-47.0); HEMOGLOBIN 14.1 g/dL (12.0-15.5); LYMPHOCYTES % (AUTO) 32.1 % (13-45); MEAN CORPUSCULAR HEMOGLOBIN 30.6 pg (27.0-33.4); MEAN CORPUSCULAR HGB CONC 33.9 g/dL (32.0-36.0); MEAN CORPUSCULAR VOLUME 91 fl (80-97); MONOCYTES % (AUTO) 4.1 % (3-13); PLATELET COUNT 173 10^3/uL (150-450); RED BLOOD COUNT 4.61 10^6/uL (3.72-5.28); RED CELL DISTRIBUTION WIDTH 13.8 % (11.5-14.0); SEGMENTED NEUTROPHILS % (AUTO) 60.9 % (42-78); TOTAL CELLS COUNTED % (AUTO) 100 %; WHITE BLOOD COUNT 9.9 10^3/uL (4.0-10.5)
--- NOTE | 2019-03-29 02:46 | RADIOLOGY REPORT (SQ) ---
EXAM DESCRIPTION: X-ray single view chest. CLINICAL HISTORY: 48 years Female, SOB COMPARISON: 02/04/2019 TECHNIQUE: Single portable x-ray view of the chest performed on 03/29/2019 at 2:29 AM FINDINGS: The lungs are well expanded and are clear. There is no evidence of a pneumothorax. The cardiac silhouette is normal in size and configuration. The mediastinal contours are normal. No acute osseous abnormality is identified. There is mild degenerative spondylosis of the thoracic spine. No focal soft tissue abnormalities are seen. Lines and tubes: None. IMPRESSION: No evidence of acute intrathoracic disease.
[2019-03-29] MEDS ORDERED: IPRATROPIUM/ALBUTEROL 0.5-2.5 MG/3 ML AMPUL NEB ONE (02:51)
[2019-03-29 02:53] LABS: ALBUMIN 3.9 g/dL (3.5-5.0); ALKALINE PHOSPHATASE 104 U/L (38-126); ANION GAP 10 (5-19); ASPARTATE AMINO TRANSFERASE 19 U/L (14-36); BILIRUBIN,DIRECT 0.2 mg/dL (0.0-0.4); BILIRUBIN,TOTAL 0.4 mg/dL (0.2-1.3); BLOOD UREA NITROGEN 9 mg/dL (7-20); CALCIUM 9.8 mg/dL (8.4-10.2); CARBON DIOXIDE 29 mmol/L (22-30); CHLORIDE 100 mmol/L (98-107); GLUCOSE 312 mg/dL (75-110); POTASSIUM 4.1 mmol/L (3.6-5.0); TOTAL PROTEIN 6.9 g/dL (6.3-8.2)
[2019-03-29] MEDS: MAGNESIUM SULFATE/D5W 1 GM/100 ML RTUPB IV SCH ×2 (03:11→04:47)
[2019-03-29 03:38] LABS: APPEARANCE,URINE CLEAR; BILIRUBIN,URINE NEGATIVE (NEGATIVE); COLOR,URINE YELLOW; GLUCOSE, URINE >=500 mg/dL (NEGATIVE); KETONES,URINE TRACE mg/dL (NEGATIVE); LEUKOCYTE ESTERASE,URINE NEGATIVE (NEGATIVE); NITRITE,URINE NEGATIVE (NEGATIVE); PROTEIN,URINE NEGATIVE (NEGATIVE); URINE SPECIFIC GRAVITY 1.021
[2019-03-29 03:53] LABS: VENOUS BLOOD BASE EXCESS 1.2 mmol/L; VENOUS BLOOD HCO3 26.3 mmol/L (20-32); VENOUS BLOOD PCO2 43.3 mmHg (35-63); VENOUS BLOOD PH 7.4 (7.30-7.42)
[2019-03-29] MEDS ORDERED: NORMAL SALINE 1000 ML 1,000 ML IV ONE (04:05)
[2019-03-29] MEDS ORDERED: KETOROLAC TROMETHAMINE INJ/PF 30 MG/1 ML SDV IV ONE (05:32)
--- NOTE | 2019-03-29 05:32 | ER Document Report ---
ED Respiratory Problem - General Chief Complaint: Breathing Difficulty Stated Complaint: DIFFICULTY BREATHING Time Seen by Provider: 03/29/19 02:21 Primary Care Provider: MARYELLEN ZARATE MD [Primary Care Provider] - Follow up as needed Notes: Patient is a 48-year-old female history of asthma and COPD presents to the emergency department for respiratory distress. Patient voices she has had a generalized cough and congestion for the last week. States tonight she also felt as though she had a subjective fever. Patient voices she was coughing "so hard I could not sleep." Patient's complaining of bilateral lower rib pain mid axillary region when she coughs. Patient's denying any chest pain. Patient is denying any abdominal pain, nausea, vomiting, dysuria. Patient was presented to the emergency department via EMS. She did have a room air oxygen saturation of 90% though was up to 98% with one albuterol treatment per EMS. EMS also gave the patient 4 mg of IV Zofran. Patient voices she was not nauseated but feels as though she "coughs so hard I throw up." TRAVEL OUTSIDE OF THE [place] IN LAST 30 DAYS: No - Related Data Allergies/Adverse Reactions: prednisone [Prednisone] Allergy (Severe, Verified 08/01/17 14:25) Hives red dye [Red Dye] Allergy (Severe, Verified 08/01/17 14:25) Hives Past Medical History - General Information source: Patient - Social History Smoking Status: Current Every Day Smoker Chew tobacco use (# tins/day): No Frequency of alcohol use: None Drug Abuse: None Family History: DM. denies: CAD, Hypertension, Malignancy Patient has suicidal ideation: No Patient has homicidal ideation: No - Past Medical History Cardiac Medical History: Reports: Hx Coronary Artery Disease, Hx Hypercholesterolemia, Hx Hypertension Denies: Hx Atrial Fibrillation, Hx Congestive Heart Failure, Hx DVT, Hx Heart Attack, Hx Pulmonary Embolism Pulmonary Medical History: Reports: Hx Asthma, Hx Bronchitis, Hx Pneumonia Denies: Hx COPD, Hx Tuberculosis Neurological Medical History: Reports: Hx Cerebrovascular Accident - 2012, L side seakness TIA x7 (most recent 2016). Denies: Hx Seizures Endocrine Medical History: Reports: Hx Diabetes Mellitus Type 2. Denies: Hx Diabetes Mellitus Type 1, Hx Hyperthyroidism, Hx Hypothyroidism Renal/ Medical History: Denies: Hx Peritoneal Dialysis GI Medical History: Denies: Hx Cirrhosis, Hx Crohn's Disease, Hx Hepatitis, Hx Ulcerative Colitis Musculoskeletal Medical History: Reports Hx Arthritis - generalized, Denies Hx Fibromyalgia, Denies Hx Gout Skin Medical History: Denies Hx Eczema, Denies Hx Psoriasis Psychiatric Medical History: Reports: Hx Bipolar Disorder, Hx Depression Infectious Medical History: Denies: Hx Hepatitis Past Surgical History: Reports: Hx Oral Surgery, Hx Orthopedic Surgery - R ankle, Hx Tonsillectomy - Immunizations Hx Diphtheria, Pertussis, Tetanus Vaccination: No Hx Pneumococcal Vaccination: 03/22/14 Review of Systems - Review of Systems Constitutional: Fever EENT: See HPI Cardiovascular: See HPI Respiratory: See HPI Gastrointestinal: No symptoms reported Genitourinary: No symptoms reported Female Genitourinary: No symptoms reported Musculoskeletal: See HPI Skin: No symptoms reported Hematologic/Lymphatic: No symptoms reported Neurological/Psychological: No symptoms reported Physical Exam - Vital signs Vitals: Temp Pulse Resp BP 98.2 F 109 H 16 130/89 H 03/29/19 01:56 03/29/19 01:56 03/29/19 01:56 03/29/19 01:56 - Notes Notes: GENERAL: Alert, interacts well. No acute distress. HEAD: Normocephalic, atraumatic. EYES: Pupils equal, round, and reactive to light. Extraocular movements intact. ENT: Oral mucosa moist, tongue midline. Nares patent, TM's intact, nonerythematous, nonbulging bilaterally. Pharynx within normal limits no palatal petechiae noted. NECK: Full range of motion. Supple. Trachea midline. Lymph adenopathy appreciated LUNGS: Inspiratory and expiratory wheezes to auscultation bilaterally all arias, no no discernible rales, or rhonchi. HEART: Tachycardic rate and rhythm. No murmur ABDOMEN: Morbidly obese, soft, non-tender. Non-distended. Bowel sounds present in all 4 quadrants. EXTREMITIES: Moves all 4 extremities spontaneously. No edema, normal radial and dorsalis pedis pulses bilaterally. No cyanosis. BACK: no cervical, thoracic, lumbar midline tenderness. No saddle anesthesia, normal distal neurovascular exam. NEUROLOGICAL: Alert and oriented x3. Normal speech. cranial nerves II through XII grossly intact. PSYCH: Normal affect, normal mood. SKIN: Warm, dry, normal turgor. No rashes or lesions noted. Course - Re-evaluation Re-evalutation: EKG shows sinus tachycardia rate of 103, QTc 461, no ST elevation depression or elevation noted. 03/29/19 05:28 Pt. was given multiple breathing treatments and upon reassessment states she feels better. Lung sounds are now clear and equal in all arias. Pt. continued to remain tachycardic. She has been treated with fluids in the emergency department. Discussed this could be from the albuterol, this could also be from a pulmonary embolus based on her respiratory distress and tachycardia. D-dimer ordered. D-dimer negative, pts HR came down to 96 upon reassessment. Patient voices she overall does feel a lot better. Patient was able to sleep in the emergency department. She was easily arousable with verbal stimuli. Discussed with her use of albuterol treatments every 4 hours for the next 3 days. Patient voices she is allergic to steroids. We will send her home with [facility]. Pts sugars were noted to be elevated at todays visit. No signs of acidosis via lab work. Patient voices she has not taken her metformin today based on her continued coughing episodes. Patient stable for discharge. - Vital Signs Vital signs: Temp Pulse Resp BP Pulse Ox 98.1 F 111 H 16 75/42 L 96 03/29/19 05:53 03/29/19 05:53 03/29/19 07:32 03/29/19 07:32 03/29/19 07:32 - Laboratory Result Diagrams: 03/29/19 01:40 03/29/19 01:40 Laboratory results interpreted by me: 03/29/19 03/29/19 03/29/19 01:40 01:40 02:45 Glucose 312 H Magnesium 1.5 L Urine Glucose (UA) >=500 H Urine Ketones TRACE H Urine Urobilinogen 2.0 H Discharge - Discharge Clinical Impression: Hyperglycemia Upper respiratory infection Qualifiers: URI type: unspecified viral URI Qualified Code(s): J06.9 - Acute upper respiratory infection, unspecified Asthma Qualifiers: Asthma severity: moderate Asthma persistence: unspecified Asthma complication type: with acute exacerbation Qualified Code(s): J45.901 - Unspecified asthma with (acute) exacerbation Condition: Stable Disposition: HOME, SELF-CARE Instructions: Asthma ([facility]), Hyperglycemia ([facility]), Upper Respiratory Illness ([facility]) Additional Instructions: As I discussed you have been seen and treated in the emergency department for an upper respiratory infection. These are typically caused by viruses and do not need antibiotics. Your chest x-ray reveals no signs of pneumonia. Please make sure you are using your albuterol treatments every 4 hours for the next 3 days. Please also make sure you stay well-hydrated and take medications as prescribed. Please follow-up with your primary care provider in the next 12 to 24 hours. Your blood sugar was also noted to be elevated at today's visit. Please make sure you are taking your medications as prescribed. Return to the emergency room for any concerns. Prescriptions: Albuterol Sulfate [Proair HFA Inhalation Aerosol 8.5 gm MDI] 2 puff IH Q4H PRN #1 mdi PRN Reason: Benzonatate [Tessalon Perles 100 mg Capsule] 100 mg PO ASDIR PRN #40 capsule PRN Reason: Albuterol Sulfate [Ventolin 0.083% Neb 2.5 mg/3 mL Ampul] 1 vial NEB Q4 #60 vial Referrals: MARYELLEN ZARATE MD [Primary Care Provider] - Follow up as needed
[2019-03-29 07:56] VITALS: BP 123/72
--- NOTE | 2019-03-29 09:11 | EKG REPORT ---
SEVERITY:- ABNORMAL ECG - SINUS TACHYCARDIA PROBABLE RIGHT VENTRICULAR HYPERTROPHY : Confirmed by: Leonel Recinos 29-Mar-2019 09:11:03
== END 2019-03-29 07:56 | disposition home or self-care (01) ==
LOC: ER 01:54
DX: J06.9 Acute upper respiratory infection, unspecified (principal); B97.89 Other viral agents as the cause of diseases classified elsewhere; J45.901 Unspecified asthma with (acute) exacerbation; J44.9 Chronic obstructive pulmonary disease, unspecified; E11.65 Type 2 diabetes mellitus with hyperglycemia; Z79.84 Long term (current) use of oral hypoglycemic drugs; R05 Cough; R07.81 Pleurodynia; R50.9 Fever, unspecified; R00.0 Tachycardia, unspecified; F17.200 Nicotine dependence, unspecified, uncomplicated; I25.10 Atherosclerotic heart disease of native coronary artery without angina pectoris; I10 Essential (primary) hypertension; Z88.8 Allergy status to other drugs, medicaments and biological substances; Z91.048 Other nonmedicinal substance allergy status; Z87.01 Personal history of pneumonia (recurrent)
CPT/HCPCS: 93005; 36415; 83735; 85025; 80053; 81001; 85379; 82803; 83880; 71045; 93010; J1885; J3475; J7030; A9270; 94640; 96365; 96366; 96375; 99285; J7620

== ENCOUNTER → 2019-07-13 | Outpatient (CLI) | payer MEDICARE, MEDICAID ==
--- NOTE | 2019-07-13 15:58 | RADIOLOGY REPORT (SQ) ---
EXAM DESCRIPTION: CHEST PA/LATERAL COMPLETED DATE/TIME: 07/13/2019 3:26 pm REASON FOR STUDY: PRE-OP COMPARISON: AP view of the chest from 03/29/2019. EXAM PARAMETERS: NUMBER OF VIEWS: two views TECHNIQUE: PA and lateral views of the chest were obtained. RADIATION DOSE: NA LIMITATIONS: none FINDINGS: LUNGS AND PLEURA: No consolidation, pleural effusion or pneumothorax. MEDIASTINUM AND HILAR STRUCTURES: No mediastinal or hilar contour abnormality. HEART AND VASCULAR STRUCTURES: The cardiac silhouette is borderline enlarged. BONES: No acute findings. HARDWARE: None in the chest. OTHER: No other finding. IMPRESSION: No acute cardiopulmonary process. TECHNICAL DOCUMENTATION: JOB ID: [id number] [employer]- All Rights Reserved Reading location - IP/workstation name: [email or web address]
[2019-07-13 16:10] LABS: ABSOLUTE EOSINOPHILS # (AUTO) 0.2 10^3/uL (0.0-0.6); ABSOLUTE LYMPHOCYTES (AUTO) 2.2 10^3/uL (0.5-4.7); ABSOLUTE MONOCYTES (AUTO) 0.4 10^3/uL (0.1-1.4); BASOPHILS % (AUTO) 0.4 % (0-2); EOSINOPHILS % (AUTO) 2.5 % (0-6); HEMATOCRIT 42.1 % (36.0-47.0); HEMOGLOBIN 14.5 g/dL (12.0-15.5); LYMPHOCYTES % (AUTO) 28.4 % (13-45); MEAN CORPUSCULAR HEMOGLOBIN 31.3 pg (27.0-33.4); MEAN CORPUSCULAR HGB CONC 34.4 g/dL (32.0-36.0); MEAN CORPUSCULAR VOLUME 91 fl (80-97); MONOCYTES % (AUTO) 4.8 % (3-13); PLATELET COUNT 159 10^3/uL (150-450); RED BLOOD COUNT 4.63 10^6/uL (3.72-5.28); SEGMENTED NEUTROPHILS % (AUTO) 63.9 % (42-78); TOTAL CELLS COUNTED % (AUTO) 100 %; WHITE BLOOD COUNT 7.8 10^3/uL (4.0-10.5)
[2019-07-13 16:21] LABS: APPEARANCE,URINE SLIGHTLY-CLOUDY; BILIRUBIN,URINE NEGATIVE (NEGATIVE); COLOR,URINE YELLOW; GLUCOSE, URINE >=500 mg/dL (NEGATIVE); KETONES,URINE NEGATIVE (NEGATIVE); LEUKOCYTE ESTERASE,URINE NEGATIVE (NEGATIVE); NITRITE,URINE NEGATIVE (NEGATIVE); PROTEIN,URINE NEGATIVE (NEGATIVE); URINE SPECIFIC GRAVITY 1.031; UROBILINOGEN,URINE NEGATIVE mg/dL (<2.0)
[2019-07-13 16:32] LABS: ANION GAP 8 (5-19); BLOOD UREA NITROGEN 10 mg/dL (7-20); CALCIUM 9.1 mg/dL (8.4-10.2); CARBON DIOXIDE 29 mmol/L (22-30); CHLORIDE 100 mmol/L (98-107); GLUCOSE 353 mg/dL (75-110); POTASSIUM 4.1 mmol/L (3.6-5.0)
--- NOTE | 2019-07-14 23:26 | EKG REPORT ---
SEVERITY:- ABNORMAL ECG - SINUS RHYTHM PROBABLE RIGHT VENTRICULAR HYPERTROPHY : Confirmed by: Leonel Recinos 14-Jul-2019 23:25:35
== END ==
LOC: OD 14:57
PROVIDERS: ATTEND Orthopaedic Surgery
DX: Z01.810 Encounter for preprocedural cardiovascular examination (principal); Z01.811 Encounter for preprocedural respiratory examination; Z01.812 Encounter for preprocedural laboratory examination; E11.9 Type 2 diabetes mellitus without complications
CPT/HCPCS: 36415; 71046; 80048; 81001; 83036; 85025; 93005; 93010

== ENCOUNTER 2019-07-21 18:24 | Emergency (ER) | payer MEDICARE, MEDICAID ==
[2019-07-21 18:49] LABS: ABSOLUTE BASOPHILS # (AUTO) 0.1 10^3/uL (0.0-0.2); ABSOLUTE EOSINOPHILS # (AUTO) 0.2 10^3/uL (0.0-0.6); ABSOLUTE LYMPHOCYTES (AUTO) 2.1 10^3/uL (0.5-4.7); ABSOLUTE MONOCYTES (AUTO) 0.4 10^3/uL (0.1-1.4); ABSOLUTE NEUT (AUTO) 5.9 10^3/uL (1.7-8.2); BASOPHILS % (AUTO) 0.8 % (0-2); EOSINOPHILS % (AUTO) 1.9 % (0-6); HEMATOCRIT 39.6 % (36.0-47.0); HEMOGLOBIN 13.5 g/dL (12.0-15.5); LYMPHOCYTES % (AUTO) 24.5 % (13-45); MEAN CORPUSCULAR HEMOGLOBIN 31.3 pg (27.0-33.4); MEAN CORPUSCULAR HGB CONC 34.2 g/dL (32.0-36.0); MEAN CORPUSCULAR VOLUME 91 fl (80-97); MONOCYTES % (AUTO) 5.1 % (3-13); PLATELET COUNT 149 10^3/uL (150-450); RED BLOOD COUNT 4.33 10^6/uL (3.72-5.28); RED CELL DISTRIBUTION WIDTH 13.2 % (11.5-14.0); SEGMENTED NEUTROPHILS % (AUTO) 67.7 % (42-78); TOTAL CELLS COUNTED % (AUTO) 100 %; WHITE BLOOD COUNT 8.7 10^3/uL (4.0-10.5)
[2019-07-21 19:04] LABS: ALBUMIN 3.5 g/dL (3.5-5.0); ALKALINE PHOSPHATASE 101 U/L (38-126); ANION GAP 9 (5-19); ASPARTATE AMINO TRANSFERASE 15 U/L (14-36); BILIRUBIN,DIRECT 0.3 mg/dL (0.0-0.4); BILIRUBIN,TOTAL 0.4 mg/dL (0.2-1.3); BLOOD UREA NITROGEN 12 mg/dL (7-20); CARBON DIOXIDE 27 mmol/L (22-30); CHLORIDE 100 mmol/L (98-107); GLUCOSE 387 mg/dL (75-110); TOTAL PROTEIN 6.3 g/dL (6.3-8.2)
[2019-07-21 20:13] LABS: APPEARANCE,URINE CLEAR; BILIRUBIN,URINE NEGATIVE (NEGATIVE); COLOR,URINE STRAW; GLUCOSE, URINE >=500 mg/dL (NEGATIVE); KETONES,URINE NEGATIVE (NEGATIVE); LEUKOCYTE ESTERASE,URINE NEGATIVE (NEGATIVE); NITRITE,URINE NEGATIVE (NEGATIVE); PROTEIN,URINE NEGATIVE (NEGATIVE); URINE SPECIFIC GRAVITY 1.024; UROBILINOGEN,URINE NEGATIVE mg/dL (<2.0)
[2019-07-21] MEDS ORDERED: NORMAL SALINE 1000 ML 1,000 ML IV ONE (20:28)
--- NOTE | 2019-07-21 20:47 | ER Document Report ---
ED General - General Chief Complaint: High Blood Sugar Stated Complaint: BLOOD SUGAR ISSUES Time Seen by Provider: 07/21/19 20:06 Primary Care Provider: MARYELLEN ZARATE MD [Primary Care Provider] - Follow up as needed TRAVEL OUTSIDE OF THE [place] IN LAST 30 DAYS: No - HPI Notes: Patient is a 49-year-old female with a history of type 2 diabetes, hypertension, CAD, bipolar who presents with family with concern that her glucose was in the 400s today. Patient does have an insulin pump and was able to correct it into the upper 300s. Patient states that her A1c at last check recently was at 11. Patient states that she has had some fatigue over the past couple days, but is otherwise eating and drinking without difficulty. She is urinating normally and having normal bowel movements. Her elevated glucose is what brought her in today. She has no other concerns or complaints. No recent illness. She has never been in DKA or HHS. Denies any headache, fever, head injury, neck pain, changes in vision/speech/mentation/hearing, URI, sore throat, chest pain, palpitations, syncope, cough, shortness of breath, wheeze, dyspnea, abdominal pain, nausea/vomiting/diarrhea, urinary retention, dysuria, hematuria, loss of control of bowel or bladder, numbness/tingling, saddle anesthesia, muscle paralysis/weakness, or rash. - Related Data Allergies/Adverse Reactions: prednisone [Prednisone] Allergy (Severe, Verified 08/01/17 14:25) Hives red dye [Red Dye] Allergy (Severe, Verified 08/01/17 14:25) Hives Past Medical History - Social History Smoking Status: Current Every Day Smoker Family History: DM. denies: CAD, Hypertension, Malignancy Patient has suicidal ideation: No Patient has homicidal ideation: No - Past Medical History Cardiac Medical History: Reports: Hx Coronary Artery Disease, Hx Hypercholesterolemia, Hx Hypertension Denies: Hx Atrial Fibrillation, Hx Congestive Heart Failure, Hx DVT, Hx Heart Attack, Hx Pulmonary Embolism Pulmonary Medical History: Reports: Hx Asthma, Hx Bronchitis, Hx Pneumonia Denies: Hx COPD, Hx Tuberculosis Neurological Medical History: Reports: Hx Cerebrovascular Accident - 2012, L side seakness TIA x7 (most recent 2016). Denies: Hx Seizures Endocrine Medical History: Reports: Hx Diabetes Mellitus Type 2. Denies: Hx Diabetes Mellitus Type 1, Hx Hyperthyroidism, Hx Hypothyroidism Renal/ Medical History: Denies: Hx Peritoneal Dialysis GI Medical History: Denies: Hx Cirrhosis, Hx Crohn's Disease, Hx Hepatitis, Hx Ulcerative Colitis Musculoskeletal Medical History: Reports Hx Arthritis - generalized, Denies Hx Fibromyalgia, Denies Hx Gout Skin Medical History: Denies Hx Eczema, Denies Hx Psoriasis Psychiatric Medical History: Reports: Hx Bipolar Disorder, Hx Depression Infectious Medical History: Denies: Hx Hepatitis Past Surgical History: Reports: Hx Oral Surgery, Hx Orthopedic Surgery - R ankle, Hx Tonsillectomy - Immunizations Hx Diphtheria, Pertussis, Tetanus Vaccination: No Hx Pneumococcal Vaccination: 03/22/14 Review of Systems - Review of Systems -: Yes All other systems reviewed and negative Physical Exam - Notes Notes: PHYSICAL EXAMINATION: GENERAL: Well-appearing, well-nourished and in no acute distress. A&Ox4. An swers questions appropriately. HEAD: Atraumatic, normocephalic. EYES: Pupils equal round and reactive to light, extraocular movements intact, sclera anicteric, conjunctiva are normal. ENT: Nares patent and without discharge. oropharynx clear without exudates. No tonsilar hypertrophy or erythema. Moist mucous membranes. NECK: Normal range of motion, supple without lymphadenopathy LUNGS: Breath sounds clear to auscultation bilaterally and equal. No wheezes rales or rhonchi. HEART: Regular rate and rhythm without murmurs, rubs, gallops. ABDOMEN: Soft, nontender, nondistended abdomen. No guarding, no rebound. Normal bowel sounds present. No CVA tenderness bilaterally. Musculoskeletal: FROM to passive/active. Strength 5+/5. Extremities: Trace pitting edema bilateral lower extremities. Peripheral pulses 2+. Capillary refill less than 3 seconds. NEUROLOGICAL: Cranial nerves grossly intact. Normal speech, normal gait. Normal sensory, motor exams PSYCH: Normal mood, normal affect. SKIN: Warm, Dry, normal turgor, no rashes or lesions noted. Course - Re-evaluation Re-evalutation: 07/21/19 20:44 Patient is an afebrile, well-hydrated, 49-year-old female who presents with elevated glucose. Vitals are acceptable without significant tachycardia, tachypnea, hypoxia. PE is otherwise unremarkable. Patient's abdomen is soft and nontender. She is nontoxic-appearing and is tolerating p.o. without dif ficulty. Labs are unremarkable at this time and glucose was at 387. There is no evidence of DKA or HHS. I did thoroughly educate the patient and family on her diabetes as well as her A1c and typical average in the upper 200s of glucose daily. I did educate the patient on her diet as well as exercise. No further work-up warranted at this time. Low suspicion/risk for DKA, HHS, acute abdomen, severe dehydration, or other systemic emergent condition at this time. Patient is aware that her condition can change from initial presentation and she needs to monitor symptoms closely and seek medical attention if any acute changes. Conservative measures otherwise for symptoms. Recheck with your PCM in 3-5 days. Return to the ED with any worsening/concerning symptoms otherwise as reviewed in discharge. Patient is in agreement. - Laboratory Result Diagrams: 07/21/19 18:40 07/21/19 18:40 Laboratory results interpreted by me: 07/21/19 07/21/19 07/21/19 18:40 18:40 19:45 Plt Count 149 L Sodium 135.6 L Glucose 387 H Urine Glucose (UA) >=500 H Discharge - Discharge Clinical Impression: Elevated glucose Condition: Stable Disposition: HOME, SELF-CARE Additional Instructions: Maintain adequate fluid and food intake Take home medications as directed Healthy diet, avoid carbs/sugar Exercise regularly Monitor blood glucose daily and keep a log Monitor symptoms for any acute changes Recheck with your PCM in 3-5 days Consider consult with a dietitian/manager art as well as endocrinology Return to the ED with any worsening symptoms and/or development of fever, headache, chest pain, palpitations, syncope, shortness of breath, trouble breathing, abdominal pain, n/v/d, blood in stool/urine, loss of control of bowel/bladder, urinary retention, muscle weakness/paralysis, numbness/tingling, or other worsening symptoms that are concerning to you. Forms: Smoking Cessation Education Referrals: MARYELLEN ZARATE MD [Primary Care Provider] - Follow up in 3-5 days
[2019-07-21 21:33] VITALS: BP 107/62
== END 2019-07-21 21:33 | disposition home or self-care (01) ==
LOC: ER 18:24
DX: E11.65 Type 2 diabetes mellitus with hyperglycemia (principal); I10 Essential (primary) hypertension; I25.10 Atherosclerotic heart disease of native coronary artery without angina pectoris; F31.9 Bipolar disorder, unspecified; Z88.8 Allergy status to other drugs, medicaments and biological substances; F17.200 Nicotine dependence, unspecified, uncomplicated; J45.909 Unspecified asthma, uncomplicated
CPT/HCPCS: 36415; 80053; 81001; 82962; 85025; 99283

== ENCOUNTER 2019-10-14 20:43 | Emergency (ER) | payer MEDICARE, MEDICAID ==
[2019-10-14] MEDS ORDERED: CEPHALEXIN 500 MG CAPSULE PO ONE (22:45)
[2019-10-14] MEDS ORDERED: SULFAMETHOXAZOLE/TRIMETHOPRIM 800-160 MG TABLET PO ONE (22:45)
[2019-10-14] MEDS ORDERED: MORPHINE SULFATE 10 MG/ML INJ IV ONE (22:46)
[2019-10-14] MEDS ORDERED: ONDANSETRON HCL INJ/PF 4 MG/2 ML SDV IV ONE (22:47)
--- NOTE | 2019-10-14 22:48 | ER Document Report ---
ED Skin Rash/Insect Bite/Abscs - General Chief Complaint: Skin Problem Stated Complaint: LEFT SIDE PAIN Time Seen by Provider: 10/14/19 22:38 Primary Care Provider: MARYELLEN ZARATE MD [Primary Care Provider] - Follow up as needed Notes: Patient is a 49-year-old female with a history of type 1 diabetes on an insulin pump, that comes emergency department for chief complaint of a tender, red, swollen area over her left lateral lower abdomen that has developed over the past 2 days or so. She states that she actually removed her insulin pump from the same area, she has a brand-new pump in her left arm now, however the same area started becoming erythematous, tender, and is worsening over the past day especially. She denies fever, vomiting, or any other complaints. She denies history of MRSA or abscesses, denies history of cellulitis. She denies any other complaints. TRAVEL OUTSIDE OF THE [place] IN LAST 30 DAYS: No - Related Data Allergies/Adverse Reactions: prednisone [Prednisone] Allergy (Severe, Verified 10/14/19 21:12) Hives red dye [Red Dye] Allergy (Severe, Verified 10/14/19 21:12) Hives Past Medical History - General Information source: Patient - Social History Smoking Status: Current Every Day Smoker Frequency of alcohol use: None Drug Abuse: None Lives with: Family Family History: DM. denies: CAD, Hypertension, Malignancy Patient has homicidal ideation: No - Past Medical History Cardiac Medical History: Reports: Hx Coronary Artery Disease, Hx Hypercholesterolemia, Hx Hypertension Denies: Hx Atrial Fibrillation, Hx Congestive Heart Failure, Hx DVT, Hx Heart Attack, Hx Pulmonary Embolism Pulmonary Medical History: Reports: Hx Asthma, Hx Bronchitis, Hx Pneumonia Denies: Hx COPD, Hx Tuberculosis Neurological Medical History: Reports: Hx Cerebrovascular Accident - 2011, L side seakness TIA x7 (most recent 2016). Denies: Hx Seizures Endocrine Medical History: Reports: Hx Diabetes Mellitus Type 2. Denies: Hx Diabetes Mellitus Type 1, Hx Hyperthyroidism, Hx Hypothyroidism Renal/ Medical History: Denies: Hx Peritoneal Dialysis GI Medical History: Denies: Hx Cirrhosis, Hx Crohn's Disease, Hx Hepatitis, Hx Ulcerative Colitis Musculoskeletal Medical History: Reports Hx Arthritis - generalized, Denies Hx Fibromyalgia, Denies Hx Gout Skin Medical History: Denies Hx Eczema, Denies Hx Psoriasis Psychiatric Medical History: Reports: Hx Bipolar Disorder, Hx Depression Infectious Medical History: Denies: Hx Hepatitis Past Surgical History: Reports: Hx Oral Surgery, Hx Orthopedic Surgery - R ankle, Hx Tonsillectomy - Immunizations Hx Diphtheria, Pertussis, Tetanus Vaccination: No Hx Pneumococcal Vaccination: 03/22/14 Review of Systems - Review of Systems Constitutional: No symptoms reported EENT: No symptoms reported Cardiovascular: No symptoms reported Respiratory: No symptoms reported Gastrointestinal: No symptoms reported Genitourinary: No symptoms reported Female Genitourinary: No symptoms reported Musculoskeletal: No symptoms reported Skin: See HPI Hematologic/Lymphatic: No symptoms reported Neurological/Psychological: No symptoms reported Physical Exam - Vital signs Vitals: Temp Pulse Resp BP Pulse Ox 98.2 F 117 H 12 150/100 H 94 10/14/19 20:47 10/14/19 20:47 10/14/19 20:47 10/14/19 20:47 10/14/19 20:47 - Notes Notes: GENERAL: Slightly anxious but not in distress HEAD: Normocephalic, atraumatic. EYES: Pupils equal, round, and reactive to light. Extraocular movements intact. ENT: Oral mucosa moist, tongue midline. Oropharynx unremarkable. Airway patent. NECK: Full range of motion. Supple. Trachea midline. No lymphadenopathy. LUNGS: Clear to auscultation bilaterally, no wheezes, rales, or rhonchi. No respiratory distress. Non-tender chest wall. HEART: Borderline tachycardia, normal rhythm, no murmur ABDOMEN: Soft, non-tender. Non-distended. Bowel sounds present in all 4 quadrants. Over the left lateral lower abdomen there is a indurated, erythematous, tender area but there is no fluctuance or obvious head. There is slight cellulitis around this area as well but there is no streaking away from this. Otherwise unremarkable. GENITOURINARY: Deferred EXTREMITIES: Moves all 4 extremities spontaneously. No edema, normal radial and dorsalis pedis pulses bilaterally. No cyanosis. BACK: no cervical, thoracic, lumbar midline tenderness. No saddle anesthesia, normal distal neurovascular exam. Moves all extremities in full range of motion. NEUROLOGICAL: Alert and oriented x3. Normal speech. Cranial nerves II through XII grossly intact. Strength 5/5 in all extremities. PSYCH: Normal affect, normal mood. SKIN: Warm, dry, normal turgor. No rashes or lesions noted. See abdominal exam Course - Re-evaluation Re-evalutation: Patient with an area over the left lateral abdomen where her insulin pump used to be consistent with LE cellulitis but also some induration suggesting an abscess. CBC unremarkable, chemistry shows hyperglycemia without acidosis, patient initially was tachycardic and anxious but this resolved after discussion and on recheck. No fever. Ultrasound over the area does indicate a drainable abscess. Discussed with patient, I did take a bedside ultrasound into the room, area was cleaned thoroughly, anesthesia provided over the area, and I was able to drain the abscess with purulent drainage. The area was packed because it was slightly large but it did not significantly extend down into the abdomen and remained superficial. Discussed care of the abscess and cellulitis, antibiotics, follow- up, return precautions. Patient states appreciation and agreement. Stable and well-appearing at time of discharge. - Vital Signs Vital signs: Temp Pulse Resp BP Pulse Ox 98.2 F 96 18 137/87 H 99 10/15/19 01:19 10/15/19 01:19 10/15/19 01:19 10/15/19 01:19 10/15/19 01:19 - Laboratory Result Diagrams: 10/14/19 23:08 10/14/19 23:08 Laboratory results interpreted by me: 10/14/19 23:08 Sodium 135.1 L Chloride 97 L Carbon Dioxide 32 H Glucose 268 H Procedures - Incision and Drainage Left lower lateral abdomen Type: Single Anesthetic type: 1% Lidocaine w/epi mL's of anesthetic: 9 Blade size: 11 I&D procedure: Shurclens applied, Iodoform packing placed, Sterile dressing applied Incision Method: Incision made by scalpel Amount/type of drainage: About 4 cc of purulent drainage, small amount of blood Discharge - Discharge Clinical Impression: Abscess Cellulitis Qualifiers: Site of cellulitis: unspecified site Qualified Code(s): L03.90 - Cellulitis, unspecified Condition: Stable Disposition: HOME, SELF-CARE Additional Instructions: The abscess has been drained. There is also an area of infection around this called cellulitis. Take your antibiotics as prescribed. The packing needs to be removed in 2 to 3 days, I recommend that you be re-seen either here or with primary care to have this done. Keep area clean, clean gently with soap and water. Return if you worsen including spreading redness, fever, developing pain, vo miting, or any other concerning symptoms. Prescriptions: Sulfamethoxazole/Trimethoprim [Bactrim Ds Tablet] 1 each PO BID #14 tablet Cephalexin Monohydrate [Keflex 500 mg Capsule] 500 mg PO QID #28 capsule Hydrocodone/Acetaminophen [[place] 5-325 mg Tablet] 1 - 2 tab PO ASDIR PRN #8 tablet PRN Reason: Referrals: MARYELLEN ZARATE MD [Primary Care Provider] - Follow up as needed
[2019-10-14 23:26] LABS: ABSOLUTE BASOPHILS # (AUTO) 0.1 10^3/uL (0.0-0.2); ABSOLUTE EOSINOPHILS # (AUTO) 0.1 10^3/uL (0.0-0.6); ABSOLUTE MONOCYTES (AUTO) 0.4 10^3/uL (0.1-1.4); ABSOLUTE NEUT (AUTO) 7.4 10^3/uL (1.7-8.2); BASOPHILS % (AUTO) 0.6 % (0-2); EOSINOPHILS % (AUTO) 1.3 % (0-6); HEMATOCRIT 43.1 % (36.0-47.0); HEMOGLOBIN 15.1 g/dL (12.0-15.5); LYMPHOCYTES % (AUTO) 20.1 % (13-45); MEAN CORPUSCULAR HEMOGLOBIN 31.8 pg (27.0-33.4); MEAN CORPUSCULAR VOLUME 91 fl (80-97); MONOCYTES % (AUTO) 4.3 % (3-13); PLATELET COUNT 169 10^3/uL (150-450); RED BLOOD COUNT 4.75 10^6/uL (3.72-5.28); RED CELL DISTRIBUTION WIDTH 13.4 % (11.5-14.0); SEGMENTED NEUTROPHILS % (AUTO) 73.7 % (42-78); TOTAL CELLS COUNTED % (AUTO) 100 %
[2019-10-14 23:37] LABS: ANION GAP 6 (5-19); BLOOD UREA NITROGEN 13 mg/dL (7-20); CARBON DIOXIDE 32 mmol/L (22-30); CHLORIDE 97 mmol/L (98-107); GLUCOSE 268 mg/dL (75-110); POTASSIUM 3.8 mmol/L (3.6-5.0)
[2019-10-15] MEDS ORDERED: LIDOCAINE 1%/EPINEPHRINE INJ 20 ML VIAL INJ ONE (00:01)
--- NOTE | 2019-10-15 00:01 | RADIOLOGY REPORT (SQ) ---
Ultrasound of the left lower quadrant abdominal: 10/14/2019 10:44 PM CDT HISTORY: 49-year-old patient with concern for fluid collection at the abdominal wall. COMPARISON: None available TECHNIQUE: Multiple grayscale and color Doppler images of the left lower quadrant abdominal wall were obtained. FINDINGS: The soft tissues were assessed approximately 4.5 cm of depth. In this area, there is a hypoechoic area with peripheral increased vascularity noted at the area of interest which measures at least 2.2 x 1.2 x 1.4 cm. This likely represents phlegmonous change. IMPRESSION: There is a hypoechoic area seen at the area of interest measuring at least 2.2 cm most likely representing a developing abscess/phlegmonous change.
[2019-10-15] MEDS ORDERED: HYDROCODONE/ACETAMINOPHEN 5-325 MG (6 TAB/ER DISP) PO PRN (01:02)
[2019-10-15 01:22] VITALS: BP 137/87
== END 2019-10-15 01:24 | disposition home or self-care (01) ==
LOC: ER 20:43
DX: L02.211 Cutaneous abscess of abdominal wall (principal); L03.311 Cellulitis of abdominal wall; E11.65 Type 2 diabetes mellitus with hyperglycemia; Z96.41 Presence of insulin pump (external) (internal); F17.200 Nicotine dependence, unspecified, uncomplicated; I25.10 Atherosclerotic heart disease of native coronary artery without angina pectoris; I10 Essential (primary) hypertension; J45.909 Unspecified asthma, uncomplicated; Z88.8 Allergy status to other drugs, medicaments and biological substances; Z91.048 Other nonmedicinal substance allergy status
CPT/HCPCS: 99284; 36415; 87040; 85025; 87077; 80048; 76705; 10060; A9270 ×3; J3490; 87186

== ENCOUNTER 2020-03-02 04:12 | Emergency (ER) | payer MEDICARE, MEDICAID ==
[2020-03-02 04:21] VITALS: BP 131/81
--- NOTE | 2020-03-02 06:21 | ER Document Report ---
ED General - General Chief Complaint: Ear Pain Stated Complaint: RIGHT EAR PAIN Time Seen by Provider: 03/02/20 05:44 Primary Care Provider: MARYELLEN ZARATE MD [Primary Care Provider] - Follow up as needed Information source: Patient TRAVEL OUTSIDE OF THE [place] IN LAST 30 DAYS: No - HPI Notes: Patient is a 49-year-old female who presents with right ear pain for the past week. Patient states her pain worsened and awoke her this morning. She reports pain and swelling to the area behind her ear. She denies any other symptoms including left ear pain, nasal congestion, fever, sore throat, shortness of breath, chest pain, abdominal pain, nausea, and vomiting. She has been taking Tylenol with no relief. Patient has a history of DMII, CVA, TIAs, hypertension, HLD, depression and anxiety. Patient is an everyday smoker but denies alcohol and recreational drug use. - Related Data Allergies/Adverse Reactions: prednisone [Prednisone] Allergy (Severe, Verified 10/14/19 21:12) Hives red dye [Red Dye] Allergy (Severe, Verified 10/14/19 21:12) Hives Home Medications: Metformin. Prestique. Buspar. Lyrica. Horizent. cymbalta Past Medical History - General Information source: Patient - Social History Smoking Status: Current Every Day Smoker Chew tobacco use (# tins/day): No Frequency of alcohol use: None Drug Abuse: None Family History: DM. denies: CAD, Hypertension, Malignancy - Past Medical History Cardiac Medical History: Reports: Hx Coronary Artery Disease, Hx Hypercholesterolemia, Hx Hypertension Denies: Hx Atrial Fibrillation, Hx Congestive Heart Failure, Hx DVT, Hx Heart Attack, Hx Pulmonary Embolism Pulmonary Medical History: Reports: Hx Asthma, Hx Bronchitis, Hx Pneumonia Denies: Hx COPD, Hx Tuberculosis Neurological Medical History: Reports: Hx Cerebrovascular Accident - 2012, L side seakness TIA x7 (most recent 2016). Denies: Hx Seizures Endocrine Medical History: Reports: Hx Diabetes Mellitus Type 2. Denies: Hx Diabetes Mellitus Type 1, Hx Hyperthyroidism, Hx Hypothyroidism Renal/ Medical History: Denies: Hx Peritoneal Dialysis GI Medical History: Denies: Hx Cirrhosis, Hx Crohn's Disease, Hx Hepatitis, Hx Ulcerative Colitis Musculoskeletal Medical History: Reports Hx Arthritis - generalized, Denies Hx Fibromyalgia, Denies Hx Gout Skin Medical History: Denies Hx Eczema, Denies Hx Psoriasis Psychiatric Medical History: Reports: Hx Bipolar Disorder, Hx Depression Infectious Medical History: Denies: Hx Hepatitis Past Surgical History: Reports: Hx Oral Surgery, Hx Orthopedic Surgery - R ankle, Hx Tonsillectomy - Immunizations Hx Diphtheria, Pertussis, Tetanus Vaccination: No Hx Pneumococcal Vaccination: 03/22/14 Review of Systems - Review of Systems Constitutional: No symptoms reported EENT: See HPI Cardiovascular: No symptoms reported Respiratory: No symptoms reported Gastrointestinal: No symptoms reported Genitourinary: No symptoms reported Female Genitourinary: No symptoms reported Musculoskeletal: No symptoms reported Skin: No symptoms reported Hematologic/Lymphatic: No symptoms reported Neurological/Psychological: No symptoms reported Physical Exam - Vital signs Vitals: Temp Pulse Resp BP Pulse Ox 98.6 F 93 18 131/81 H 98 03/02/20 04:20 03/02/20 04:20 03/02/20 04:20 03/02/20 04:03/02/20 04:20 - Notes Notes: PHYSICAL EXAMINATION: VITALS: Vitals reviewed and within normal limits. GENERAL: Well-appearing, well-nourished and in no acute distress. HEAD: Atraumatic, normocephalic. EYES: Pupils equal round and reactive to light, extraocular movements intact, sclera anicteric, conjunctiva are normal. ENT: Nares patent, oropharynx clear without exudates. Moist mucous membranes. Bilateral TMs clear with no erythema noted to EAC. No mastoid tenderness. NECK: Normal range of motion. Right posterior cervical chain lymphadenopathy with overlying tenderness. EXTREMITIES: Normal range of motion, no pitting or edema. No cyanosis. NEUROLOGICAL: No focal neurological deficits. Moves all extremities spontaneously and on command. PSYCH: Normal mood, normal affect. SKIN: Warm, Dry, normal turgor, no rashes or lesions noted. Course - Re-evaluation Re-evalutation: Patient is a 49-year-old female with right ear pain for the past week that worsened earlier this morning. She denies any other symptoms. On exam, TMs are clear bilaterally, no mastoid tenders and right posterior cervical chain lymphadenopathy. I discussed these exam findings with the patient and recommended a shot of decadron to help with the inflammation. Patient declined due to her prednisone allergy. I advised she take ibuprofen and tylenol as needed for pain. Return precautions given. Patient will be discharged home. - Vital Signs Vital signs: Temp Pulse Resp BP Pulse Ox 98.6 F 93 18 131/81 H 98 03/02/20 04:20 03/02/20 04:20 03/02/20 04:20 03/02/20 04:20 03/02/20 04:20 Discharge - Discharge Clinical Impression: Right ear pain, Lymphadenopathy Condition: Stable Disposition: HOME, SELF-CARE Additional Instructions: Alternate with ibuprofen and tylenol as needed for pain. You have enlargement of lymph glands, called lymphadenopathy. Lymph glands filter tissue fluids. They help to fight infection. Most of the time, enlarged lymph glands are not serious. Lymph glands may react to a viral or bacterial infection by becoming swollen and painful. When the infection goes away, the glands shrink. Sometimes a lymph gland will remain enlarged for a long time after an infection. Occasionally, a lymph gland may be overwhelmed by infection and form an abscess. If an enlarged lymph gland has signs that are suspicious for tumor, the doctor will recommend a biopsy. A suspicious gland usually is NOT painful, grows very slowly, and is rock-hard to touch. See the doctor or return if there is increasing swelling and redness, high fever, difficulty breathing, or any other change for the worse. Referrals: MARYELLEN ZARATE MD [Primary Care Provider] - Follow up as needed
== END 2020-03-02 06:38 | disposition home or self-care (01) ==
LOC: ER 04:12
DX: H92.01 Otalgia, right ear (principal); R59.0 Localized enlarged lymph nodes; F17.200 Nicotine dependence, unspecified, uncomplicated; I25.10 Atherosclerotic heart disease of native coronary artery without angina pectoris; I10 Essential (primary) hypertension; J45.909 Unspecified asthma, uncomplicated; E11.9 Type 2 diabetes mellitus without complications; F32.9 Major depressive disorder, single episode, unspecified; Z79.899 Other long term (current) drug therapy; Z79.84 Long term (current) use of oral hypoglycemic drugs; Z88.8 Allergy status to other drugs, medicaments and biological substances; Z91.048 Other nonmedicinal substance allergy status
CPT/HCPCS: 99282

== ENCOUNTER 2020-03-21 13:46 | Emergency (ER) | payer MEDICARE, MEDICAID ==
[2020-03-21 14:34] LABS: ABSOLUTE EOSINOPHILS # (AUTO) 0.2 10^3/uL (0.0-0.6); ABSOLUTE NEUT (AUTO) 4.5 10^3/uL (1.7-8.2); HEMATOCRIT 41.6 % (36.0-47.0); TOTAL CELLS COUNTED % (AUTO) 100 %; WHITE BLOOD COUNT 7.1 10^3/uL (4.0-10.5)
[2020-03-21 14:37] LABS: ABSOLUTE MONOCYTES (AUTO) 0.3 10^3/uL (0.1-1.4); BASOPHILS % (AUTO) 0.4 % (0-2); EOSINOPHILS % (AUTO) 2.2 % (0-6); MEAN CORPUSCULAR HEMOGLOBIN 32.7 pg (27.0-33.4); MEAN CORPUSCULAR VOLUME 91 fl (80-97); MONOCYTES % (AUTO) 4.5 % (3-13); PLATELET COUNT 146 10^3/uL (150-450); RED BLOOD COUNT 4.58 10^6/uL (3.72-5.28); RED CELL DISTRIBUTION WIDTH 13.3 % (11.5-14.0); SEGMENTED NEUTROPHILS % (AUTO) 63.9 % (42-78)
[2020-03-21 14:51] LABS: ALKALINE PHOSPHATASE 121 U/L (38-126); ANION GAP 9 (5-19); ASPARTATE AMINO TRANSFERASE 16 U/L (14-36); BILIRUBIN,DIRECT 0.3 mg/dL (0.0-0.4); BILIRUBIN,TOTAL 0.7 mg/dL (0.2-1.3); BLOOD UREA NITROGEN 8 mg/dL (7-20); CALCIUM 9.2 mg/dL (8.4-10.2); CARBON DIOXIDE 28 mmol/L (22-30); CHLORIDE 98 mmol/L (98-107); GLUCOSE 383 mg/dL (75-110); TOTAL PROTEIN 6.5 g/dL (6.3-8.2)
--- NOTE | 2020-03-21 15:23 | ER Document Report ---
Entered by LAUREN DEL ROSARIO SCRIBE 03/21/20 1439 Acting as scribe for:MALU MITCHELL MD ED General - General Chief Complaint: High Blood Sugar Stated Complaint: BLOOD SUGAR ISSUES Time Seen by Provider: 03/21/20 14:36 Primary Care Provider: MARYELLEN ZARATE MD [Primary Care Provider] - Follow up in 3-5 days Mode of Arrival: Ambulatory Information source: Patient Notes: This 49 year old female patient presents to the emergency department today with complaints of "passing out" prior to arrival. Patient's mom at bedside mentions that the patient was in the process of packing up the contents of her trailer and moving out when her "passing out" began. Patient states that she thinks she had an anxiety attack. Mom describes her passing out as "coming in and out", responding to slaps on the face per mom. Mom mentions that the patient "has not eaten anything all day or taken her insulin". TRAVEL OUTSIDE OF THE [place] IN LAST 30 DAYS: No - Related Data Allergies/Adverse Reactions: Penicillins Allergy (Severe, Verified 03/21/20 14:21) prednisone [Prednisone] Allergy (Severe, Verified 10/14/19 21:12) Hives red dye [Red Dye] Allergy (Severe, Verified 10/14/19 21:12) Hives Past Medical History - General Information source: Patient - Social History Smoking Status: Current Every Day Smoker Cigarette use (# per day): Yes - 1/2 ppd Chew tobacco use (# tins/day): No Frequency of alcohol use: None Drug Abuse: None Lives with: Family Family History: Reviewed & Not Pertinent, DM - Past Medical History Cardiac Medical History: Reports: Hx Coronary Artery Disease, Hx Hypercholesterolemia, Hx Hypertension Pulmonary Medical History: Reports: Hx Asthma, Hx Bronchitis, Hx Pneumonia Neurological Medical History: Reports: Hx Cerebrovascular Accident - 2012, L side seakness TIA x7 (most recent 2016) Endocrine Medical History: Reports: Hx Diabetes Mellitus Type 2 Musculoskeletal Medical History: Reports Hx Arthritis - generalized Psychiatric Medical History: Reports: Hx Anxiety, Hx Bipolar Disorder, Hx Depression Past Surgical History: Reports: Hx Oral Surgery, Hx Orthopedic Surgery - R ankle ORIF, Hx Tonsillectomy - Immunizations Hx Diphtheria, Pertussis, Tetanus Vaccination: No Hx Pneumococcal Vaccination: 03/22/14 Review of Systems - Review of Systems Constitutional: No symptoms reported EENT: No symptoms reported Cardiovascular: See HPI, Syncope Respiratory: No symptoms reported Gastrointestinal: No symptoms reported Genitourinary: No symptoms reported Female Genitourinary: No symptoms reported Musculoskeletal: No symptoms reported Skin: No symptoms reported Hematologic/Lymphatic: No symptoms reported Neurological/Psychological: See HPI, Depression, Anxiety -: Yes All other systems reviewed and negative Physical Exam - Vital signs Vitals: Temp 97.9 F 03/21/20 13:46 - Notes Notes: Physical Exam: General: Alert, appears well. Chronic hoarse voice. HEENT: Normocephalic. Atraumatic. PERRL. Extraocular movements intact. Oropharynx clear. Neck: Supple. Non-tender. Respiratory: No respiratory distress. Coarse breath sounds bilaterally. Cardiovascular: Regular rate and rhythm. Abdominal: Morbidly obese. Non-tender. No distension. Normal Bowel Sounds. Back: No gross abnormalities. Extremities: Moves all four extremities. Upper extremities: Normal inspection. Normal ROM. Lower extremities: Normal inspection. No edema. Normal ROM. Neurological: Normal cognition. AAOx4. Normal speech. Psychological: Normal affect. Normal Mood. Skin: Warm. Dry. Normal color. Course - Vital Signs Vital signs: Temp Pulse Resp BP Pulse Ox 97.6 F 18 119/85 97 03/21/20 13:54 03/21/20 15:01 03/21/20 15:01 03/21/20 15:01 - Laboratory Result Diagrams: 03/21/20 14:02 03/21/20 14:02 Laboratory results interpreted by me: 03/21/20 03/21/20 03/21/20 13:57 14:02 14:02 Plt Count 146 L Sodium 135.3 L Glucose 383 H POC Glucose 377 H Hemoglobin A1c % Urine Glucose (UA) Urine Blood 03/21/20 03/21/20 03/21/20 14:02 15:15 16:18 Plt Count Sodium Glucose POC Glucose 329 H Hemoglobin A1c % > 14.0 H Urine Glucose (UA) >=500 H Urine Blood SMALL H - EKG Interpretation by Co EKG shows normal: Sinus rhythm, [place], Intervals, QRS Complexes, ST-T Waves Rate: Normal - 73 Rhythm: NSR [place]/QRS: Right axis deviation When compared to previous EKG there are: No significant change Discharge - Discharge Clinical Impression: Anxiety attack, Poorly controlled diabetes mellitus, Syncope and collapse Condition: Stable Disposition: HOME, SELF-CARE Additional Instructions: Syncopal Episode Syncope (fainting or near-fainting) can occur from many different health problems. Or it can be a simple fainting spell requiring no treatment. It is safe for you to go home, but further evaluation will likely be necessary. Your work-up may include tests for internal bleeding, heart disease, medication problems, or near-strokes. Tests are not always required, however, depending on the nature of your problem. The warning signs of an impending faint include: dizziness, lightheadedness, nausea, hot flashes, tingling, and weakness. If this happens, lay down and put your feet up, then wait until all of these symptoms have passed before standing up again. If these episodes become recurrent, or if you develop chest pain, heart palpitations, mental confusion, blurred vision, or headache, then you should call the physician, or go to the emergency room. Anxiety The physician feels that some of your health problems are being caused by anxiety. Anxiety affects your health in many ways. Anxiety alone can cause palpitations, sweats, chest pains, abdominal pains, shortness of breath, and headaches. It contributes to ulcer disease, high blood pressure, irritable bowel syndrome, and has been shown to cause flare-ups of many other diseases. Anxiety is not a simple disorder to treat. If the anxiety is due to recent life stresses, you may simply need time to "work through" the changes. If the anxiety is due to an underlying unhappiness with yourself or due to psychiatric disturbance, professional help will be needed. Your physician can refer you for further help if needed. Anti-anxiety medication is occasionally given if the stress is acute or if you are having trouble sleeping. Chronic or frequent use of these medications is not a good idea because the body becomes reliant on it, preventing you from dealing with life's normal stresses. I suspect your passing out spell was due to overwhelming anxiety and stress about having to pack up all of your belongings too quickly. Your lab work does show your diabetes is not very well controlled. Hemoglobin A1c was greater than 14.0 You need to follow-up with your primary care provider next week to discuss adjusting your medications to get better control of your diabetes. Take copies of the lab work with you when you go to see your doctor. RETURN TO THE EMERGENCY ROOM IF ANY NEW OR WORSENING SYMPTOMS. Referrals: MARYELLEN ZARATE MD [Primary Care Provider] - Follow up in 3-5 days I personally performed the services described in the documentation, reviewed and edited the documentation which was dictated to the scribe in my presence, and it accurately records my words and actions.
[2020-03-21 16:05] LABS: APPEARANCE,URINE SLIGHTLY-CLOUDY; BILIRUBIN,URINE NEGATIVE (NEGATIVE); COLOR,URINE YELLOW; GLUCOSE, URINE >=500 mg/dL (NEGATIVE); KETONES,URINE NEGATIVE (NEGATIVE); LEUKOCYTE ESTERASE,URINE NEGATIVE (NEGATIVE); NITRITE,URINE NEGATIVE (NEGATIVE); PROTEIN,URINE NEGATIVE (NEGATIVE); URINE SPECIFIC GRAVITY 1.036; UROBILINOGEN,URINE NEGATIVE mg/dL (<2.0)
[2020-03-21 18:29] VITALS: BP 136/98
--- NOTE | 2020-03-22 00:48 | EKG REPORT ---
SEVERITY:- ABNORMAL ECG - SINUS RHYTHM RIGHT AXIS DEVIATION ABNRM R PROG, CONSIDER ASMI OR LEAD PLACEMENT : Confirmed by: Mirtha Carcamo MD 22-Mar-2020 00:48:02
== END 2020-03-21 18:29 | disposition home or self-care (01) ==
LOC: ER 13:46
DX: R55 Syncope and collapse (principal); F41.1 Generalized anxiety disorder; E11.9 Type 2 diabetes mellitus without complications; F17.210 Nicotine dependence, cigarettes, uncomplicated; I25.10 Atherosclerotic heart disease of native coronary artery without angina pectoris; E78.00 Pure hypercholesterolemia, unspecified; I10 Essential (primary) hypertension; Z86.73 Personal history of transient ischemic attack (TIA), and cerebral infarction without residual deficits; Z79.4 Long term (current) use of insulin
CPT/HCPCS: 36415; 80053; 81001; 82550; 82962; 83036; 84484; 85025; 93005; 93010; 99284

== ENCOUNTER 2020-03-30 15:52 | Emergency (ER) | payer MEDICARE, MEDICAID ==
--- NOTE | 2020-03-30 16:07 | ER Document Report ---
ED Medical Screen (RME) - General Chief Complaint: Cough Stated Complaint: COUGH,CONGESTION Time Seen by Provider: 03/30/20 16:00 Primary Care Provider: MARYELLEN ZARATE MD [Primary Care Provider] - Follow up as needed Mode of Arrival: Ambulatory Information source: Patient Notes: 49-year-old female presents to ED for complaint of cough congestion sneezing body aches tired weak for the last 3 days she states she has a history of asthma high blood pressure cervical cancer diabetes depression anxiety high cholesterol and right ankle fracture and surgery. She states she does smoke 1/2 pack a day. She states she has been having the symptoms for about 3 days and she just cannot stand it anymore so she came to the emergency room. Patient is alert oriented respirations regular nonlabored speaking in full sentences. I have greeted and performed a rapid initial assessment of this patient. A comprehensive ED assessment and evaluation of the patient, analysis of test results and completion of medical decision making process will be conducted by an additional ED providers. TRAVEL OUTSIDE OF THE [place] IN LAST 30 DAYS: No - Related Data Allergies/Adverse Reactions: Penicillins Allergy (Severe, Verified 03/30/20 16:01) prednisone [Prednisone] Allergy (Severe, Verified 03/30/20 16:01) Hives red dye [Red Dye] Allergy (Severe, Verified 03/30/20 16:01) Hives Past Medical History - Past Medical History Cardiac Medical History: Reports: Hx Coronary Artery Disease, Hx Hypercholesterolemia, Hx Hypertension Denies: Hx Atrial Fibrillation, Hx Congestive Heart Failure, Hx DVT, Hx Heart Attack, Hx Pulmonary Embolism Pulmonary Medical History: Reports: Hx Asthma, Hx Bronchitis, Hx Pneumonia Denies: Hx COPD, Hx Tuberculosis Neurological Medical History: Reports: Hx Cerebrovascular Accident - 2012, L side seakness TIA x7 (most recent 2016). Denies: Hx Seizures Endocrine Medical History: Reports: Hx Diabetes Mellitus Type 2. Denies: Hx Diabetes Mellitus Type 1, Hx Hyperthyroidism, Hx Hypothyroidism Renal/ Medical History: Denies: Hx Peritoneal Dialysis GI Medical History: Denies: Hx Cirrhosis, Hx Crohn's Disease, Hx Hepatitis, Hx Ulcerative Colitis Musculoskeltal Medical History: Reports Hx Arthritis - generalized, Denies Hx Fibromyalgia, Denies Hx Gout Skin Medical History: Denies Hx Eczema, Denies Hx Psoriasis Psychiatric Medical History: Reports: Hx Anxiety, Hx Bipolar Disorder, Hx Depression Infectious Medical History: Denies: Hx Hepatitis Past Surgical History: Reports: Hx Oral Surgery, Hx Orthopedic Surgery - R ankle ORIF, Hx Tonsillectomy - Immunizations Hx Diphtheria, Pertussis, Tetanus Vaccination: No Physical Exam - Vital signs Vitals: Temp Pulse Resp BP Pulse Ox 98.2 F 114 H 18 136/86 H 96 03/30/20 15:58 03/30/20 15:58 03/30/20 15:58 03/30/20 15:58 03/30/20 15:58 Course - Vital Signs Vital signs: Temp Pulse Resp BP Pulse Ox 98.2 F 114 H 18 136/86 H 96 03/30/20 15:58 03/30/20 15:58 03/30/20 15:58 03/30/20 15:58 03/30/20 15:58 Doctor's Discharge - Discharge Referrals: MARYELLEN ZARATE MD [Primary Care Provider] - Follow up as needed
--- NOTE | 2020-03-30 16:28 | ER Document Report ---
ED Respiratory Problem - General Chief Complaint: Flu Symptoms Stated Complaint: COUGH,CONGESTION Time Seen by Provider: 03/30/20 16:00 Primary Care Provider: MARYELLEN ZARATE MD [Primary Care Provider] - Follow up as needed Mode of Arrival: Ambulatory Information source: Patient Notes: 49-year-old female past medical history significant diabetes, hyperlipidemia, hypertension, depression, anxiety, neuropathy presents to the emergency room Complaining of cough with chest congestion for the past 3 days. Denies any chest pain, no shortness of breath, no abdominal pain, no nausea, no vomiting, no diarrhea. Denies any COVID-19 exposure. Not taking any medications for her symptoms. TRAVEL OUTSIDE OF THE [place] IN LAST 30 DAYS: No - Related Data Allergies/Adverse Reactions: Penicillins Allergy (Severe, Verified 03/30/20 16:01) prednisone [Prednisone] Allergy (Severe, Verified 03/30/20 16:01) Hives red dye [Red Dye] Allergy (Severe, Verified 03/30/20 16:01) Hives Home Medications: humalog, lyrica, cymbalta, trazadone, ambien, buspar Past Medical History - General Information source: Patient - Social History Smoking Status: Current Every Day Smoker Chew tobacco use (# tins/day): No Frequency of alcohol use: None Drug Abuse: None Family History: Reviewed & Not Pertinent, DM Patient has homicidal ideation: No - Past Medical History Cardiac Medical History: Reports: Hx Coronary Artery Disease, Hx Hypercholesterolemia, Hx Hypertension Denies: Hx Atrial Fibrillation, Hx Congestive Heart Failure, Hx DVT, Hx Heart Attack, Hx Pulmonary Embolism Pulmonary Medical History: Reports: Hx Asthma, Hx Bronchitis, Hx Pneumonia Denies: Hx COPD, Hx Tuberculosis Neurological Medical History: Reports: Hx Cerebrovascular Accident - 2012, L zachariah e seakness TIA x7 (most recent 2016). Denies: Hx Seizures Endocrine Medical History: Reports: Hx Diabetes Mellitus Type 2. Denies: Hx Diabetes Mellitus Type 1, Hx Hyperthyroidism, Hx Hypothyroidism Renal/ Medical History: Denies: Hx Peritoneal Dialysis GI Medical History: Denies: Hx Cirrhosis, Hx Crohn's Disease, Hx Hepatitis, Hx Ulcerative Colitis Musculoskeletal Medical History: Reports Hx Arthritis - generalized, Denies Hx Fibromyalgia, Denies Hx Gout Skin Medical History: Denies Hx Eczema, Denies Hx Psoriasis Psychiatric Medical History: Reports: Hx Anxiety, Hx Bipolar Disorder, Hx Depression Infectious Medical History: Denies: Hx Hepatitis Past Surgical History: Reports: Hx Oral Surgery, Hx Orthopedic Surgery - R ankle ORIF, Hx Tonsillectomy - Immunizations Hx Diphtheria, Pertussis, Tetanus Vaccination: No Hx Pneumococcal Vaccination: 03/22/14 Review of Systems - Review of Systems Constitutional: No symptoms reported EENT: Nose congestion Cardiovascular: No symptoms reported Respiratory: Cough. denies: Short of breath, Wheezing Gastrointestinal: No symptoms reported Musculoskeletal: No symptoms reported Skin: No symptoms reported Neurological/Psychological: No symptoms reported -: Yes All other systems reviewed and negative Physical Exam - Vital signs Vitals: Temp Pulse Resp BP Pulse Ox 98.2 F 114 H 18 136/86 H 96 03/30/20 15:58 03/30/20 15:58 03/30/20 15:58 03/30/20 15:58 03/30/20 15:58 - Notes Notes: GENERAL: Mild acute distress, non-toxic appearance. HEAD: Normal with no signs of head trauma. EYES: PERRLA, EOMI, conjunctiva normal, no discharge. EARS: Hearing grossly intact. NOSE: Normal. THROAT: Oropharynx is normal. NECK: Normal range of motion, no tenderness, supple, no lymphadenopathy, No adenopathy, no JVD. CHEST: Scattered rhonchi no wheezes no rales. CARDIAC: Tachycardic, normal. S1 and S2, without murmurs, gallops, or rubs. VASCULAR: No Edema. Peripheral pulses normal and equal in all extremities. ABDOMEN: Normal and soft with no tenderness, no masses or pulsatile masses. No organomegaly. Positive bowel sounds x4. No CVA tenderness noted bilaterally. GASTROINTESTINAL: Bowel sounds normal LYMPATHTIC: No lymphadenopathy noted. MUSCULOSKELETAL: Good range of motion of all major joints. Extremities without clubbing, cyanosis or edema. NEUROLOGICAL: Alert and oriented x 3. No focal sensory or strength deficits. Speech normal. Follows commands appropriately. PSYCHIATRIC: Normal Affect, judgement and mood. SKIN: Normal appearance with no rashes or lesions. Course - Re-evaluation Re-evalutation: 03/30/20 17:51 Patient is afebrile, nontoxic-appearing, reviewed negative labs and x-ray results with patient. Counseled on viral illness. Counseled on supportive therapy. Recommend use of [id number] Covid HBP for her symptoms. Covid testing was ordered by triage provider. Patient was counseled on need to self quarantine for 14 days or until she gets a negative Covid test. Outpatient follow-up with primary care physician if not improving in 2 to 3 days. Patient was given strict return to the emergency room guidelines. Return for any new or worsening symptoms. All questions were answered. Patient verbalized understanding and agrees with plan of care. 03/30/20 17:53 03/30/20 18:54 - Vital Signs Vital signs: Temp Pulse Resp BP Pulse Ox 98.4 F 87 19 137/74 H 97 03/30/20 18:09 03/30/20 18:09 03/30/20 18:09 03/30/20 18:09 03/30/20 18:09 - Diagnostic Test Radiology reviewed: Reports reviewed Discharge - Discharge Clinical Impression: Viral URI with cough, Person under investigation for COVID-19 Condition: Stable Disposition: HOME, SELF-CARE Instructions: COVID-19 Guidance for Persons Under Investigation, Upper Respiratory Illness ([facility]), Viral Syndrome ([facility]) Additional Instructions: Supportive therapy. [id number] Coricidin HBP, avoid products with guaifenesin you are required to self quarantine for 14 days or until you receive a negative COVID-19 test. Outpatient follow-up with primary care physician if not improving in 2 to 3 days. Return to the emergency room for any new or worsening symptoms. Referrals: MARYELLEN ZARATE MD [Primary Care Provider] - Follow up as needed
[2020-03-30 17:10] LABS: A TYPE INFLUENZA AG NEGATIVE (NEGATIVE); B INFLUENZA AG NEGATIVE (NEGATIVE)
--- NOTE | 2020-03-30 17:18 | RADIOLOGY REPORT (SQ) ---
"EXAM DESCRIPTION: CHEST SINGLE VIEW IMAGES COMPLETED DATE/TIME: 03/30/2020 4:59 pm REASON FOR STUDY: cough congestion body ache COMPARISON: Chest x-ray 07/13/2019, 03/29/2019, 02/04/2019 EXAM PARAMETERS: NUMBER OF VIEWS: One view. TECHNIQUE: Single frontal radiographic view of the chest acquired. RADIATION DOSE: NA LIMITATIONS: None. FINDINGS: LUNGS AND PLEURA: No consolidation, pneumothorax or pleural effusion. MEDIASTINUM AND HILAR STRUCTURES: No masses. Contour normal. HEART AND VASCULAR STRUCTURES: Heart normal in size. Normal vasculature. BONES: No acute findings. HARDWARE: None in the chest. IMPRESSION: NO ACUTE RADIOGRAPHIC FINDING IN THE CHEST. TECHNICAL DOCUMENTATION: JOB ID: [id number] [employer]- All Rights Reserved Reading location - IP/workstation name: [email or web address]"
[2020-03-30 18:10] VITALS: BP 137/74
== END 2020-03-30 18:23 | disposition home or self-care (01) ==
LOC: ER 15:52
DX: J06.9 Acute upper respiratory infection, unspecified (principal); R68.89 Other general symptoms and signs; Z20.828 Contact with and (suspected) exposure to other viral communicable diseases; E11.9 Type 2 diabetes mellitus without complications; E78.5 Hyperlipidemia, unspecified; I10 Essential (primary) hypertension; F32.9 Major depressive disorder, single episode, unspecified; F41.9 Anxiety disorder, unspecified; Z88.0 Allergy status to penicillin; Z79.4 Long term (current) use of insulin
CPT/HCPCS: 99284; 87070; 87880; 87804; 71045; U0003; C9803; 87635